=== PATIENT | female | born 1955 | race Caucasian/White ===

== ENCOUNTER 2016-04-12 09:29 | Emergency (ER) | payer MEDICARE, OTHER ==
--- NOTE | 2016-04-12 09:49 | ED ---
Chest Pain HPI - General Chief Complaint: Chest Pain Stated Complaint: Chest Pain Time Seen by Provider: 04/12/16 09:29 Source: patient, EMS, RN notes reviewed Mode of arrival: EMS - History of Present Illness Initial Comments: Additionally the patient does admit to smoking for 6 cigarettes per day she had quit but started again did discuss the need for cessation. She additionally states that the symptoms started after eating a banana and bending over. She does have reflux and hiatal hernia and she has she believes this is a cause of the pain. MD Complaint: chest pain - Related Data Home Medications Medication Instructions Recorded Confirmed Ascorbic Acid [Vitamin C] 1,000 mg PO HS 09/05/13 04/12/16 Baclofen [Lioresal] 10 mg PO DAILY PRN 09/05/13 04/12/16 Ergocalciferol [Vitamin D2 50,000 unit PO SA 09/05/13 04/12/16 (DRISDOL)] amLODIPine BESYLATE [Norvasc] 5 mg PO BID 09/05/13 04/12/16 Ondansetron Odt [Zofran Odt] 8 mg PO Q12HR PRN 11/11/13 04/12/16 Cetirizine HCl [Zyrtec] 10 mg PO DAILY PRN 06/29/15 04/12/16 Famotidine 40 mg PO BID 06/29/15 04/12/16 Levothyroxine Sodium [Synthroid] 25 mcg PO DAILY 06/29/15 04/12/16 Lidocaine [Lidoderm 5% Patch] 1 patch TRANSDERM DAILY PRN 06/29/15 04/12/16 Calcium Carbonate [Tums] 1,000 mg PO DAILY 04/12/16 04/12/16 Cyanocobalamin [Vitamin B-12] 1,000 mcg PO DAILY 04/12/16 04/12/16 Magnesium Oxide [Magnesium Oxide] 500 mg PO BID 04/12/16 04/12/16 buPROPion HCL [Wellbutrin XL] 150 mg PO DAILY 04/12/16 04/12/16 Allergies Allergy/AdvReac Type Severity Reaction Status Date / Time adhesive Allergy Unknown Verified 04/12/16 10:27 amitriptyline HCl Allergy Unknown Verified 04/12/16 10:27 [From Elavil] bacitracin Allergy Unknown Verified 04/12/16 10:27 [From Neosporin ([id number])] codeine Allergy Unknown Verified 04/12/16 10:27 cortisone Allergy Unknown Verified 04/12/16 10:27 Iodinated Contrast Media - Allergy Unknown Verified 04/12/16 10:27 Oral and iodine Allergy Unknown Verified 04/12/16 10:27 latex Allergy Unknown Verified 04/12/16 10:27 naproxen [From Naprosyn] Allergy Unknown Verified 04/12/16 10:27 neomycin Allergy Unknown Verified 04/12/16 10:27 [From Neosporin ([id number])] polymyxin B Allergy Unknown Verified 04/12/16 10:27 [From Neosporin ([id number])] triamcinolone acetonide Allergy Unknown Verified 04/12/16 10:27 [From Kenalog] Review of Systems ROS Statement: Those systems with pertinent positive or pertinent negative responses have been documented in the HPI. ROS Other: All systems not noted in ROS Statement are negative. EKG Findings - EKG Results: EKG: interpreted by BRITTANY, sinus rhythm (Sinus rhythm rate 67. Interval 182 QRS duration 106 daily since QTC of 14/ evidence of a complete left bundle- branch block no acute ST-T wave changes. When compared with an EKG dated appears be no significant difference.) Past Medical History Past Medical History: Chest Pain / Angina, Diabetes Mellitus, Fibromyalgia, Hypertension, Mitral Valve Prolapse (MVP), Osteoarthritis (OA), Thyroid Disorder Additional Past Medical History / Comment(s): hiatal hernia, barretts esopagus, mauricio barre History of Any Multi-Drug Resistant Organisms: None Reported Past Surgical History: Section, Hysterectomy, Tonsillectomy Past Anesthesia/Blood Transfusion Reactions: No Reported Reaction Past Psychological History: Depression Smoking Status: Former smoker Past Alcohol Use History: None Reported Additional Past Alcohol Use History / Comment(s): pt. 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 Absent: scleral icterus, conjunctival injection, periorbital swelling ENT exam: Present: normal exam, mucous membranes moist Neck exam: Present: normal inspection. Absent: tenderness, meningismus, lymphadenopathy Respiratory exam: Present: normal lung sounds bilaterally, chest wall tenderness (Mild chest wall tenderness over the costal sternal junctions but this does not reproduce her pain she states.). Absent: respiratory distress, wheezes, rales, rhonchi, stridor Cardiovascular Exam: Present: regular rate, normal rhythm, normal heart sounds. Absent: systolic murmur, diastolic murmur, rubs, gallop, clicks GI/Abdominal exam: Present: soft, normal bowel sounds. Absent: distended, tenderness, guarding, rebound, rigid Extremities exam: Present: normal inspection, full ROM, normal capillary refill. Absent: tenderness, pedal edema, joint swelling, calf tenderness Back exam: Present: normal inspection Neurological exam: Present: alert, oriented X3, CN II-XII intact Psychiatric exam: Present: normal affect, normal mood Skin exam: Present: warm, dry, intact, normal color. Absent: rash Course Vital Signs 04/12/16 04/12/16 09:41 11:41 Temperature 97.9 F Pulse Rate 65 68 Respiratory 18 16 Rate Blood Pressure 125/60 121/78 O2 Sat by Pulse 100 99 Oximetry Chest Pain MDM - MDM I did discuss the findings with the patient she has remained asymptomatic. He has had a recent workup for heart disease which was negative the symptoms are likely secondary to her hiatal hernia as stated. She'll be discharged with follow-up with her doctor return if any problems. Disposition Clinical Impression: Atypical chest pain, Gastroesophageal reflux disease Disposition: HOME SELF-CARE Condition: Good Instructions: Chest Pain (ED), Hiatal Hernia (ED)
--- NOTE | 2016-04-12 10:11 | XR ---
EXAMINATION TYPE: XR chest 2V DATE OF EXAM: 04/12/2016 9:57 AM COMPARISON: 06/29/2015 HISTORY: Chest pain FINDINGS: The lungs are clear and there is no pneumothorax, pleural effusion, or focal pneumonia. Degenerativ e change of the spine noted. IMPRESSION: 1. No acute process.
[2016-04-12 10:55] LABS: Basophils % (A) 1 %; CH 30.6; CHCM 33.5; Eosinophils # (A) 0.1 k/uL (0-0.7); Eosinophils % (A) 2 %; HCT 37.1 % (34.0-46.0); HDW 2.35; HGB 12.9 gm/dL (11.4-16.0); Luc # (Auto) 0.16; Luc % (Auto) 3; Lymphocytes # (A) 1.8 k/uL (1.0-4.8); Lymphocytes % (A) 37 %; MCHC 34.9 g/dL (31.0-37.0); MCV 91.7 fL (80.0-100.0); Mean Platelet Volume 6.9; Monocytes # (A) 0.4 k/uL (0-1.0); Monocytes % (A) 7 %; Neutrophils # (A) 2.5 k/uL (1.3-7.7); Neutrophils % (A) 50 %; RBC 4.04 m/uL (3.80-5.40); RDW 12.7 % (11.5-15.5); WBC (Perox) 5.66
[2016-04-12 11:04] LABS: ALT 36 U/L (9-52); AST 20 U/L (14-36); Alkaline Phosphatase 129 U/L (38-126); Amylase 63 U/L (30-110); Anion Gap 9 mmol/L; Blood Urea Nitrogen 23 mg/dL (7-17); Calcium 9.5 mg/dL (8.4-10.2); Carbon Dioxide 28 mmol/L (22-30); Chloride 107 mmol/L (98-107); Glucose 92 mg/dL (74-99); Non-African American GFR(MDRD) >60 (>60 ml/min/1.73 sqM); Potassium 4.5 mmol/L (3.5-5.1); Sodium 144 mmol/L (137-145); Total Bilirubin 0.3 mg/dL (0.2-1.3); Total Protein 6.5 g/dL (6.3-8.2)
[2016-04-12 11:09] LABS: Partial Thromboplastin Time 25.4 sec (22.0-30.0); Prothrombin Time 10.2 sec (9.0-12.0)
[2016-04-12 11:20] LABS: Creatine Kinase 171 U/L (30-135)
[2016-04-12 11:32] LABS: Troponin I <0.012 ng/mL (0.000-0.034)
[2016-04-12 11:42] VITALS: RESP 16
[2016-04-12 12:51] VITALS: BP 155/76; PULSE 69; TEMP 96.9
== END 2016-04-12 12:51 | disposition home or self-care (01) ==
LOC: EC 09:29
DX: R07.89 Other chest pain (principal); K21.9 Gastro-esophageal reflux disease without esophagitis; K44.9 Diaphragmatic hernia without obstruction or gangrene; F17.210 Nicotine dependence, cigarettes, uncomplicated; I10 Essential (primary) hypertension; I34.1 Nonrheumatic mitral (valve) prolapse; E07.9 Disorder of thyroid, unspecified; M79.7 Fibromyalgia; M19.90 Unspecified osteoarthritis, unspecified site; F32.9 Major depressive disorder, single episode, unspecified; Z79.899 Other long term (current) drug therapy; Z88.6 Allergy status to analgesic agent; Z88.1 Allergy status to other antibiotic agents; Z91.041 Radiographic dye allergy status; Z91.040 Latex allergy status; Z88.5 Allergy status to narcotic agent; Z91.09 Other allergy status, other than to drugs and biological substances
CPT/HCPCS: 36415; 71020; 80053; 82150; 82550; 82553; 83690; 83735; 84484; 85025; 85379; 85610; 85730; 93005; 99285

== ENCOUNTER → 2016-05-03 | Outpatient (CLI) | payer MEDICARE, OTHER ==
[2016-05-03 13:40] VITALS: BMI 36.3
== END | disposition home or self-care (01) ==
LOC: DBWHC3 12:49
PROVIDERS: ATTEND Nurse Practitioner Family
DX: E11.9 Type 2 diabetes mellitus without complications (principal)

== ENCOUNTER → 2016-05-04 | Outpatient (CLI) | payer MEDICARE, OTHER ==
[2016-05-04 13:41] VITALS: BP 136/68; PULSE 69; RESP 16
--- NOTE | 2016-05-04 14:19 | P.CONS ---
History of Present Illness - Reason for Consult Consult date: 05/04/16 - History of Present Illness This is the initial consultation visit for this 60 years FEMALE, with a chronic history of generalized neck upper back and mid back and low back pain, intensity of the pain increased over the last few months, he denies any initiating event, no history of trauma no history of falling, no history of heavy lifting, pain intensity increases with any activity, occasionally she complained of some numbness and tingling sensation in the upper extremities and in the lower extremities , she had no back or neck surgery, patient denies any motor or sensory deficit, she denies any fever or night sweats, she denies any change in bowel movement or urination, she is able to ambulate without difficulty, Past Medical History Past Medical History: Chest Pain / Angina, Diabetes Mellitus, Fibromyalgia, Hypertension, Mitral Valve Prolapse (MVP), Osteoarthritis (OA), Thyroid Disorder Additional Past Medical History / Comment(s): hiatal hernia, barretts esopagus, mauricio barre. [facility]. History of Any Multi-Drug Resistant Organisms: None Reported Past Surgical History: Section, Hysterectomy, Tonsillectomy Past Anesthesia/Blood Transfusion Reactions: No Reported Reaction Past Psychological History: Depression Smoking Status: Former smoker Past Alcohol Use History: None Reported Additional Past Alcohol Use History / Comment(s): pt. 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, has been sober for 5 years Past Drug Use History: None Reported - Past Family History Father Family Medical History: Congestive Heart Failure (CHF) Medications and Allergies Home Medications Medication Instructions Recorded Confirmed Type Ascorbic Acid [Vitamin C] 1,000 mg PO BID 09/05/13 05/04/16 History Baclofen [Lioresal] 10 mg PO DAILY PRN 09/05/13 05/04/16 History Ergocalciferol [Vitamin D2 50,000 unit PO SA 09/05/13 05/04/16 History (DRISDOL)] amLODIPine BESYLATE [Norvasc] 5 mg PO BID 09/05/13 05/04/16 History Ondansetron Odt [Zofran Odt] 8 mg PO Q12HR PRN 11/11/13 05/04/16 History Cetirizine HCl [Zyrtec] 10 mg PO DIRECTED PRN 06/29/15 05/04/16 History Famotidine 40 mg PO BID 06/29/15 05/04/16 History Levothyroxine Sodium [Synthroid] 25 mcg PO DAILY 06/29/15 05/04/16 History Lidocaine [Lidoderm 5% Patch] 1 patch TRANSDERM DAILY PRN 06/29/15 05/04/16 History Calcium Carbonate [Tums] 1,000 mg PO DAILY 04/12/16 05/04/16 History Cyanocobalamin [Vitamin B-12] 1,000 mcg PO DAILY 04/12/16 05/04/16 History Magnesium Oxide [Magnesium Oxide] 500 mg PO DAILY 04/12/16 05/04/16 History buPROPion HCL [Wellbutrin XL] 150 mg PO DAILY 04/12/16 05/04/16 History Carbamide Peroxide [Debrox Otic] 5 drops TOPICAL BID PRN 05/04/16 05/04/16 History Flaxseed Oil [Henderson-3 Flaxseed Oil] 1 cap PO DAILY 05/04/16 05/04/16 History Lidocaine 2% Gel [Xylocaine Jelly 1 applicate TOPICAL DAILY PRN 05/04/16 History 2%] Allergies Allergy/AdvReac Type Severity Reaction Status Date / Time codeine Allergy Severe Nausea & Verified 05/04/16 13:21 Vomiting cortisone Allergy Severe Swelling Verified 05/04/16 13:21 dexamethasone Allergy Severe Swelling Verified 05/04/16 13:21 Iodinated Contrast Media - Allergy Severe Rash/Hives Verified 05/04/16 13:21 Oral and naproxen [From Naprosyn] Allergy Severe Anaphylaxis Verified 05/04/16 13:21 adhesive Allergy Intermediate Itching Verified 05/04/16 13:21 bacitracin Allergy Intermediate Swelling Verified 05/04/16 13:21 [From Neosporin ([id number])] latex Allergy Unknown Itching Verified 05/04/16 13:21 neomycin Allergy Unknown Verified 05/04/16 13:21 [From Neosporin ([id number])] polymyxin B Allergy Unknown Verified 05/04/16 13:21 [From Neosporin ([id number])] amitriptyline HCl AdvReac Intermediate Unknown Verified 05/04/16 13:21 [From Elavil] Physical Exam Vitals: Vital Signs Pulse Resp BP Pulse Ox 05/04/16 13:28 69 16 136/68 96 Intake and Output 05/03/16 05/04/16 05/04/16 22:59 06:59 14:59 Other: Weight 90.265 kg Patient Weight 05/05/16 06:59 Weight 90.265 kg Social history : smoker , NO ETOH , NO Illegal drugs use Review of Systems : 1- Constitutional : no chills , no fever , no night sweats , 2- Ears : no ear discharge , no change in hearing 3-Nose, Mouth ,Throat ; no bleeding gums, no sore throat , no epistaxis , 4-Cardiovascular : Denies chest pain, , no orthopnea , no palpitation 5-Respiratory : Denies cough , no dyspnea , no hemoptysis 6-Gastrointestinal :, no change in bowel habits , no coffee- ground emesis . 7-Genitourinary : No hematuria , no discharge , no incontinence, 8-Musculoskeletal : No gait dysfunction , report low back pain , 9- Neurological : no ataxia , no tremor , no sezure , 10-Psychatric , no suicidal ideation no hallucination 11- Endocrine : no cold intolerence , no polyuria , no polydypsia , 12-Hematologic : no easy bleeding , no easy brusing , 13-Allergic / immunology : no angioedema , no wheezing ,no allergic rhinitis 14-Integumentary : no brttle nails , no change hair / nails , no foot/leg ulcers . Physical Examinations : 1-Constitutional : Cooperative , not in acute distress . 2-HEENT : nech ; supple , no Lymphadenopathy , no Thyromegaly , eyes , no icterus, no photophobia . ENT : , normal oropharynx , no Thrush 3- Respiratory : Chest clear to auscultations Bilaterally , no wheezing . 4- Cardiovascular : regular rate and rhythem , S1 , S2 , no S3 , no S4. 5- Gastrointestinal: abdomen soft no tenderness , no organomegally . 6- Genitourinary : Defferred . 7-Integumentary : No cellulitis , no ulcers , normal skin turgor , no cyanotic . 8- neurologic : Cranial nerve II to XII intact , no focal neurological deffecit 9-psychatric : alert , oriented X 3 , appropriate affect , intact judgment and insight . 10-Lymphatic : no Lymphadenopathy. 11- musculoskeltal: normal gait , exams of the cervical spine = motor stregnth in the deltoid and biceps, normal right side , normal Left side motor stregnth biceps and the wrist extensors normal right side ,normal left side . motor stregnth in the triceps muscle . normal Right side , normal Left side deep tendon reflexes normal at the biceps , normal at Brachioradialis , normal at triceps. positive cervical facet loading test . Degrees abduction movement of the left shoulder Multiple trigger points identified in the cervical paravertebral muscles and thoracic paravertebral muscles exams of the Lumber spine = moter stegnth lower extremities , thigh and legs 5/5 Right side , 5/5 Left side deep tendon reflexes : normal Knee Jerk , normal ankle Jerk positive lumber facet Loading Test Range of motion of the lumbar spine Flexion 30 degrees, extension 10 degrees strait leg raising test negative bilaterally Fabere test negative bilaterally Multiple trigger points identified in the lumbar paravertebral muscles Results Comments: MRI of the cervical and lumbar spine done 03/19/2015 showed C4 5 disc herniation and see 56 C6 7 facet hypertrophy, and MRI of the lumbar spine at 12/2014 showed L3 4 and L4 5 and L5-S1 facet joint hypertrophy, and L2-3, L3-4 disc bulging Assessment and Plan Plan: Assessment and plan = -Myofascial pain syndrome cervical/thoracic/lumbar area - Chronic low back pain secondary to lumbar degenerative disc disease , lumbar spondylosis with facet arthropathy without myelopathy , -Chronic neck pain secondary to cervical degenerative disc disease , cervical spondylosis with cervical facet arthropathy without myelopathy . - diagnoses, prognosis, and treatment options including but not limited to physical therapy, surgical interventions, interventional therapies and medication management including narcotics and adjuvant medication were discussed with the patient and all questions answered to the patient's satisfaction. -procedure= patient will be scheduled to have trigger point injection, cervical /thoracic/lumbar The patient continued to have pain then we will consider doing a classic medial branch block lumbar/cervical area and possible radiofrequency ablation, we will evaluate patient response to the trigger point injection first and then we will determine the next step ,if she continues to have pain, treatment plan discussed with the patient ,and she agreed with the preceding Time with Patient: Greater than 30
== END | disposition home or self-care (01) ==
LOC: PNWHC3 13:01
PROVIDERS: ATTEND Specialist
DX: M79.1 Myalgia (principal); M51.36 Other intervertebral disc degeneration, lumbar region; M47.816 Spondylosis without myelopathy or radiculopathy, lumbar region; M46.96 Unspecified inflammatory spondylopathy, lumbar region; M50.30 Other cervical disc degeneration, unspecified cervical region; M47.812 Spondylosis without myelopathy or radiculopathy, cervical region; M46.92 Unspecified inflammatory spondylopathy, cervical region; M50.222 Other cervical disc displacement at C5-C6 level; M50.223 Other cervical disc displacement at C6-C7 level; M51.26 Other intervertebral disc displacement, lumbar region; Z79.899 Other long term (current) drug therapy; F17.200 Nicotine dependence, unspecified, uncomplicated; Z88.6 Allergy status to analgesic agent; Z88.1 Allergy status to other antibiotic agents; Z91.040 Latex allergy status; Z88.8 Allergy status to other drugs, medicaments and biological substances; Z91.048 Other nonmedicinal substance allergy status; I20.9 Angina pectoris, unspecified; E11.9 Type 2 diabetes mellitus without complications; M79.7 Fibromyalgia; I10 Essential (primary) hypertension; I34.1 Nonrheumatic mitral (valve) prolapse; M19.90 Unspecified osteoarthritis, unspecified site; E07.9 Disorder of thyroid, unspecified
CPT/HCPCS: 99211

== ENCOUNTER 2016-06-03 08:28 | Day surgery (SDC) | payer MEDICARE, OTHER ==
[2016-05-25 11:07] VITALS: BMI 36.3
[~2016-06-03 08:28] MED LIST: LACTATED RINGERS 1,000 ML IV SCH
[2016-06-03 08:52] VITALS: TEMP 98.3
[2016-06-03 09:00] LABS: Glucose,Whole Blood 104 mg/dL (75-99)
[2016-06-03] MEDS ORDERED: BUPIVACAINE (PF) 0.5% 30 ML VIAL ONE (09:35)
[2016-06-03] MEDS ORDERED: TRIAMCINOLONE ACETONIDE 40 MG/ML 1 ML VIAL ONE (09:35)
[2016-06-03 10:04] VITALS: RESP 18
[2016-06-03 10:19] VITALS: BP 135/78; PULSE 75
--- NOTE | 2016-06-03 10:39 | XR ---
EXAMINATION TYPE: XR chest 1V portable DATE OF EXAM: 06/03/2016 10:22 AM HISTORY: eval ptx after injection, d/c pending x-ray. REFERENCE: Previous study dated 04/12/2016. FINDINGS: The lungs are clear. Pleural spaces are clear. I do not see evidence of pneumothorax. Heart size is upper limits of normal. IMPRESSION: NO ACUTE INTRATHORACIC ABNORMALITY.
--- NOTE | 2016-06-03 13:21 | P.PCN ---
Date of Procedure: 06/03/16 Anesthesia: local Surgeon: Chase Bullock Pathology: none sent Condition: stable Disposition: PACU Description of Procedure: PREOPERATIVE DIAGNOSIS: 1-myofascial pain syndrome POSTOPERATIVE DIAGNOSIS: 1-myofascial pain syndrome PROCEDURE 1. Trigger point injections (cervical/thoracic/lumbar paravertebral muscles) ANESTHESIA: Local with 1% lidocaine; IV sedation with Versed/fentanyl. EBL: Minimal PROCEDURE INDICATION: The patient with myofascial pain in the area of cervical paraspinal, thoracic paraspinal, and lumbar paraspinal muscles that has not responded to conservative therapy. Patient presents for trigger point injection today; no use of blood thinners. PROCEDURE DESCRIPTION / TECHNIQUE: The patient was seen and identified in the preoperative area. Risks, benefits, complications, and alternatives were discussed with the patient, including but not limited to bleeding, infection, nerve damage, allergic reactions to medications, and incomplete pain relief. The patient agreed to proceed with the procedure and signed the consent after all questions were answered. IV was started, and vital signs were stable. Trigger points were marked prior to entering the procedure room in the places where the patient had severe pain to muscle palpation. Patient was taken to the OR and time out was completed to confirm patient position, procedure, laterality of pain, and allergies. The patient was placed in the sitting position on procedure table. The area over the cervical paravertebral, thoracic paravertebral, and lumbar paravertebral muscles was prepped and draped in the usual sterile fashion. Vital signs were closely monitored during the procedure. Conscious sedation was used during the procedure to decrease patients anxiety. Each of the previously marked 15 areas was then infiltrated with 1% plain lidocaine using a 25g needle. After this, each point was entered with the same 25g needle and after a catch was felt, dry needling was performed. After negative aspiration at each point, 1 ml of a total of 15 ml (combination of 13 ml 0.5% bupivacaine and 80 mg Kenalog was injected in each area. Needle was withdrawn intact each time, skin was cleansed, and bandages were applied. COMPLICATIONS: None COMMENTS: None DISPOSITION / PLANS: The patient was placed in a supine position and transferred to the recovery area in a stable condition for observation. There was no evidence of lower extremity motor or sensory deficit after the procedure. Patient was discharged from the recovery room after meeting discharge criteria. Home discharge instructions were given to the patient by the staff. The patient was reexamined prior to discharge and she was feeling significantly better. The patient will schedule a follow up in the clinic as needed.
== END 2016-06-03 10:47 | disposition home or self-care (01) ==
LOC: ORPAIN 08:28
PROVIDERS: ATTEND Anesthesiology
DX: G89.29 Other chronic pain (principal); M79.1 Myalgia; M51.36 Other intervertebral disc degeneration, lumbar region; M47.816 Spondylosis without myelopathy or radiculopathy, lumbar region; M46.96 Unspecified inflammatory spondylopathy, lumbar region; M50.30 Other cervical disc degeneration, unspecified cervical region; M47.812 Spondylosis without myelopathy or radiculopathy, cervical region; M46.92 Unspecified inflammatory spondylopathy, cervical region; F41.9 Anxiety disorder, unspecified; F32.9 Major depressive disorder, single episode, unspecified; I20.9 Angina pectoris, unspecified; E11.9 Type 2 diabetes mellitus without complications; I10 Essential (primary) hypertension; E07.9 Disorder of thyroid, unspecified; Z88.5 Allergy status to narcotic agent; Z91.041 Radiographic dye allergy status; Z88.6 Allergy status to analgesic agent; Z88.1 Allergy status to other antibiotic agents; Z91.040 Latex allergy status; Z91.048 Other nonmedicinal substance allergy status; Z88.8 Allergy status to other drugs, medicaments and biological substances; Z79.899 Other long term (current) drug therapy; Z87.891 Personal history of nicotine dependence
CPT/HCPCS: 71010; 20553; J3301

== ENCOUNTER → 2016-08-16 | Outpatient (CLI) | payer MEDICARE, OTHER ==
[2016-08-16 13:17] VITALS: BP 141/80; PULSE 71; RESP 18; TEMP 98.8
--- NOTE | 2016-08-17 13:57 | P.PN ---
Subjective This follow-up visit for this 60 years old female, chronic history of neck pain and upper back pain and low back pain,she is diagnosed with myofascial pain syndrome cervicothoracic and lumbar area, and cervical and lumbar spondylosis and cervical lumbar degenerative disc disease, , at disposed trigger point injection done several weeks ago, reported that she had no benefit from the trigger point injection, he continues to have severe neck pain and low back pain , use muscle relaxant baclofen/Flexeril and she had side effects from these medications , she is here for reevaluation Physical Examinations : 1-Constitutiona : Cooperative , not in acute distress . 2-HEENT : nech ; supple , no Lymphadenopathy , normal thyroid size . eyes : no ptosis , no icterus, no photophobia . ENT : normal of hearing , normal oropharynx , no Thrush . 3- Respiratory : Chest clear to auscultations Bilaterally , no wheezing , no Rhonchi . 4- Cardiovascular : regular rate and rhythem , S1 , S2 , no S3 , no S4. 5- Gastrointestinal : abdomen soft no tenderness , bowel sounds positive all four quadrents , no organomegally . 6- Genitourinary : Defferred . 7- neurologic : Cranial nerve II to XII intact , no focal neurological deffecit . 8-psychatric : alert , oriented X 3 , appropriate affect , intact judgment and insight . 9-Lymphatic : no Lymphadenopathy . 10- musculoskeltal : cervical spine = motor stregnth in the deltoid and biceps, motor stregnth biceps and the wrist extensors (C6) . motor stregnth in the triceps muscle . deep tendon reflexes normal at the biceps , l normal at Brachioradialis normal at the triceps , positive cervical facet loading test . Multiple trigger point identified in the cervical paravertebral muscles exams of the Lumber spine = normal moter stegnth lower extremities ,thigh and legs .5/5 deep tendon reflexes : normal Knee Jerk , normal ankle Jerk . positive lumber facet Loading Test Multiple trigger points identified in the lumbar paravertebral muscles assessment and plan= myofascial pain syndrome and cervical/thoracic/lumbar area. Cervical/lumbar spondylosis with cervical and lumbar spine facet arthropathy Cervical/lumbar degenerative disc disease. Status post trigger point injection patient had no benefit from it , discussed with the patient the option of doing an interventional pain management which is diagnostic medial branch block lumbar area/cervical area, Verses for her for physical therapy,patient had no interest in doing physical therapy or interventional pain management , she prefers medication management for this reason patient will be started on Zanaflex 2 mg twice a day when necessary, she'll follow with the pain clinic in 2 months Objective - Vital Signs Vital signs: Vital Signs Temp 98.8 F 08/16/16 13:10 Pulse 71 08/16/16 13:10 Resp 18 08/16/16 13:10 BP 141/80 08/16/16 13:10 Pulse Ox 97 08/16/16 13:10 Intake & Output 08/16/16 08/17/16 08/17/16 18:59 06:59 18:59 Weight 90.718 kg
== END | disposition home or self-care (01) ==
LOC: PNWHC3 12:52
PROVIDERS: ATTEND Specialist
DX: M51.36 Other intervertebral disc degeneration, lumbar region (principal); M50.30 Other cervical disc degeneration, unspecified cervical region; M47.816 Spondylosis without myelopathy or radiculopathy, lumbar region; M47.812 Spondylosis without myelopathy or radiculopathy, cervical region; M46.86 Other specified inflammatory spondylopathies, lumbar region; M46.82 Other specified inflammatory spondylopathies, cervical region
CPT/HCPCS: 99211

== ENCOUNTER → 2016-09-09 | Outpatient (CLI) | payer MEDICARE, OTHER ==
--- NOTE | 2016-09-10 09:47 | MM ---
Reason for exam: screening (asymptomatic). Last mammogram was performed 1 year and 5 months ago. History: Patient is postmenopausal. Took hormonal contraceptives for 6 months. Took estrogen for 3 months. Took progesterone for 3 months. Physical Findings: A clinical breast exam by your physician is recommended on an annual basis and results should be correlated with mammographic findings. MG 3D Screening Mammo W/Cad Bilateral CC and MLO view(s) were taken. XCCL view(s) were taken of the right breast. Prior study comparison: April 02, 2015, right breast MG 3d work up w/cad RT. March 24, 2015, bilateral MG screening mammo w CAD. The breast tissue is heterogeneously dense. This may lower the sensitivity of mammography. Benign calcifications. No significant changes when compared with prior studies. ASSESSMENT: Benign, BI-RAD 2 RECOMMENDATION: Routine screening mammogram of both breasts in 1 year.
== END | disposition home or self-care (01) ==
LOC: RADMAMWWP 15:43
PROVIDERS: ATTEND Family Medicine
DX: Z12.31 Encounter for screening mammogram for malignant neoplasm of breast (principal)
CPT/HCPCS: 77063; G0202

== ENCOUNTER → 2016-09-09 | Outpatient (CLI) | payer MEDICARE, OTHER ==
--- NOTE | 2016-09-09 15:59 | CT ---
EXAMINATION TYPE: CT abdomen pelvis wo con DATE OF EXAM: 09/09/2016 COMPARISON: NONE HISTORY: Episode of hematuria [address] DLP: 893.80 mGycm Automated exposure control for dose reduction was used. FINDINGS: Visualized portions of the lungs are clear. There is no pleural or pericardial fluid. The h eart is not enlarged. Within the abdomen, there is a coarse calcification in the posterior segment of the right lobe of the liver. This may be secondary to old granulomatous disease. The spleen and gallbladder are normal. Both adrenal glands appear normal. There is no evidence of nephrolithiasis or hydronephrosis. Limited views of the pancreas are normal. There is no significant retroperitoneal, iliac or inguinal adenopathy. The uterus and ovaries are not visualized. The bladder is unremarkable. There is mild diverticular change throughout the left side of the colon. There is no radiographic karen dence of diverticulitis. The appendix is normal. Small bowel loops appear normal. No free fluid and no free air is seen. There is delayed diffuse degenerative disc disease and hypertrophic spondylosis throughout the spine. There is facet arthropathy in the lower lumbar spine and there is a degenerative grade 1 spondylolis thesis of L4 on L5. IMPRESSION: 1. COARSE CALCIFICATION IN THE POSTERIOR SEGMENT OF THE RIGHT LOBE LIVER LIKELY REFLECTS OLD GRANULOM ATOUS DISEASE. 2. WE HAVE NOT IDENTIFIED ACROSS THIS PATIENT'S HEMATURIA. 3. UNCOMPLICATED DIVERTICULAR CHANGE WITHIN THE LEFT SIDE OF THE COLON. 4. DIFFUSE DEGENERATIVE DISC DISEASE AND HYPERTROPHIC SPONDYLOSIS WELL FACET ARTHROPATHY WITH A GRADE 1 DEGENERATIVE SPONDYLOLISTHESIS OF L4 ON L5.
== END | disposition home or self-care (01) ==
LOC: RADCTMAIN 15:31
PROVIDERS: ATTEND Urology
DX: K57.30 Diverticulosis of large intestine without perforation or abscess without bleeding (principal); K76.89 Other specified diseases of liver
CPT/HCPCS: 74176

== ENCOUNTER 2017-06-07 12:57 | Emergency (ER) | payer MEDICARE, OTHER ==
[2017-06-07 13:03] VITALS: BP 145/91; PULSE 71; RESP 18; TEMP 97.8
--- NOTE | 2017-06-07 13:06 | ED ---
General Adult HPI - General Chief complaint: Chest Pain Stated complaint: chest pain Time Seen by Provider: 06/07/17 13:03 Source: patient, EMS, RN notes reviewed, old records reviewed Mode of arrival: EMS Limitations: no limitations - History of Present Illness Initial comments: This is a 61-year-old female to the ER for evaluation of chest pain. Patient has history of chest pain high blood pressure high cholesterol. No recent travel history no sick contacts. Patient has no recent fevers cough or congestion. She began eating tonight and began to have some pain, she was concerning to the ER. Patient states she is currently without pain - Related Data Home Medications Medication Instructions Recorded Confirmed Ascorbic Acid [Vitamin C] 1,000 mg PO DAILY 09/05/13 06/07/17 Ergocalciferol [Vitamin D2 50,000 unit PO TH 09/05/13 06/07/17 (DRISDOL)] Cetirizine HCl [Zyrtec] 10 mg PO DAILY PRN 06/29/15 06/07/17 Famotidine 40 mg PO DAILY 06/29/15 06/07/17 Levothyroxine Sodium [Synthroid] 25 mcg PO DAILY 06/29/15 06/07/17 Lidocaine [Lidoderm 5% Patch] 1 patch TRANSDERM DAILY PRN 06/29/15 06/07/17 Calcium Carbonate [Tums] 500 mg PO DAILY 04/12/16 06/07/17 Magnesium Oxide [Magnesium Oxide] 500 mg PO DAILY 04/12/16 06/07/17 Lidocaine 2% Gel [Xylocaine Jelly 1 applicate TOPICAL DAILY PRN 05/04/16 2%] Olopatadine HCl [Pataday] 2.5 ml OP DAILY PRN 05/25/16 06/07/17 Cholestyramine/Aspartame 4 gm PO BID 06/07/17 06/07/17 [Cholestyramine Light Packet] Fluticasone Nasal Matador [Flonase 2 spr EA NOSTRIL DAILY PRN 06/07/17 06/07/17 Nasal Matador] Pantoprazole [Protonix] 40 mg PO HS 06/07/17 06/07/17 Sulfamethox-Tmp 800-160Mg [Bactrim 1 tab PO Q12HR 06/07/17 06/07/17 DS 800-160 mg] amLODIPine [Norvasc] 5 mg PO DAILY 06/07/17 06/07/17 buPROPion HCL [Wellbutrin SR] 150 mg PO DAILY 06/07/17 06/07/17 Previous Rx's Medication Instructions Recorded tiZANidine HCL [Zanaflex] 2 mg PO BID PRN #60 capsule 08/16/16 Allergies Allergy/AdvReac Type Severity Reaction Status Date / Time codeine Allergy Severe Nausea & Verified 06/07/17 13:22 Vomiting cortisone Allergy Severe Swelling Verified 06/07/17 13:22 dexamethasone Allergy Severe Swelling Verified 06/07/17 13:22 Iodinated Contrast- Oral and Allergy Severe Rash/Hives Verified 06/07/17 13:22 IV Dye [Iodinated Contrast Media - Oral and] naproxen [From Naprosyn] Allergy Severe Anaphylaxis Verified 06/07/17 13:22 adhesive Allergy Intermediate Itching Verified 06/07/17 13:22 bacitracin Allergy Intermediate Swelling Verified 06/07/17 13:22 [From Neosporin ([id number])] latex Allergy Unknown Itching Verified 06/07/17 13:22 neomycin Allergy Unknown Verified 06/07/17 13:22 [From Neosporin ([id number])] polymyxin B Allergy Unknown Verified 06/07/17 13:22 [From Neosporin ([id number])] amitriptyline HCl AdvReac Intermediate Unknown Verified 06/07/17 13:22 [From Elavil] Review of Systems ROS Statement: Those systems with pertinent positive or pertinent negative responses have been documented in the HPI. ROS Other: All systems not noted in ROS Statement are negative. Past Medical History Past Medical History: Chest Pain / Angina, Diabetes Mellitus, Fibromyalgia, Hypertension, Mitral Valve Prolapse (MVP), Osteoarthritis (OA), Thyroid Disorder Additional Past Medical History / Comment(s): hiatal hernia, barretts esopagus, mauricio barre. [facility] NEUROMA. degenerative disc disease, osteoperosis History of Any Multi-Drug Resistant Organisms: None Reported Past Surgical History: Section, Hysterectomy, Tonsillectomy Past Anesthesia/Blood Transfusion Reactions: No Reported Reaction Past Psychological History: Depression Smoking Status: Current every day smoker Past Alcohol Use History: None Reported Past Drug Use History: None Reported - Past Family History Father Family Medical History: Congestive Heart Failure (CHF) General Exam Limitations: no limitations General appearance: alert, in no apparent distress Head exam: Present: atraumatic, normocephalic, normal inspection Eye exam: Present: normal appearance, PERRL, EOMI. Absent: scleral icterus, conjunctival injection, periorbital swelling ENT exam: Present: normal exam, mucous membranes moist Neck exam: Present: normal inspection. Absent: tenderness, meningismus, lymphadenopathy Respiratory exam: Present: normal lung sounds bilaterally. Absent: respiratory distress, wheezes, rales, rhonchi, stridor Cardiovascular Exam: Present: regular rate, normal rhythm, normal heart sounds. Absent: systolic murmur, diastolic murmur, rubs, gallop, clicks GI/Abdominal exam: Present: soft, normal bowel sounds. Absent: distended, tenderness, guarding, rebound, rigid Extremities exam: Present: normal inspection, full ROM, normal capillary refill. Absent: tenderness, pedal edema, joint swelling, calf tenderness Back exam: Present: normal inspection Neurological exam: Present: alert, oriented X3, CN II-XII intact Psychiatric exam: Present: normal affect, normal mood Skin exam: Present: warm, dry, intact, normal color. Absent: rash Course Vital Signs 06/07/17 13:01 Temperature 97.8 F Pulse Rate 71 Respiratory 18 Rate Blood Pressure 145/91 O2 Sat by Pulse 98 Oximetry - Reevaluation(s) Reevaluation #1: Patient states she remains without pain throughout ER stay EKG Findings - EKG Comments: EKG Findings:: EKG shows normal sinus rhythm rate of 69, IN 132, QRS 06, QTc 4: 30 Medical Decision Making - Medical Decision Making 60 female DEL chest pain after eating today. She feels like she is having reflux anterior chest pain. Patient has normal EKG, normal troponin. Patient can be discharged home - Lab Data Result diagrams: 06/07/17 13:20 06/07/17 13:20 Lab Results 06/07/17 06/07/17 06/07/17 Range/Units 13:20 13:20 13:20 WBC 7.2 (3.8-10.6) k/uL RBC 4.63 (3.80-5.40) m/uL Hgb 13.6 (11.4-16.0) gm/dL Hct 41.5 (34.0-46.0) % MCV 89.7 (80.0-100.0) fL MCH 29.4 (25.0-35.0) pg MCHC 32.8 (31.0-37.0) g/dL RDW 12.7 (11.5-15.5) % Plt Count 318 (150-450) k/uL Neutrophils % 55 % Lymphocytes % 33 % Monocytes % 7 % Eosinophils % 2 % Basophils % 1 % Neutrophils # 3.9 (1.3-7.7) k/uL Lymphocytes # 2.4 (1.0-4.8) k/uL Monocytes # 0.5 (0-1.0) k/uL Eosinophils # 0.1 (0-0.7) k/uL Basophils # 0.1 (0-0.2) k/uL PT (9.0-12.0) sec INR (<1.2) APTT (22.0-30.0) sec Sodium 141 (137-145) mmol/L Potassium 4.7 (3.5-5.1) mmol/L Chloride 105 (98-107) mmol/L Carbon Dioxide 24 (22-30) mmol/L Anion Gap 12 mmol/L BUN 24 H (7-17) mg/dL Creatinine 1.00 (0.52-1.04) mg/dL Est GFR (MDRD) Af Amer >60 (>60 ml/min/1.73 sqM) Est GFR (MDRD) Non-Af 56 (>60 ml/min/1.73 sqM) Glucose 105 H (74-99) mg/dL Calcium 9.8 (8.4-10.2) mg/dL Magnesium 1.9 (1.6-2.3) mg/dL Total Bilirubin 0.2 (0.2-1.3) mg/dL AST 24 (14-36) U/L ALT 34 (9-52) U/L Alkaline Phosphatase 150 H (38-126) U/L Total Creatine Kinase 120 (30-135) U/L CK-MB (CK-2) 1.2 (0.0-2.4) ng/mL CK-MB (CK-2) Rel Index 1.0 Troponin I <0.012 (0.000-0.034) ng/mL Total Protein 6.9 (6.3-8.2) g/dL Albumin 4.0 (3.5-5.0) g/dL 06/07/17 Range/Units 13:20 WBC (3.8-10.6) k/uL RBC (3.80-5.40) m/uL Hgb (11.4-16.0) gm/dL Hct (34.0-46.0) % MCV (80.0-100.0) fL MCH (25.0-35.0) pg MCHC (31.0-37.0) g/dL RDW (11.5-15.5) % Plt Count (150-450) k/uL Neutrophils % % Lymphocytes % % Monocytes % % Eosinophils % % Basophils % % Neutrophils # (1.3-7.7) k/uL Lymphocytes # (1.0-4.8) k/uL Monocytes # (0-1.0) k/uL Eosinophils # (0-0.7) k/uL Basophils # (0-0.2) k/uL PT 10.0 (9.0-12.0) sec INR 1.0 (<1.2) APTT 24.2 (22.0-30.0) sec Sodium (137-145) mmol/L Potassium (3.5-5.1) mmol/L Chloride (98-107) mmol/L Carbon Dioxide (22-30) mmol/L Anion Gap mmol/L BUN (7-17) mg/dL Creatinine (0.52-1.04) mg/dL Est GFR (MDRD) Af Amer (>60 ml/min/1.73 sqM) Est GFR (MDRD) Non-Af (>60 ml/min/1.73 sqM) Glucose (74-99) mg/dL Calcium (8.4-10.2) mg/dL Magnesium (1.6-2.3) mg/dL Total Bilirubin (0.2-1.3) mg/dL AST (14-36) U/L ALT (9-52) U/L Alkaline Phosphatase (38-126) U/L Total Creatine Kinase (30-135) U/L CK-MB (CK-2) (0.0-2.4) ng/mL CK-MB (CK-2) Rel Index Troponin I (0.000-0.034) ng/mL Total Protein (6.3-8.2) g/dL Albumin (3.5-5.0) g/dL Disposition Clinical Impression: Chest pain, Atypical chest pain Disposition: HOME SELF-CARE Condition: Good Instructions: Chest Pain (ED) Referrals: Anne Marie Webb MD [Primary Care Provider] - 1-2 days
[2017-06-07 13:42] LABS: Basophils # (A) 0.1 k/uL (0-0.2); Basophils % (A) 1 %; Eosinophils # (A) 0.1 k/uL (0-0.7); Eosinophils % (A) 2 %; HCT 41.5 % (34.0-46.0); HGB 13.6 gm/dL (11.4-16.0); Lymphocytes # (A) 2.4 k/uL (1.0-4.8); Lymphocytes % (A) 33 %; MCH 29.4 pg (25.0-35.0); MCHC 32.8 g/dL (31.0-37.0); MCV 89.7 fL (80.0-100.0); Mean Platelet Volume 6.9; Monocytes # (A) 0.5 k/uL (0-1.0); Monocytes % (A) 7 %; Neutrophils # (A) 3.9 k/uL (1.3-7.7); Neutrophils % (A) 55 %; Platelet Count 318 k/uL (150-450); RBC 4.63 m/uL (3.80-5.40); RDW 12.7 % (11.5-15.5); WBC 7.2 k/uL (3.8-10.6)
[2017-06-07 13:49] LABS: ALT 34 U/L (9-52); AST 24 U/L (14-36); Alkaline Phosphatase 150 U/L (38-126); Anion Gap 12 mmol/L; Blood Urea Nitrogen 24 mg/dL (7-17); Calcium 9.8 mg/dL (8.4-10.2); Carbon Dioxide 24 mmol/L (22-30); Chloride 105 mmol/L (98-107); Glucose 105 mg/dL (74-99); Magnesium 1.9 mg/dL (1.6-2.3); Potassium 4.7 mmol/L (3.5-5.1); Sodium 141 mmol/L (137-145); Total Bilirubin 0.2 mg/dL (0.2-1.3); Total Protein 6.9 g/dL (6.3-8.2)
[2017-06-07 13:53] LABS: Partial Thromboplastin Time 24.2 sec (22.0-30.0)
[2017-06-07 14:08] LABS: Creatine Kinase 120 U/L (30-135)
[2017-06-07 14:19] LABS: Creatine Kinase MB 1.2 ng/mL (0.0-2.4); Troponin I <0.012 ng/mL (0.000-0.034)
== END 2017-06-07 14:23 | disposition home or self-care (01) ==
LOC: EC 12:57
DX: R07.89 Other chest pain (principal); I10 Essential (primary) hypertension; E07.9 Disorder of thyroid, unspecified; F32.9 Major depressive disorder, single episode, unspecified; F17.200 Nicotine dependence, unspecified, uncomplicated; Z79.899 Other long term (current) drug therapy; Z88.1 Allergy status to other antibiotic agents; Z88.5 Allergy status to narcotic agent; Z88.6 Allergy status to analgesic agent; Z88.8 Allergy status to other drugs, medicaments and biological substances; Z91.040 Latex allergy status; Z91.041 Radiographic dye allergy status; Z91.09 Other allergy status, other than to drugs and biological substances; Z87.19 Personal history of other diseases of the digestive system; Z82.49 Family history of ischemic heart disease and other diseases of the circulatory system
CPT/HCPCS: 36415; 80053; 82550; 82553; 83735; 84484; 85025; 85610; 85730; 93005; 99285

== ENCOUNTER → 2017-08-19 | Outpatient (CLI) | payer MEDICARE, OTHER ==
[2017-08-19 10:52] LABS: Basophils # (A) 0.1 k/uL (0-0.2); Basophils % (A) 1 %; Eosinophils # (A) 0.1 k/uL (0-0.7); Eosinophils % (A) 2 %; HCT 40.9 % (34.0-46.0); HGB 13.8 gm/dL (11.4-16.0); Lymphocytes # (A) 1.9 k/uL (1.0-4.8); Lymphocytes % (A) 31 %; MCH 29.6 pg (25.0-35.0); MCHC 33.7 g/dL (31.0-37.0); Mean Platelet Volume 6.7; Monocytes # (A) 0.4 k/uL (0-1.0); Monocytes % (A) 7 %; Neutrophils # (A) 3.3 k/uL (1.3-7.7); Neutrophils % (A) 56 %; Platelet Count 275 k/uL (150-450); RBC 4.64 m/uL (3.80-5.40); RDW 13.3 % (11.5-15.5); WBC 5.9 k/uL (3.8-10.6)
[2017-08-19 11:14] LABS: ALT 39 U/L (9-52); AST 27 U/L (14-36); Albumin 4.1 g/dL (3.5-5.0); Alkaline Phosphatase 121 U/L (38-126); Anion Gap 10 mmol/L; Blood Urea Nitrogen 22 mg/dL (7-17); Calcium 9.7 mg/dL (8.4-10.2); Carbon Dioxide 28 mmol/L (22-30); Chloride 104 mmol/L (98-107); Glucose 141 mg/dL (74-99); Potassium 4.8 mmol/L (3.5-5.1); Sodium 142 mmol/L (137-145); Total Bilirubin 0.3 mg/dL (0.2-1.3); Total Protein 6.6 g/dL (6.3-8.2)
[2017-08-19 13:00] LABS: T4, Free (Free Thyroxine) 0.79 ng/dL (0.78-2.19)
[2017-08-19 18:50] LABS: Hemoglobin A1C 5.8 % (4.0-6.0)
== END | disposition home or self-care (01) ==
LOC: LABWHC1 10:15
PROVIDERS: ATTEND Nurse Practitioner Family
DX: E78.5 Hyperlipidemia, unspecified (principal); M77.11 Lateral epicondylitis, right elbow; M79.601 Pain in right arm; I10 Essential (primary) hypertension
CPT/HCPCS: 36415; 80053; 82306; 83036; 84439; 84443; 85025

== ENCOUNTER → 2017-11-07 | Outpatient (CLI) | payer MEDICARE, OTHER ==
--- NOTE | 2017-11-15 21:37 | HM ---
[facility] REPORT DATE OF SERVICE: November 07, 2017. INDICATION: Palpitations. REFERRING DOCTOR: Dr. Anne Marie Webb. CLINICAL INFORMATION: The patient was monitored for 24 hours. The baseline rhythm appeared to be a sinus mechanism with a minimum heart rate of 60 beats per minute, max heart rate 126 beats per minute and average heart rate 82 beats per minute. Ventricular ectopic events were presented in less than 1% of the total beats count. The supraventricular events were present in less than 1% of total beats count as well. No evidence of sinus pauses or sinus arrest. The patient reported no symptoms. CONCLUSION: 1. Sinus rhythm as a baseline mechanism. 2. Rare ventricular ectopic events. 3. Rare supraventricular ectopic events. 4. No evidence of any sinus pause or sinus arrest. 5. No evidence of any advanced tachy or bradyarrhythmia. 6. No evidence of any advanced AV block seen. 7. The patient reported no symptoms. MMODL / IJN: [id number] /
== END | disposition home or self-care (01) ==
LOC: RADECHMAIN 12:30
PROVIDERS: ATTEND Family Medicine
DX: R00.2 Palpitations (principal); I49.9 Cardiac arrhythmia, unspecified
CPT/HCPCS: 93225; 93226

== ENCOUNTER 2018-07-23 11:51 | Inpatient (IN) | payer MEDICARE, OTHER ==
[2018-07-23] MEDS ORDERED: NITROGLYCERIN OINT 1 INCH/GM PACKET TOPICAL STA (12:07)
[2018-07-23] MEDS ORDERED: ASPIRIN 81 MG PO STA (12:07)
[2018-07-23] MEDS ORDERED: SODIUM CHLORIDE 0.9% 1,000 ML IV STA (12:07)
--- NOTE | 2018-07-23 12:09 | ED ---
General Adult HPI - General Chief complaint: Chest Pain Stated complaint: CHEST PAIN Time Seen by Provider: 07/23/18 12:02 Source: patient, RN notes reviewed Mode of arrival: EMS Limitations: no limitations - History of Present Illness Initial comments: Patient is a pleasant 62-year-old female presenting to the emergency department with chest discomfort. Onset of symptoms was this morning while bending over picking up some objects. Patient states she had discomfort in her chest which she does sometimes get from her Yarbrough's esophagitis. Patient also however had discomfort rating to her back and her jaw. Discomfort was somewhat severe. Discomfort has resolved at this point. No associated dyspnea, nausea, or diaphoresis. Patient has a difficult time describing the type of discomfort she experienced. No history of previous similar cardiac discomfort. No leg pain or leg swelling. - Related Data Home Medications Medication Instructions Recorded Confirmed Ascorbic Acid [Vitamin C] 1,000 mg PO DAILY 09/05/13 07/23/18 Ergocalciferol [Vitamin D2 50,000 unit PO MO 09/05/13 07/23/18 (DRISDOL)] Cetirizine HCl [Zyrtec] 10 mg PO DAILY PRN 06/29/15 07/23/18 Famotidine 40 mg PO DAILY 06/29/15 07/23/18 Calcium Carbonate [Tums] 500 mg PO DAILY 04/12/16 07/23/18 Magnesium Oxide 500 mg PO DAILY 04/12/16 07/23/18 amLODIPine [Norvasc] 5 mg PO BID 06/07/17 07/23/18 buPROPion HCL [Wellbutrin SR] 150 mg PO DAILY 06/07/17 07/23/18 Acetaminophen [Tylenol 8 Hour] 650 mg PO Q8H PRN 07/23/18 07/23/18 Cyanocobalamin (Vitamin B-12) 1,000 mcg PO DAILY 07/23/18 07/23/18 [Vitamin B-12] Levothyroxine Sodium [Synthroid] 50 mcg PO DAILY 07/23/18 07/23/18 Previous Rx's Medication Instructions Recorded tiZANidine HCL [Zanaflex] 2 mg PO BID PRN #60 capsule 08/16/16 Allergies Allergy/AdvReac Type Severity Reaction Status Date / Time codeine Allergy Severe Nausea & Verified 07/23/18 12:16 Vomiting cortisone Allergy Severe Swelling Verified 07/23/18 12:16 dexamethasone Allergy Severe Swelling Verified 07/23/18 12:16 Iodinated Contrast- Oral and Allergy Severe Rash/Hives Verified 07/23/18 12:16 IV Dye [Iodinated Contrast Media - Oral and] naproxen [From Naprosyn] Allergy Severe Anaphylaxis Verified 07/23/18 12:16 adhesive Allergy Intermediate Itching Verified 07/23/18 12:16 bacitracin Allergy Intermediate Swelling Verified 07/23/18 12:16 [From Neosporin ([id number])] latex Allergy Unknown Itching Verified 07/23/18 12:16 neomycin Allergy Unknown Verified 07/23/18 12:16 [From Neosporin ([id number]-[id number])] polymyxin B Allergy Unknown Verified 07/23/18 12:16 [From Neosporin ([id number])] amitriptyline HCl AdvReac Intermediate Unknown Verified 07/23/18 12:16 [From Elavil] Review of Systems ROS Statement: Those systems with pertinent positive or pertinent negative responses have been documented in the HPI. ROS Other: All systems not noted in ROS Statement are negative. Constitutional: Denies: fever Eyes: Denies: eye pain ENT: Denies: ear pain Respiratory: Denies: cough, dyspnea Cardiovascular: Reports: chest pain Endocrine: Denies: fatigue Gastrointestinal: Denies: abdominal pain Genitourinary: Denies: dysuria Musculoskeletal: Reports: as per HPI Skin: Denies: rash Neurological: Denies: weakness Past Medical History Past Medical History: Chest Pain / Angina, Diabetes Mellitus, Fibromyalgia, Hypertension, Mitral Valve Prolapse (MVP), Osteoarthritis (OA), Thyroid Disorder Additional Past Medical History / Comment(s): hiatal hernia, barretts esopagus, mauricio barre. [facility] NEUROMA. degenerative disc disease, osteoperosis History of Any Multi-Drug Resistant Organisms: None Reported Past Surgical History: Section, Hysterectomy, Tonsillectomy Additional Past Surgical History / Comment(s): lap eye surg Past Anesthesia/Blood Transfusion Reactions: No Reported Reaction Past Psychological History: Depression Smoking Status: Light tobacco smoker Past Alcohol Use History: None Reported, Rare Past Drug Use History: None Reported - Past Family History Father Family Medical History: Congestive Heart Failure (CHF) General Exam Limitations: no limitations General appearance: alert, in no apparent distress Head exam: Present: atraumatic Eye exam: Present: normal appearance, PERRL ENT exam: Present: normal oropharynx Neck exam: Present: normal inspection Respiratory exam: Present: normal lung sounds bilaterally. Absent: chest wall tenderness Cardiovascular Exam: Present: regular rate, normal rhythm Expanded Peripheral pulses: 2+: Radial (R), Radial (L), Posterior Tibialis (R), Posterior Tibialis (L), Dorsalis Pedis (R), Dorsalis Pedis (L) GI/Abdominal exam: Present: soft. Absent: distended, tenderness Extremities exam: Present: normal inspection. Absent: pedal edema, calf tenderness Neurological exam: Present: alert Psychiatric exam: Present: normal affect, normal mood Skin exam: Present: normal color Course Vital Signs 07/23/18 07/23/18 07/23/18 11:58 12:10 12:58 Temperature 97.7 F Pulse Rate 77 74 Respiratory 18 18 18 Rate Blood Pressure 189/89 181/90 O2 Sat by Pulse 98 Oximetry EKG Findings - EKG Comments: EKG Findings:: Normal sinus rhythm 73. VT 168. QRS 106. QT 394. QTC 434. Normal axis. Normal QRS. No acute ST change. Medical Decision Making - Medical Decision Making Patient reevaluated and resting comfortably in bed, symptom-free at this time. Patient is updated on results and plan. Case was discussed in detail with Dr. Orellana, who will admit covering for Dr. Dania Orellana. - Lab Data Result diagrams: 07/23/18 12:09 07/23/18 12:09 Lab Results 07/23/18 07/23/18 07/23/18 Range/Units 12:09 12:09 12:09 WBC 7.8 (3.8-10.6) k/uL RBC 4.82 (3.80-5.40) m/uL Hgb 14.6 (11.4-16.0) gm/dL Hct 43.6 (34.0-46.0) % MCV 90.4 (80.0-100.0) fL MCH 30.3 (25.0-35.0) pg MCHC 33.5 (31.0-37.0) g/dL RDW 13.9 (11.5-15.5) % Plt Count 299 (150-450) k/uL Neutrophils % 60 % Lymphocytes % 27 % Monocytes % 7 % Eosinophils % 3 % Basophils % 1 % Neutrophils # 4.7 (1.3-7.7) k/uL Lymphocytes # 2.1 (1.0-4.8) k/uL Monocytes # 0.6 (0-1.0) k/uL Eosinophils # 0.2 (0-0.7) k/uL Basophils # 0.1 (0-0.2) k/uL PT (9.0-12.0) sec INR (<1.2) APTT (22.0-30.0) sec D-Dimer (<0.60) mg/L FEU Sodium 139 (137-145) mmol/L Potassium 4.5 (3.5-5.1) mmol/L Chloride 105 (98-107) mmol/L Carbon Dioxide 24 (22-30) mmol/L Anion Gap 10 mmol/L BUN 21 H (7-17) mg/dL Creatinine 0.73 (0.52-1.04) mg/dL Est GFR (CKD-EPI)AfAm >90 (>60 ml/min/1.73 sqM) Est GFR (CKD-EPI)NonAf 89 (>60 ml/min/1.73 sqM) Glucose 175 H (74-99) mg/dL Calcium 10.3 H (8.4-10.2) mg/dL Magnesium 2.0 (1.6-2.3) mg/dL Total Bilirubin 0.4 (0.2-1.3) mg/dL AST 29 (14-36) U/L ALT 42 (9-52) U/L Alkaline Phosphatase 127 H (38-126) U/L Troponin I <0.012 (0.000-0.034) ng/mL Total Protein 7.1 (6.3-8.2) g/dL Albumin 4.5 (3.5-5.0) g/dL 07/23/18 Range/Units 13:24 WBC (3.8-10.6) k/uL RBC (3.80-5.40) m/uL Hgb (11.4-16.0) gm/dL Hct (34.0-46.0) % MCV (80.0-100.0) fL MCH (25.0-35.0) pg MCHC (31.0-37.0) g/dL RDW (11.5-15.5) % Plt Count (150-450) k/uL Neutrophils % % Lymphocytes % % Monocytes % % Eosinophils % % Basophils % % Neutrophils # (1.3-7.7) k/uL Lymphocytes # (1.0-4.8) k/uL Monocytes # (0-1.0) k/uL Eosinophils # (0-0.7) k/uL Basophils # (0-0.2) k/uL PT 9.8 (9.0-12.0) sec INR 0.9 (<1.2) APTT 25.2 (22.0-30.0) sec D-Dimer 0.44 (<0.60) mg/L FEU Sodium (137-145) mmol/L Potassium (3.5-5.1) mmol/L Chloride (98-107) mmol/L Carbon Dioxide (22-30) mmol/L Anion Gap mmol/L BUN (7-17) mg/dL Creatinine (0.52-1.04) mg/dL Est GFR (CKD-EPI)AfAm (>60 ml/min/1.73 sqM) Est GFR (CKD-EPI)NonAf (>60 ml/min/1.73 sqM) Glucose (74-99) mg/dL Calcium (8.4-10.2) mg/dL Magnesium (1.6-2.3) mg/dL Total Bilirubin (0.2-1.3) mg/dL AST (14-36) U/L ALT (9-52) U/L Alkaline Phosphatase (38-126) U/L Troponin I (0.000-0.034) ng/mL Total Protein (6.3-8.2) g/dL Albumin (3.5-5.0) g/dL - Radiology Data Radiology results: image reviewed (X-ray shows no acute process) Disposition Clinical Impression: Chest pain Disposition: ADMITTED IP TO THIS [facility] Is patient prescribed a controlled substance at d/c from ED?: No Referrals: Anne Marie Webb MD [Primary Care Provider] - 1-2 days Decision Time: 14:18
[2018-07-23 12:32] LABS: Basophils # (A) 0.1 k/uL (0-0.2); Basophils % (A) 1 %; Eosinophils # (A) 0.2 k/uL (0-0.7); Eosinophils % (A) 3 %; HCT 43.6 % (34.0-46.0); HGB 14.6 gm/dL (11.4-16.0); Lymphocytes # (A) 2.1 k/uL (1.0-4.8); Lymphocytes % (A) 27 %; MCH 30.3 pg (25.0-35.0); MCHC 33.5 g/dL (31.0-37.0); MCV 90.4 fL (80.0-100.0); Mean Platelet Volume 7.7; Monocytes # (A) 0.6 k/uL (0-1.0); Monocytes % (A) 7 %; Neutrophils # (A) 4.7 k/uL (1.3-7.7); Neutrophils % (A) 60 %; Platelet Count 299 k/uL (150-450); RBC 4.82 m/uL (3.80-5.40); RDW 13.9 % (11.5-15.5); WBC 7.8 k/uL (3.8-10.6)
[2018-07-23 12:40] LABS: ALT 42 U/L (9-52); AST 29 U/L (14-36); Albumin 4.5 g/dL (3.5-5.0); Alkaline Phosphatase 127 U/L (38-126); Anion Gap 10 mmol/L; Blood Urea Nitrogen 21 mg/dL (7-17); Calcium 10.3 mg/dL (8.4-10.2); Carbon Dioxide 24 mmol/L (22-30); Chloride 105 mmol/L (98-107); Glucose 175 mg/dL (74-99); Potassium 4.5 mmol/L (3.5-5.1); Sodium 139 mmol/L (137-145); Total Bilirubin 0.4 mg/dL (0.2-1.3); Total Protein 7.1 g/dL (6.3-8.2)
--- NOTE | 2018-07-23 14:00 | XR ---
EXAMINATION TYPE: XR chest 2V DATE OF EXAM: 07/23/2018 HISTORY: Chest Pain. REFERENCE: Previous study dated 06/03/2016. FINDINGS: The lungs are clear. Pleural space are clear. Heart size is within normal limits. IMPRESSION: NO ACUTE CARDIOTHORACIC ABNORMALITY.
[2018-07-23 14:02] LABS: D-Dimer 0.44 mg/L FEU (<0.60); INR 0.9 (<1.2); Partial Thromboplastin Time 25.2 sec (22.0-30.0); Prothrombin Time 9.8 sec (9.0-12.0)
[2018-07-23] MEDS ORDERED: NITROGLYCERIN SL TABS 0.4 MG TAB SUBLINGUAL PRN (14:23)
[2018-07-23] MEDS ORDERED: LORATADINE 10 MG TAB PO PRN (14:53)
[2018-07-23] MEDS ORDERED: ACETAMINOPHEN TAB 325 MG TAB PO PRN (14:53)
[2018-07-23] MEDS ORDERED: TEMAZEPAM 15 MG CAP PO PRN (14:54)
[2018-07-23 17:42] VITALS: BMI 45.0
--- NOTE | 2018-07-23 19:21 | HP ---
HISTORY AND PHYSICAL CHIEF COMPLAINTS: Chest pain. HISTORY OF PRESENT ILLNESS: This 62-year-old woman with a past medical history of multiple medical problems including chest pain, history of diabetes, fibromyalgia, hypertension, mitral prolapse, being followed by Dr. Anne Marie Webb and Jackelyn Donis. Patient presents complaining of chest pain. Initially the patient had pain in the epigastrium which was going upwards and felt as a pressure in the chest and also radiated to the back and as well as joint. Patient came to [facility] and was admitted for further evaluation and treatment. There is no history of fever, rigors. No headache, loss of consciousness, seizures. The initial onset of pain was patient as patient also has history of gastroesophageal reflux disease. Patient apparently ate some yogurt and bending down to case picker something. There is no history of fever, rigors. No history of headache, loss of consciousness, seizures. PAST MEDICAL HISTORY: Chest pain, angina, diabetes, fibromyalgia, hypertension, mitral prolapse, history of hiatal hernia. MEDICATIONS: Prior to admission include home medications are: 1. Zanaflex 2 mg p.o. b.i.d. p.r.n. 2. Wellbutrin SR 150 mg p.o. daily. 3. Norvasc 5 mg p.o. b.i.d. 4. Magnesium oxide 500 mg p.o. 5. Synthroid 150 mcg p.o. daily. 6. Famotidine 40 mg p.o. daily. 7. Vitamin D2 50,000 p.o. Tuesday. 8. Vitamin D 2000 mcg p.o. daily. 9. Zyrtec 10 mg p.o. daily p.r.n. 10.Tums 500 mg p.o. daily. 11.Vitamin C 1000 mg p.o. daily. 12.Tylenol q.6 p.r.n. ALLERGIES: 1. CODEINE. 2. CORTISONE. 3. IODINATED CONTRAST. 5. BACITRACIN. 6. LATEX. 7. NEOMYCIN. 8. POLYMYXIN. 9. AMITRIPTYLINE. FAMILY HISTORY: History of CHF in the family. SOCIAL HISTORY: History of smoking on daily basis. No history of alcohol intake. REVIEW OF SYSTEMS: ENT: No diminished vision or hearing. CARDIOVASCULAR: As mentioned earlier. RESPIRATORY: As mentioned. GI: No nausea. : No dysuria. NERVOUS SYSTEM: No numbness. ALLERGY/IMMUNOLOGY: No asthma or hayfever. MUSCULOSKELETAL: As mentioned earlier. HEMATOLOGY: No history of anemia. ENDOCRINE: No history of diabetes or hypothyroidism. CONSTITUTIONAL: As mentioned. DERMATOLOGY: Negative. RHEUMATOLOGY: Negative. PSYCHIATRY: As mentioned earlier. PHYSICAL EXAMINATION: Alert and oriented x3. Pulse 73, blood pressure 170/91, respiration 18, temperature is 97.8, pulse ox 98% on room air. HEENT: Conjunctivae normal. NECK: No jugular venous distention. CARDIOVASCULAR: S1, S2 muffled. RESPIRATORY: Breath sounds diminished in the bases. Scattered rhonchi and crackles. ABDOMEN: Soft, nontender. No mass palpable. No hepatosplenomegaly. LEGS: No edema. NERVOUS SYSTEM: Higher function mentioned earlier. Moves all four limbs. No focal deficits. LYMPHATICS: No lymphadenopathy in the neck, axillae, groin. SKIN: No ulcer, rash. JOINTS: No active deforming arthropathy. LABS: WBC 7.2, hemoglobin 14.6, PT/INR and D-dimer ntd, sodium 128, potassium 4.5. ASSESSMENT: 1. Chest pain possible unstable angina. 2. Diabetes mellitus type 2. 3. History of fibromyalgia. 4. Hypertension. 5. History of mitral valve prolapse. 6. Nicotine dependence. 7. History of degenerative joint disease. 8. Hypothyroidism. 9. History of hiatal hernia. 10.History of Yarbrough's esophagus. 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 12.Depression. 13.History of nicotine dependence, continued ongoing. RECOMMENDATIONS AND DISCUSSION: This 62-year-old woman who presented with multiple complex medical issues, monitor the patient closely. Continue the current management and symptomatic treatment. Rule out myocardial infarction. Cardiology consultations. Angina protocol. Symptomatic treatment. Resume the home medications. Prognosis guarded because of multiple complex medical issues. Copy of dictation being forwarded to Dr. Anne Marie Webb, who is the primary physician. MMODL / IJN: [id number] / [id number]
[2018-07-23] MEDS: amLODIPine 5 MG TAB PO SCH (21:24)
[2018-07-23] MEDS: NITROGLYCERIN OINT 1 INCH/GM PACKET TOPICAL SCH ×2 (21:24→23:18)
[2018-07-23] MEDS: ALPRAZolam 0.25 MG TAB PO PRN (21:27)
[2018-07-23] MEDS ORDERED: MAGNESIUM OXIDE 400 MG TAB PO SCH (21:30)
[2018-07-23] MEDS ORDERED: CALCIUM CARBONATE 500 MG CHEWABLE PO SCH (21:45)
[2018-07-23] MEDS ORDERED: CALCIUM CARBONATE 500 MG CHEWABLE PO ONE (22:18)
[2018-07-23] MEDS ORDERED: MAGNESIUM OXIDE 400 MG TAB PO ONE (22:19)
[2018-07-23] MEDS ORDERED: FLUTICASONE 50MCG/SPRAY NASAL 16GM EA NOSTRIL PRN (23:12)
[2018-07-24] MEDS: NITROGLYCERIN OINT 1 INCH/GM PACKET TOPICAL SCH (06:19)
[2018-07-24] MEDS ORDERED: LEVOTHYROXINE 50 MCG TAB PO SCH (06:30)
[2018-07-24 07:03] LABS: Basophils # (A) 0.1 k/uL (0-0.2); Basophils % (A) 1 %; Eosinophils # (A) 0.2 k/uL (0-0.7); Eosinophils % (A) 3 %; HGB 13.3 gm/dL (11.4-16.0); Lymphocytes # (A) 2.3 k/uL (1.0-4.8); Lymphocytes % (A) 36 %; MCH 30.5 pg (25.0-35.0); MCHC 33.3 g/dL (31.0-37.0); MCV 91.5 fL (80.0-100.0); Mean Platelet Volume 7.1; Monocytes # (A) 0.5 k/uL (0-1.0); Monocytes % (A) 8 %; Neutrophils # (A) 3.2 k/uL (1.3-7.7); Neutrophils % (A) 50 %; Platelet Count 241 k/uL (150-450); RBC 4.37 m/uL (3.80-5.40); RDW 13.3 % (11.5-15.5); WBC 6.4 k/uL (3.8-10.6)
[2018-07-24 07:14] LABS: Anion Gap 6 mmol/L; Blood Urea Nitrogen 24 mg/dL (7-17); Calcium 9.8 mg/dL (8.4-10.2); Carbon Dioxide 25 mmol/L (22-30); Chloride 108 mmol/L (98-107); Cholesterol 235 mg/dL (<200); Glucose 140 mg/dL (74-99); HDL Cholesterol 41 mg/dL (40-60); LDL Cholesterol,Calculated 152 mg/dL (0-99); Potassium 4.8 mmol/L (3.5-5.1); Sodium 139 mmol/L (137-145); Triglycerides 211 mg/dL (<150)
[2018-07-24] MEDS ORDERED: PANTOPRAZOLE 40 MG TABLET PO SCH (07:30)
[2018-07-24] MEDS ORDERED: DIPYRIDAMOLE IV ONE (08:26)
[2018-07-24] MEDS ORDERED: CAFFEINE CITRATE 60 MG/3 ML VIAL IV PRN (08:26)
[2018-07-24] MEDS ORDERED: SODIUM CHLORIDE 0.9% IV ONE (08:26)
[2018-07-24] MEDS ORDERED: AMINOPHYLLINE 500 MG/20 ML VIAL IV PRN (08:26)
[2018-07-24] MEDS: amLODIPine 5 MG TAB PO SCH (08:41)
[2018-07-24] MEDS ORDERED: FAMOTIDINE 20 MG TAB PO SCH (09:00)
[2018-07-24] MEDS ORDERED: CYANOCOBALAMIN 500 MCG TAB PO SCH (09:00)
[2018-07-24] MEDS ORDERED: NICOTINE 14MG/24HR PATCH TRANSDERM SCH (09:00)
[2018-07-24] MEDS ORDERED: buPROPion SR 150 MG TABLET.ER PO SCH (09:00)
[2018-07-24] MEDS ORDERED: ASCORBIC ACID 500 MG TAB PO SCH (09:00)
[2018-07-24] MEDS ORDERED: MAGNESIUM OXIDE 400 MG TAB PO SCH ×2 (09:00→21:00)
[2018-07-24] MEDS ORDERED: ASPIRIN 325 MG TAB PO SCH (09:00)
[2018-07-24] MEDS ORDERED: METOPROLOL TARTRATE 25 MG TAB PO SCH ×2 (09:00)
[2018-07-24] MEDS ORDERED: ERGOCALCIFEROL 50,000 UNIT CAP PO SCH (09:00)
[2018-07-24] MEDS ORDERED: CALCIUM CARBONATE 500 MG CHEWABLE PO SCH ×2 (09:00→21:00)
[2018-07-24] MEDS ORDERED: ASPIRIN 81 MG PO SCH (09:00)
[2018-07-24 09:47] LABS: Hemoglobin A1C 7.6 % (4.0-6.0)
--- NOTE | 2018-07-24 10:10 | P.CRDCN ---
History of Present Illness History of present illness: This is a pleasant 62-year-old female past medical history significant for hypertension, diabetes mellitus, chronic nicotine dependence and fibromyalgia. She denies history of coronary artery disease and does not follow with a alemite operator for any reason. She states her father had a heart attack and stent placement at the age 44. We've been asked to see her in consultation secondary to chest discomfort. She states yesterday she was at home she just finished eating yogurt and was in the house walking around picking up different items from the forearm place and the minimum box when she started feeling an intense pressure in the middle of her chest that radiated through to her shoulder blades and up to her jaw. She states she has felt discomfort in her chest previously in the past. She has a history of Yarbrough's esophagus along with gastroesophageal reflux disease however she does not typically have any radiation to the back or jaw when she has an exacerbation of reflux. She took an aspirin at home and her symptoms did seem to improve. By the time she arrived at the emergency department her pain had completely subsided. She said she did have another episode of discomfort in her chest last night while laying in bed. This time there is no radiation to the back or jaw. She denies associated shortness of breath, dizziness, nausea, vomiting, palpitations or diaphoresis. EKG reveals sinus mechanism with no acute ST or T wave abnormalities noted. Chest x-ray is negative for an acute cardiopulmonary process. Laboratory data reviewed, WBC 6.4, hemoglobin 13, platelets 241, d-dimer 0.44, sodium 139, potassium 4.8, creatinine 0.73, magnesium 2.0, cardiac enzymes negative 3, LDL 152, HDL 41. She states she has tried up to 3 different statin medications and is unable to tolerate secondary to body aches. Most recent echocardiogram obtained in 2016 reveals preserved left ventricular systolic function with ejection fraction 50-55%, mild MR, mild TR and mild aortic valve sclerosis with no stenosis. At the time of my exam: CONSTITUTIONAL: Denies fever. Denies chills. EYES: Denies blurred vision. Denies vision changes. Denies eye pain. EARS, NOSE, MOUTH & THROAT: Denies headache. Denies sore throat. Denies ear pain. CARDIOVASCULAR: Denies chest pain. Denies shortness of breath. Denies orthopnea. Denies PND. Denies palpitations. RESPIRATORY: Denies cough. GASTROINTESTINAL: Denies abdominal pain. Denies diarrhea. Denies constipation. Denies nausea. Denies vomiting. MUSCULOSKELETAL: Denies myalgias. INTEGUMENTARY: Denies pruitis. Denies rash. NEUROLOGIC: Denies numbness. Denies tingling. Denies weakness. PSYCHIATRIC: Denies anxiety. Denies depression. ENDOCRINE: Denies fatigue. Denies weight change. Denies polydipsia. Denies polyurina. GENITOURINARY: Denies burning, hematuria or urgency with micturation. HEMATOLOGIC: Denies history of anemia. Denies bleeding. Blood pressure 142/77 heart rate 69 afebrile maintaining oxygen saturation on room air GENERAL: This is a 62-year-old female in no apparent distress at the time of my examination. Obese. HEENT: Head is atraumatic, normocephalic. Pupils are equal, round. Sclerae ani cteric. Conjunctivae are clear. Mucous membranes of the mouth are moist. Neck is supple. There is no jugular venous distention. No carotid bruit is heard. LUNGS: Clear to auscultation no wheezes, rales or rhonchi. No chest wall tenderness is noted on palpation or with deep breathing. HEART: Regular rate and rhythm with systolic ejection murmur at the base, no rubs or gallops. S1 and S2 heard. ABDOMEN: Soft, nontender. Bowel sounds are heard. No organomegaly noted. EXTREMITIES: No evidence of peripheral edema and no calf tenderness noted. VASCULAR: Radial and dorsalis pedis pulses palpated, no evidence of clubbing. NEUROLOGIC: Patient is awake, alert and oriented x3. ASSESSMENT Chest pain, an acute coronary event has been ruled out. Hypertension, pt states she thought she was only to be taking her amlodipine daily instead of BID. Dyslipidemia, intolerant to statins with no intention of trying anything further at this point. Diabetes mellitus, diet controlled Chronic nicotine dependence Yarbrough's esophagus Gastroesophageal reflux disease Morbid obestiy, BMI 45 PLAN An acute coronary event has been ruled out. Discontinue nitropaste. Obtain 2D echocardiogram and doppler study to assess cardiac structure and function. Perform Persantine stress test to assess for reversible cardiac ischemia. Advised her that her cholesterol profile is concerning however she has been intolerant to statins in the past and has no intention of trying any further medications. Dosing of amlodipine should be BID rather than daily and she has been advised of this. Initiate on lopressor 25 mg daily. Smoking cessation recommended along with diet and exercise for weight loss. Thank you kindly for this consultation. Nurse Practitioner note has been reviewed, I agree with a documented findings and plan of care. Patient was seen and examined. Past Medical History Past Medical History: Chest Pain / Angina, Diabetes Mellitus, Fibromyalgia, Hypertension, Mitral Valve Prolapse (MVP), Osteoarthritis (OA), Thyroid Disorder Additional Past Medical History / Comment(s): hiatal hernia, barretts esopagus, mauricio barre. [facility]. degenerative disc disease, osteoperosis History of Any Multi-Drug Resistant Organisms: None Reported Past Surgical History: Section, Hysterectomy, Tonsillectomy Additional Past Surgical History / Comment(s): lap eye surg Past Anesthesia/Blood Transfusion Reactions: No Reported Reaction Past Psychological History: Depression Smoking Status: Current some day smoker Past Alcohol Use History: None Reported, Rare Additional Past Alcohol Use History / Comment(s): pt. 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, has been sober for 5 years Past Drug Use History: None Reported - Past Family History Father Family Medical History: Congestive Heart Failure (CHF) Medications and Allergies Home Medications Medication Instructions Recorded Confirmed Type Ascorbic Acid [Vitamin C] 1,000 mg PO DAILY 09/05/13 07/23/18 History Ergocalciferol [Vitamin D2 50,000 unit PO MO 09/05/13 07/23/18 History (DRISDOL)] Cetirizine HCl [Zyrtec] 10 mg PO DAILY PRN 06/29/15 07/23/18 History Famotidine 40 mg PO DAILY 06/29/15 07/23/18 History Calcium Carbonate [Tums] 500 mg PO DAILY 04/12/16 07/23/18 History Magnesium Oxide 500 mg PO DAILY 04/12/16 07/23/18 History tiZANidine HCL [Zanaflex] 2 mg PO BID PRN #60 capsule 08/16/16 07/23/18 Rx amLODIPine [Norvasc] 5 mg PO BID 06/07/17 07/23/18 History buPROPion HCL [Wellbutrin SR] 150 mg PO DAILY 06/07/17 07/23/18 History Acetaminophen [Tylenol 8 Hour] 650 mg PO Q8H PRN 07/23/18 07/23/18 History Cyanocobalamin (Vitamin B-12) 1,000 mcg PO DAILY 07/23/18 07/23/18 History [Vitamin B-12] Levothyroxine Sodium [Synthroid] 50 mcg PO DAILY 07/23/18 07/23/18 History Allergies Allergy/AdvReac Type Severity Reaction Status Date / Time codeine Allergy Severe Nausea & Verified 07/23/18 12:16 Vomiting cortisone Allergy Severe Swelling Verified 07/23/18 12:16 dexamethasone Allergy Severe Swelling Verified 07/23/18 12:16 Iodinated Contrast- Oral and Allergy Severe Rash/Hives Verified 07/23/18 12:16 IV Dye [Iodinated Contrast Media - Oral and] naproxen [From Naprosyn] Allergy Severe Anaphylaxis Verified 07/23/18 12:16 adhesive Allergy Intermediate Itching Verified 07/23/18 12:16 bacitracin Allergy Intermediate Swelling Verified 07/23/18 12:16 [From Neosporin ([id number])] latex Allergy Unknown Itching Verified 07/23/18 12:16 neomycin Allergy Unknown Verified 07/23/18 12:16 [From Neosporin ([id number])] polymyxin B Allergy Unknown Verified 07/23/18 12:16 [From Neosporin ([id number])] amitriptyline HCl AdvReac Intermediate Unknown Verified 07/23/18 12:16 [From Elavil] Physical Exam Vitals: Vital Signs Temp Pulse Pulse Pulse Resp BP BP 07/24/18 06:59 97.7 F 69 16 142/77 07/24/18 04:00 97.5 F L 67 15 146/84 07/24/18 03:55 15 07/23/18 23:21 98.1 F 76 15 142/81 07/23/18 23:20 15 07/23/18 20:00 15 07/23/18 18:53 98.1 F 76 15 127/74 07/23/18 18:00 07/23/18 17:04 97.8 F 72 18 179/91 07/23/18 16:00 97.9 F 77 18 174/84 07/23/18 14:33 77 18 165/95 07/23/18 12:58 74 18 181/90 07/23/18 12:10 18 04/14/19 11:58 97.7 F 77 18 189/89 Pulse Ox 07/24/18 06:59 94 L 07/24/18 04:00 98 07/24/18 03:55 07/23/18 23:21 96 07/23/18 23:20 07/23/18 20:00 07/23/18 18:53 96 07/23/18 18:00 98 07/23/18 17:04 96 07/23/18 16:00 97 07/23/18 14:33 97 07/23/18 12:58 98 07/23/18 12:10 07/23/18 11:58 Intake and Output 07/23/18 07/24/18 07/24/18 22:59 06:59 14:59 Intake Total 200 Balance 200 Intake: Amount of Fluid Infused ( 200 ml) Other: Voiding Method Toilet Toilet # Voids 2 1 Results 07/24/18 06:42 07/24/18 06:42 Cardiac Enzymes 07/23/18 07/23/18 07/23/18 Range/Units 12:09 12:09 17:54 AST 29 (14-36) U/L Troponin I <0.012 <0.012 (0.000-0.034) ng/mL 07/24/18 Range/Units 00:10 AST (14-36) U/L Troponin I <0.012 (0.000-0.034) ng/mL Coagulation 07/23/18 Range/Units 13:24 PT 9.8 (9.0-12.0) sec APTT 25.2 (22.0-30.0) sec Lipids 07/24/18 Range/Units 06:42 Triglycerides 211 H (<150) mg/dL Cholesterol 235 H (<200) mg/dL HDL Cholesterol 41 (40-60) mg/dL CBC 07/23/18 07/24/18 Range/Units 12:09 06:42 WBC 7.8 6.4 (3.8-10.6) k/uL RBC 4.82 4.37 (3.80-5.40) m/uL Hgb 14.6 13.3 (11.4-16.0) gm/dL Hct 43.6 40.0 (34.0-46.0) % Plt Count 299 241 (150-450) k/uL Comprehensive Metabolic Panel 07/23/18 07/24/18 Range/Units 12:09 06:42 Sodium 139 139 (137-145) mmol/L Potassium 4.5 4.8 (3.5-5.1) mmol/L Chloride 105 108 H (98-107) mmol/L Carbon Dioxide 24 25 (22-30) mmol/L BUN 21 H 24 H (7-17) mg/dL Creatinine 0.73 0.73 (0.52-1.04) mg/dL Glucose 175 H 140 H (74-99) mg/dL Calcium 10.3 H 9.8 (8.4-10.2) mg/dL AST 29 (14-36) U/L ALT 42 (9-52) U/L Alkaline Phosphatase 127 H (38-126) U/L Total Protein 7.1 (6.3-8.2) g/dL Albumin 4.5 (3.5-5.0) g/dL Current Medications Generic Name Dose Route Start Last Admin Trade Name Freq PRN Reason Stop Dose Admin Acetaminophen 650 mg 07/23/18 14:53 Tylenol Tab PO Q8H PRN Mild Pain Alprazolam 0.25 mg 07/23/18 14:54 07/23/18 21:27 Xanax PO 0.25 mg TID PRN Administration Anxiety Amlodipine Besylate 5 mg 07/23/18 21:00 07/23/18 21:24 Norvasc PO 5 mg BID KEELY Administration Ascorbic Acid 1,000 mg 07/24/18 09:00 Vitamin C PO DAILY KEELY Aspirin 325 mg 07/24/18 09:00 Aspirin PO DAILY KEELY Bupropion HCl 150 mg 07/24/18 09:00 Wellbutrin Sr PO DAILY KEELY Calcium Carbonate/Glycine 1,000 mg 07/24/18 21:00 Tums PO HS [facility] Cyanocobalamin 1,000 mcg 07/24/18 09:00 Vitamin B-12 PO DAILY [facility] Ergocalciferol 50,000 unit 07/24/18 09:00 Vitamin D2 PO MO KEELY Famotidine 40 mg 07/24/18 09:00 Pepcid PO DAILY [facility] Fluticasone Propionate 2 spray 07/23/18 23:12 07/23/18 23:26 Flonase Nasal Runge EA NOSTRIL 2 spray DAILY PRN Administration Allergy Symptoms Levothyroxine Sodium 50 mcg 07/24/18 06:30 07/24/18 06:46 Synthroid PO 50 mcg DAILY@0630 [facility] Administration Loratadine 10 mg 07/23/18 14:53 Claritin PO DAILY PRN ALLERGIES Magnesium Oxide 400 mg 07/24/18 21:00 Mag-Ox PO HS [facility] Nicotine 1 patch 07/24/18 09:00 Habitrol 14mg/24hr Patch TRANSDERM DAILY [facility] Nitroglycerin 1 inch 07/23/18 18:00 07/24/18 06:19 Nitro-Bid Oint TOPICAL Not Given Q6HR [facility] Nitroglycerin 0.4 mg 07/23/18 14:23 Nitrostat SUBLINGUAL Q5M PRN Chest Pain Pantoprazole Sodium 40 mg 07/24/18 07:30 Protonix PO AC-BRKFST [facility] Temazepam 15 mg 07/23/18 14:54 Restoril PO HS PRN Insomnia Tizanidine HCl 2 mg 07/23/18 14:53 Zanaflex PO BID PRN Muscle Spasm Intake and Output 07/23/18 07/24/18 07/24/18 22:59 06:59 14:59 Intake Total 200 Balance 200 Intake: Amount of Fluid Infused ( 200 ml) Other: Voiding Method Toilet Toilet # Voids 2 1 07/24/18 06:42 07/24/18 06:42
[2018-07-24] MEDS ORDERED: AMINOPHYLLINE 250 MG/10 ML VIAL IV ONE (11:45)
[2018-07-24 13:01] VITALS: BP 142/94; PULSE 88; RESP 18; TEMP 98.3
--- NOTE | 2018-07-24 13:24 | ECHOF ---
Referral Reason:cp MEASUREMENTS -------- HEIGHT: 157.5 cm WEIGHT: 111.6 kg BP: RVIDd: 2.4 cm (< 3.3) IVSd: 0.6 cm (0.6 - 1.1) LVIDd: 1.4 cm (3.9 - 5.3) LVPWd: 5.3 cm (0.6 - 1.1) IVSs: 1.5 cm LVIDs: 4.0 cm LVPWs: 1.8 cm LA Diam: 3.2 cm (2.7 - 3.8) Ao Diam: 3.0 cm (2.0 - 3.7) AV Cusp: 1.6 cm (1.5 - 2.6) LA Diam: 3.6 cm (2.7 - 3.8) MV EXCURSION: 14.603 mm (> 18.000) MV EF SLOPE: 44 mm/s (70 - 150) EPSS: 1.6 cm MV E Young: 0.61 m/s MV DecT: 208 ms MV A Young: 0.87 m/s MV E/A Ratio: 0.71 RAP: 5.00 mmHg RVSP: 15.84 mmHg FINDINGS -------- Sinus rhythm. This was a technically adequate study. Morbid Obesity The left ventricular size is normal. There is mild concentric left ventricular hypertrophy. Overa ll left ventricular systolic function is normal with, an EF between 55 - 60 %. The right ventricle is normal in size. The left atrial size is normal. The right atrial size is normal. The aortic valve is trileaflet, and appears structurally normal. No aortic stenosis or regurgitation. Mild mitral annular calcification present. Mild mitral regurgitation is present. Mild tricuspid regurgitation present. There is no evidence of pulmonary hypertension. The right v entricular systolic pressure, as measured by Doppler, is 15.84mmHg. There is no pulmonic regurgitation present. The aortic root size is normal. There is no pericardial effusion. CONCLUSIONS -------- 1. The left ventricular size is normal. 2. There is mild concentric left ventricular hypertrophy. 3. Overall left ventricular systolic function is normal with, an EF between 55 - 60 %. 4. The right ventricle is normal in size. 5. The left atrial size is normal. 6. The right atrial size is normal. 7. The aortic valve is trileaflet, and appears structurally normal. No aortic stenosis or regurgitati on. 8. Mild mitral annular calcification present. 9. Mild mitral regurgitation is present. 10. Mild tricuspid regurgitation present. 11. There is no evidence of pulmonary hypertension. 12. The right ventricular systolic pressure, as measured by Doppler, is 15.84mmHg. 13. There is no pulmonic regurgitation present. 14. The aortic root size is normal. 15. There is no pericardial effusion. SCIENCES DEAN: Lani Boateng RDCS
--- NOTE | 2018-07-24 13:43 | NM ---
EXAMINATION TYPE: NM stress persantine cardiolite DATE OF EXAM: 07/24/2018 COMPARISON: NONE HISTORY: 62-year-old female with chest pain, palpitations, hypertension, diabetes, family history, 12 pack-year history of smoking. TECHNIQUE: After the intravenous administration of 9.6 mCi Tc 99m Sestamibi - Cardiolite resting SPE CT images acquired 50 minutes post injection. 52 The patient received 63.5 mg Persantine, 25.5 mCi Tc 99m Sestamibi - Stress images obtained 35 min utes post injection FINDINGS: Review of stress and rest SPECT images demonstrates decreased stress related perfusion along the infe rior apical wall. No distinct perfusion abnormality. Gated analysis shows normal wall motion with an estimated left ventricular ejection fraction of 52 %. TID is calculated at 1.18, upper limits of nor mal. IMPRESSION: Findings suggest a small area of reversibility along the inferior apical wall. Estimated LVEF is slig htly diminished at 52%. TID (1.18) is at the upper limits of normal.
[2018-07-24] MEDS: ALPRAZolam 0.25 MG TAB PO PRN (14:00)
[2018-07-24] MEDS ORDERED: ATORVASTATIN 80 MG TAB PO STA (14:20)
--- NOTE | 2018-07-24 14:44 | P.PN ---
Progress Note - Text Persantine stress test reveals a small area of reversibility along the inferior- apical wall. This has been discussed with the patient in great detail. We have recommended proceeding with cardiac catheterization to further assess the coronary arteries for blockage/disease. I have discussed the risks, benefits and alternative therapies for the above-mentioned procedure and for both sedation/analgesia as well as necessary blood product administration, if indicated, as they pertain to this patient. The patient has indicated understanding and acceptance of the risks and procedures discussed. Questions have been answered appropriately. She has some concerns about her dog being home alone tonight and is attempting to reach out to family for assistance. Case has been tentatively boarded for tomorrow at noontime. Further recommendations to follow.
[2018-07-24] MEDS ORDERED: ENOXAPARIN 100 MG/ML SYRINGE SQ SCH (14:45)
[2018-07-24] MEDS ORDERED: ENOXAPARIN 100 MG/ML SYRINGE SQ ONE (15:00)
--- NOTE | 2018-07-24 15:53 | P.DS ---
Providers Date of admission: 07/24/18 15:17 Attending physician: Jessica Orellana Consults: 07/23/18 14:23 Consult Physician Urgent Consulting Provider: Rom Mayorga Consult Reason/Comments: cp Do you want consulting provider notified?: Yes Primary care physician: Anne Marie Webb [facility] Course: Please note this is not a true discharge summary as patient left AMA Diagnoses: Chest pain, acute coronary event has been ruled out, however she has reversible ischemia on stress test and recommended cardiac cath. Patient decided to leave AGAINST MEDICAL ADVICE. Patient is counseled as below. Patient has capacity to make medical decisions based upon my evaluation Hypertension Hyperlipidemia Diabetes mellitus Chronic nicotine dependence History of Yarbrough's esophagus History of GERD Morbid obesity with BMI 45 Hospital course this is a pleasant 60 years old female who presents because of chest pain. Patient has been evaluated by cardiology team and they found patient have a small area of reversibility along the inferior apical wall. Cardiac cath recommended for the patient however patient decided to leave AGAINST MEDICAL ADVICE. Patient states that she left her doctor: Last night and she does not want to do that anymore, she said she does not have anybody else to help her with that. There was a friend at bedside but she does not think she can help her too. Patient is fully awake and oriented to time place and person and she is fully oriented to regarding her medical diagnoses. Risks including but not limited to cardiac arrest, , organ dysfunction which can lead to permanent damage, heart failure are explained for the patient, she verbalized understanding however she still wants to leave AGAINST MEDICAL ADVICE. I asked the patient if there are any think can do to prevent her from signing leaving AMA, and she answered "no". Patient does not look depressed, no suicidal ideation. No hallucination. Based upon my evaluation patient has capacity to make radical decision. Patient was consult if she changes in her mind, or she develops any other symptoms like but not limited to chest pain, discomfort, dyspnea, dizziness, fever, abdominal pain or pain anywhere else to call 911 on come to emergency room and she agrees. Patient was asked to get her prescription for her medication including aspirin, Protonix, Lopressor and nitroglycerin tablets however she is fully aware that this medication and or scrapes will not prevent the complication and that she still will be at risk of sudden and she verbalized understanding and acceptance. She does not want any more strips. However at the time of discharge patient denies chest pain, no dyspnea. No other complaints and she thinks she is at her baseline. Patient also counseled for bedrest and to see her PCP and bear keeper MICHAEL, she verbalized understanding and acceptance Gen: patient is a AAOx3, no distress CVS: S1-S2, RRR, no murmur Lungs: B/L CTA, no wheezing Abdomen: soft, no distention, no tenderness, positive bowel sounds Extremity: no leg edema or induration Time spent more than 35 minutes Plan - Discharge Summary New Discharge Prescriptions: New Aspirin 81 mg PO DAILY #30 chew Metoprolol Tartrate [Lopressor] 25 mg PO DAILY #60 tab Nitroglycerin Sl Tabs [Nitrostat] 0.4 mg SUBLINGUAL Q5M PRN #20 tab PRN Reason: Chest Pain Pantoprazole [Protonix] 40 mg PO AC-BRKFST #15 tablet.dr Continue Ergocalciferol [Vitamin D2 (DRISDOL)] 50,000 unit PO MO Ascorbic Acid [Vitamin C] 1,000 mg PO DAILY Cetirizine HCl [Zyrtec] 10 mg PO DAILY PRN PRN Reason: ALLERGIES Famotidine 40 mg PO DAILY Calcium Carbonate [Tums] 500 mg PO DAILY Magnesium Oxide 500 mg PO DAILY tiZANidine HCL [Zanaflex] 2 mg PO BID PRN #60 capsule PRN Reason: Muscle Spasm buPROPion HCL [Wellbutrin SR] 150 mg PO DAILY amLODIPine [Norvasc] 5 mg PO BID Acetaminophen [Tylenol 8 Hour] 650 mg PO Q8H PRN PRN Reason: Pain Levothyroxine Sodium [Synthroid] 50 mcg PO DAILY Cyanocobalamin (Vitamin B-12) [Vitamin B-12] 1,000 mcg PO DAILY Discharge Medication List Ascorbic Acid [Vitamin C] 1,000 mg PO DAILY 09/05/13 [History] Ergocalciferol [Vitamin D2 (DRISDOL)] 50,000 unit PO MO 09/05/13 [History] Cetirizine HCl [Zyrtec] 10 mg PO DAILY PRN 06/29/15 [History] Famotidine 40 mg PO DAILY 06/29/15 [History] Calcium Carbonate [Tums] 500 mg PO DAILY 04/12/16 [History] Magnesium Oxide 500 mg PO DAILY 04/12/16 [History] tiZANidine HCL [Zanaflex] 2 mg PO BID PRN #60 capsule 08/16/16 [Rx] amLODIPine [Norvasc] 5 mg PO BID 06/07/17 [History] buPROPion HCL [Wellbutrin SR] 150 mg PO DAILY 06/07/17 [History] Acetaminophen [Tylenol 8 Hour] 650 mg PO Q8H PRN 07/23/18 [History] Cyanocobalamin (Vitamin B-12) [Vitamin B-12] 1,000 mcg PO DAILY 07/23/18 [History] Levothyroxine Sodium [Synthroid] 50 mcg PO DAILY 07/23/18 [History] Aspirin 81 mg PO DAILY #30 chew 07/24/18 [Rx] Metoprolol Tartrate [Lopressor] 25 mg PO DAILY #60 tab 07/24/18 [Rx] Nitroglycerin Sl Tabs [Nitrostat] 0.4 mg SUBLINGUAL Q5M PRN #20 tab 07/24/18 [Rx] Pantoprazole [Protonix] 40 mg PO AC-BRKFST #15 tablet.dr 07/24/18 [Rx] Follow up Appointment(s)/Referral(s): Anne Marie Webb MD [Primary Care Provider] - 1-2 days
[2018-07-24] MEDS ORDERED: SODIUM CHLORIDE 0.9% 1,000 ML IV SCH (23:00)
--- NOTE | 2018-07-25 07:39 | EST ---
EXERCISE STRESS AGE: 62 SEX: F HT: 5'2" WT: 246 PROTOCOL: Persantine Cardiolite Study HEART RATE REST: 73 BLOOD PRESSURE REST: 157/70 MAXIMUM HEART RATE ACHIEVED: 108 MAXIMUM BLOOD PRESSURE: 173/86 INDICATIONS: Chest pain Baseline EKG revealed a normal sinus rhythm without significant ST-T changes. With Persantine administration, heart rate changed from 73 to 108 beats per minute, blood pressure changed from 157/70 to 173/86. Patient developed some headache and flushed feeling and also had transient chest tightness and discomfort. EKG revealed inferolateral ST abnormality suggestive of ischemia. Patient also had a persistent flushed feeling and nausea and aminophylline was given. With aminophylline administration and after some time, she felt better. EKG demonstrated inferolateral ST- segment changes with isolated PVCs. This is a positive stress test by EKG criteria. FINAL IMPRESSION: By EKG criteria, this is an abnormal Persantine stress test suggestive of ischemia with inferolateral ST-segment abnormality. The nuclear scan results which are more pertinent, will be reported by the radiologist. JOSE / KELVINN: [id number] /
== END 2018-07-24 15:50 | disposition left against medical advice (07) | DRG 313 ==
LOC: EC 11:51 → 1SOBS 14:23 → OBSVTOIN 07-24 15:17
PROVIDERS: ADMIT Hospitalist; ATTEND Hospitalist
DX: R07.89 Other chest pain (principal); Z68.42 Body mass index [BMI] 45.0-49.9, adult; E03.9 Hypothyroidism, unspecified; E11.9 Type 2 diabetes mellitus without complications; E66.01 Morbid (severe) obesity due to excess calories; E78.5 Hyperlipidemia, unspecified; F32.9 Major depressive disorder, single episode, unspecified; M79.7 Fibromyalgia; K22.70 Barrett's esophagus without dysplasia; G57.60 Lesion of plantar nerve, unspecified lower limb; M81.0 Age-related osteoporosis without current pathological fracture; K44.9 Diaphragmatic hernia without obstruction or gangrene; K21.9 Gastro-esophageal reflux disease without esophagitis; I08.3 Combined rheumatic disorders of mitral, aortic and tricuspid valves; I10 Essential (primary) hypertension; F17.210 Nicotine dependence, cigarettes, uncomplicated; Z79.890 Hormone replacement therapy; Z79.899 Other long term (current) drug therapy; Z90.710 Acquired absence of both cervix and uterus; Z82.49 Family history of ischemic heart disease and other diseases of the circulatory system; Z91.041 Radiographic dye allergy status; Z91.040 Latex allergy status; Z88.5 Allergy status to narcotic agent; Z88.8 Allergy status to other drugs, medicaments and biological substances; Z91.048 Other nonmedicinal substance allergy status
CPT/HCPCS: 36415; 71046; 78452; 80048; 80053; 80061; 83036; 83735; 84484; 85025; 85379; 85610; 85730; 93005; 93017; 93306; 96360; 96361; 99285

== ENCOUNTER 2018-07-26 07:30 | Day surgery (SDC) | payer MEDICARE, OTHER ==
[2018-07-26] MEDS ORDERED: ALPRAZolam 0.5 MG TAB PO PRN (07:44)
[2018-07-26] MEDS ORDERED: SODIUM CHLORIDE 0.9% 1,000 ML in EMPTY BAG 1 BAG IV ONE ×2 (07:44→08:00)
[2018-07-26] MEDS ORDERED: ATORVASTATIN 80 MG TAB PO STA (07:44)
[2018-07-26] MEDS ORDERED: ALPRAZolam 0.25 MG TAB PO PRN (07:44)
[2018-07-26] MEDS ORDERED: NITROGLYCERIN SL TABS 0.4 MG TAB SUBLINGUAL PRN ×2 (07:44→16:20)
[2018-07-26] MEDS ORDERED: ASPIRIN 81 MG ONE (11:41)
[2018-07-26 11:51] LABS: Glucose,Whole Blood 128 mg/dL (75-99)
[2018-07-26] MEDS ORDERED: SODIUM CHLORIDE 0.9% 1,000 ML IV ONE (13:00)
[2018-07-26] MEDS ORDERED: HEPARIN SODIUM 1,000 UN/ML (10ML VL) ONE (13:43)
[2018-07-26] MEDS ORDERED: LIDOCAINE 1% INJ 10MG/ML (20 ML MDV) ONE (13:43)
[2018-07-26] MEDS ORDERED: VERAPAMIL 2.5 MG/ML 2 ML AMP ONE (13:43)
[2018-07-26] MEDS ORDERED: TICAGRELOR 90 MG TAB ONE (14:37)
[2018-07-26] MEDS ORDERED: diphenhydrAMINE 50 MG/ML 1 ML VIAL IVP ONE (15:31)
[2018-07-26] MEDS ORDERED: methylPREDNISolone SOD SUCCI 125 MG/2 ML VIAL IVP ONE (15:32)
[2018-07-26] MEDS: MIDAZOLAM 2 MG/2 ML VIAL IVP ONE ×2 (15:34→15:42)
[2018-07-26] MEDS ORDERED: LIDOCAINE 1% INJ 10MG/ML (20 ML MDV) SQ ONE (15:34)
[2018-07-26] MEDS: VERAPAMIL SYRINGE (5 MG/10 ML) INTRAARTER ONE ×2 (15:37→16:10)
[2018-07-26] MEDS ORDERED: HEPARIN SODIUM 1,000 UN/ML (10ML VL) IV ONE (15:39)
[2018-07-26] MEDS: NITROGLYCERIN 1000MCG/10ML SYRINGE INTRACORON ONE ×2 (15:50→16:07)
[2018-07-26] MEDS ORDERED: BIVALIRUDIN BOLUS 250 MG/50 ML IV ONE (15:59)
[2018-07-26] MEDS ORDERED: BIVALIRUDIN 250 MG in SODIUM CHLORIDE 0.9% 50 ML IV ONE (16:00)
[2018-07-26] MEDS ORDERED: IOPAMIDOL-370 100ML BTL INJ ONE (16:03)
[2018-07-26] MEDS ORDERED: TICAGRELOR 90 MG TAB PO ONE (16:10)
[2018-07-26] MEDS ORDERED: RX INFO: IV CONTRAST WAS GIVEN 1 EACH MISC MISCELLANE PRN (16:20)
[2018-07-26] MEDS ORDERED: MAG HYDROX/AL HYDROX/SIMETH 30 ML CUP PO PRN (16:20)
[2018-07-26] MEDS ORDERED: ATROPINE SULFATE 0.1 MG/ML 10ML SYRINGE IV PRN (16:20)
[2018-07-26] MEDS ORDERED: ZOLPIDEM 5 MG TAB PO PRN (16:20)
[2018-07-26] MEDS ORDERED: LORATADINE 10 MG TAB PO PRN (16:24)
[2018-07-26] MEDS ORDERED: ACETAMINOPHEN TAB 325 MG TAB PO PRN (17:27)
[2018-07-26 18:03] VITALS: BMI 45.1
[2018-07-26] MEDS: amLODIPine 5 MG TAB PO SCH (18:39)
[2018-07-26] MEDS: SODIUM CHLORIDE 0.9% 1,000 ML IV SCH (18:48)
[2018-07-26] MEDS: ATORVASTATIN 80 MG TAB PO SCH ×2 (19:44→19:47)
[2018-07-26] MEDS: METOPROLOL TARTRATE 25 MG TAB PO SCH (19:44)
[2018-07-26] MEDS ORDERED: LISINOPRIL 10 MG TAB PO SCH (21:00)
--- NOTE | 2018-07-26 23:18 | CC ---
CARDIAC CATHETERIZATION REPORT DATE OF SERVICE: 07/26/2018. PROCEDURE: 1. Left heart catheterization and coronary angiography. 2. PTCA and stenting of proximal/mid dominant RCA with a drug-eluting stent. PERFORMED BY: Dr. Harper Zendejas. SEDATION: Moderate conscious sedation time was 39 minutes. Patient was administered Versed. Oxygen saturation, hemodynamics and EKG were monitored closely. CLINICAL INFORMATION: Mrs. Joan Laird is a 62-year-old lady with a history of smoking, hypertension, hypothyroidism, who was seen by me in the hospital about 3 days ago and advised a stress test in view of her presentation with chest tightness, pressure, and risk factor profile. Stress test revealed inferolateral ischemia and this was a Lexiscan stress test and also demonstrated EKG changes. However, she was advised coronary angiography, but has left the hospital and came back for this procedure electively as an outpatient. She has been placed on beta blockers but has refused to take statins. Risks, benefits, options and rationale were explained to the patient. There was a question of CONTRAST ALLERGY and she was pretreated with a Benadryl and Pepcid. She refused prednisone because she thought she has PREDNISONE ALLERGY. However, I gave her Solu-Medrol 50 mg, Benadryl 25 mg t.i.d. and Pepcid 20 mg t.i.d. prior to the procedure. PROCEDURE NOTE: Under local anesthesia and strict aseptic precautions, a 6-Slovenian introducer was placed in the right femoral artery. Initially I used a right Leticia catheter to perform selective coronary angiography of the right coronary artery. An Ultimate 1 catheter was used without success, but this catheter was used to check LV pressures. LV gram was not performed. I then used a 3.5 left Leticia type catheter to perform selective coronary angiography of the left system. Following the coronary angiography, I noted that there was a significant lesion at the junction of proximal and mid RCA, which was a long 70% lesion and I recommended intervention that was performed expeditiously. There was also a mid LAD lesion of about 40% in a calcified area which appeared tighter with a mock affect. LV pressures were obtained but LV gram was not performed. CARDIAC CATHETERIZATION FINDINGS: The left ventricle end-diastolic pressure was 10-12 mmHg without any gradient across aortic valve. SELECTIVE CORONARY ANGIOGRAPHY: RIGHT CORONARY ARTERY: Right coronary artery dominant vessel after the proximal one third, there is a long area of disease that involves the entire middle 1/3 and this is a 70% eccentric lesion with another focal area within this long lesion of about 70-80 percent. An acute marginal comes off just before and at the end of the lesion. Distally it bifurcates into PDA and PLV, both of which supply a sizable amount of myocardium. LEFT MAIN CORONARY ARTERY: This is a short patent disease-free vessel that bifurcates into LAD and circumflex. LEFT ANTERIOR DESCENDING CORONARY ARTERY: Good caliber vessel extends along the anterior wall. The mid portion of the LAD has moderate calcification. There is an eccentric 40% lesion located at a septal branch and in some views appears tighter, but I think this is a mock effect and does not seem critical. This is a [id number] focal disease with calcium. Beyond this the caliber improves and the LAD gives off septal and diagonal branches and runs all the way to the apex supplying a sizable amount of myocardium. No significant disease in the LAD system other than the 40% mid lesion. LEFT POSTERIOR CIRCUMFLEX CORONARY ARTERY: Technically nondominant vessel with good caliber and good distribution gives off obtuse marginal branches that runs laterally, has minor irregularities and no significant disease. PCI PROCEDURE DETAILS: I used a standard right Leticia guide catheter to cannulate the right coronary artery. A run-through wire was used to cross the lesion and wire was kept distally. Without predilatation a 28 mm long Xience 3.25 caliber stent, which was a drug-eluting stent was deployed at 14 atmospheres. Excellent angiographic result was achieved. Patient had chest pain and very mild inferior ST elevation. Excellent angiographic result without complication was achieved. The sheath was taken out and TR band applied as per protocol. The saturation in the fingers of the right hand to be 95%. Excellent angiographic result without complication was achieved. Patient received Brilinta 180 mg orally and also Angiomax bolus and infusion as per protocol. Results were discussed with the patient and there was no family available. MMODL / IJN: [id number] /
[2018-07-27] MEDS: SODIUM CHLORIDE 0.9% 1,000 ML IV SCH (03:10)
[2018-07-27] MEDS ORDERED: LEVOTHYROXINE 50 MCG TAB PO SCH (06:30)
[2018-07-27 07:38] LABS: Basophils % (A) 0 %; Eosinophils # (A) 0.1 k/uL (0-0.7); Eosinophils % (A) 1 %; HCT 41.4 % (34.0-46.0); HGB 13.7 gm/dL (11.4-16.0); Lymphocytes # (A) 1.4 k/uL (1.0-4.8); Lymphocytes % (A) 12 %; MCH 29.9 pg (25.0-35.0); MCV 90.6 fL (80.0-100.0); Mean Platelet Volume 7.3; Monocytes # (A) 0.9 k/uL (0-1.0); Monocytes % (A) 8 %; Neutrophils # (A) 9.1 k/uL (1.3-7.7); Neutrophils % (A) 79 %; Platelet Count 261 k/uL (150-450); RBC 4.57 m/uL (3.80-5.40); RDW 13.4 % (11.5-15.5); WBC 11.6 k/uL (3.8-10.6)
[2018-07-27 07:49] LABS: Anion Gap 11 mmol/L; Blood Urea Nitrogen 24 mg/dL (7-17); Calcium 10.1 mg/dL (8.4-10.2); Carbon Dioxide 21 mmol/L (22-30); Chloride 108 mmol/L (98-107); Glucose 145 mg/dL (74-99); Potassium 4.6 mmol/L (3.5-5.1); Sodium 140 mmol/L (137-145)
[2018-07-27] MEDS ORDERED: PNEUMOCOCCAL VACC-PNEUMOVAX 23 25 MCG/0.5 ML VIAL IM ONE (08:00)
[2018-07-27] MEDS ORDERED: INFLUENZA VACCINE (6 MOS+) 60 MCG/0.5 ML SYRINGE IM ONE (08:00)
[2018-07-27] MEDS ORDERED: buPROPion SR 150 MG TABLET.ER PO SCH (09:00)
[2018-07-27] MEDS ORDERED: FAMOTIDINE 20 MG TAB PO SCH (09:00)
[2018-07-27] MEDS ORDERED: ASPIRIN 81 MG PO SCH ×2 (09:00)
[2018-07-27] MEDS ORDERED: TICAGRELOR 90 MG TAB PO SCH (09:00)
[2018-07-27 09:03] VITALS: BP 175/74; PULSE 78; RESP 16; TEMP 98.6
[2018-07-27] MEDS ORDERED: LISINOPRIL 10 MG TAB PO SCH (09:15)
[2018-07-27] MEDS: MAGNESIUM OXIDE 400 MG TAB PO SCH ×2 (09:15→09:24)
[2018-07-27] MEDS: CYANOCOBALAMIN 500 MCG TAB PO SCH ×2 (09:15→09:24)
[2018-07-27] MEDS: METOPROLOL TARTRATE 25 MG TAB PO SCH (09:15)
[2018-07-27] MEDS: amLODIPine 5 MG TAB PO SCH (09:15)
[2018-07-27] MEDS: ASCORBIC ACID 500 MG TAB PO SCH ×2 (09:16→09:24)
[2018-07-27] MEDS: ATORVASTATIN 80 MG TAB PO SCH (09:16)
--- NOTE | 2018-07-27 14:27 | P.DS ---
Providers Attending physician: Tushar Zendejas Consults: 07/26/18 16:20 Consult Physician Routine Consulting Provider: [facility] Consult Reason/Comments: Post Interventional patient Do you want consulting provider notified?: Already Contacted Primary care physician: [facility] Course: INTERVAL HISTORY: The patient is a 62-year-old female admitted to the hospital by Dr. Zendejas for outpatient catheterization secondary to an abnormal stress test. She underwent cardiac catheterization via the right radial approach revealing long area of disease involving the entire middle one third of the RCA with approximately 70-80% stenosis, left main coronary artery is short, patent and disease-free, LAD with an area of approximately 40% lesion in the midportion, circumflex with minor irregularities. She underwent successful stent placement to the RCA. She has been initiated on dual antiplatelet therapy in the form of placenta 90 mg twice a day, aspirin 81 mg daily. She has also been initiated on lisinopril, atorvastatin, Lopressor and was told to continue amlodipine. All of her home medications were continued as previously ordered. Blood pressure 175/74 heart rate 78 afebrile maintaining oxygen saturation on room air. Laboratory data reviewed, WBC 11.6, hemoglobin 13.7, platelets 261, sodium 140, potassium 4.6, creatinine 0.81. Repeat EKG obtained this morning reveals sinus mechanism with no acute ST or T-wave abnormalities. She is seen and examined resting comfortably ambulating around her room. Her right wrist is clean, dry, intact with mild ecchymosis noted with strong radial pulse. She denies symptoms of chest discomfort, shortness of breath, dizziness or palpitations. GENERAL: Well-appearing, well-nourished and in no acute distress. NECK: Supple without JVD or thyromegaly. LUNGS: Breath sounds clear to auscultation bilaterally. Respiration equal and unlabored. No wheezes, rales or rhonchi. HEART: Regular rate and rhythm without murmurs, rubs or gallops. S1 and S2 heard. EXTREMITIES: Normal range of motion, no edema. No clubbing or cyanosis. Peripheral pulses intact. Right wrist puncture site clean, dry, intact, strong radial pulses with no evidence of hematoma or active bleeding. Mild ecchymosis noted. ASSESSMENT Coronary artery disease status post stent placement to the RCA maintained on dual antiplatelet therapy Hypertension Dyslipidemia Diabetes mellitus, diet controlled Chronic nicotine dependence Yarbrough's esophagus Gastroesophageal reflux disease Morbid obesity, BMI 45 PLAN Stable for discharge. Patient is hemodynamically stable and free of symptoms of angina. Retained on dual antiplatelet therapy. The importance of strict adherence to these medications has been discussed in great detail with the patient. She will take Brilinta 90 mg twice a day for 30 days and then be switched to Plavix 75 mg daily. This change will be handled in the outpatient setting. Smoking cessation strongly recommended as well as a regular regimen of diet and exercise for weight loss. Prescriptions have been sent to the pharmacy and follow-up appointment has been made for August 01 at 8:30 AM. Nurse Practitioner note has been reviewed, I agree with a documented findings and plan of care. Patient was seen and examined. Patient Condition at Discharge: Stable Plan - Discharge Summary Discharge Rx Participant: Yes New Discharge Prescriptions: New Atorvastatin [Lipitor] 80 mg PO HS #90 tab Lisinopril [Zestril] 10 mg PO BID #180 tab Ticagrelor [Brilinta] 90 mg PO BID #60 tab Continue Ergocalciferol [Vitamin D2 (DRISDOL)] 50,000 unit PO MO Ascorbic Acid [Vitamin C] 1,000 mg PO DAILY Cetirizine HCl [Zyrtec] 10 mg PO DAILY PRN PRN Reason: ALLERGIES Famotidine 40 mg PO DAILY Calcium Carbonate [Tums] 1,000 mg PO DAILY Magnesium Oxide 500 mg PO DAILY tiZANidine HCL [Zanaflex] 2 mg PO BID PRN #60 capsule PRN Reason: Muscle Spasm buPROPion HCL [Wellbutrin SR] 150 mg PO DAILY amLODIPine [Norvasc] 5 mg PO BID Acetaminophen [Tylenol 8 Hour] 650 mg PO Q8H PRN PRN Reason: Pain Levothyroxine Sodium [Synthroid] 50 mcg PO DAILY Cyanocobalamin (Vitamin B-12) [Vitamin B-12] 1,000 mcg PO DAILY Aspirin 81 mg PO DAILY #30 chew Nitroglycerin Sl Tabs [Nitrostat] 0.4 mg SUBLINGUAL Q5M PRN #20 tab PRN Reason: Chest Pain Pantoprazole [Protonix] 40 mg PO AC-BRKFST #15 tablet.dr Mehta Metoprolol Tartrate [Lopressor] 25 mg PO BID #60 tab Discharge Medication List Ascorbic Acid [Vitamin C] 1,000 mg PO DAILY 09/05/13 [History] Ergocalciferol [Vitamin D2 (DRISDOL)] 50,000 unit PO MO 09/05/13 [History] Cetirizine HCl [Zyrtec] 10 mg PO DAILY PRN 06/29/15 [History] Famotidine 40 mg PO DAILY 06/29/15 [History] Calcium Carbonate [Tums] 1,000 mg PO DAILY 04/12/16 [History] Magnesium Oxide 500 mg PO DAILY 04/12/16 [History] tiZANidine HCL [Zanaflex] 2 mg PO BID PRN #60 capsule 08/16/16 [Rx] amLODIPine [Norvasc] 5 mg PO BID 06/07/17 [History] buPROPion HCL [Wellbutrin SR] 150 mg PO DAILY 06/07/17 [History] Acetaminophen [Tylenol 8 Hour] 650 mg PO Q8H PRN 07/23/18 [History] Cyanocobalamin (Vitamin B-12) [Vitamin B-12] 1,000 mcg PO DAILY 07/23/18 [History] Levothyroxine Sodium [Synthroid] 50 mcg PO DAILY 07/23/18 [History] Aspirin 81 mg PO DAILY #30 chew 07/24/18 [Rx] Nitroglycerin Sl Tabs [Nitrostat] 0.4 mg SUBLINGUAL Q5M PRN #20 tab 07/24/18 [Rx] Pantoprazole [Protonix] 40 mg PO AC-BRKFST #15 tablet.dr 07/24/18 [Rx] Atorvastatin [Lipitor] 80 mg PO HS #90 tab 07/27/18 [Rx] Lisinopril [Zestril] 10 mg PO BID #180 tab 07/27/18 [Rx] Metoprolol Tartrate [Lopressor] 25 mg PO BID #60 tab 07/27/18 [Rx] Ticagrelor [Brilinta] 90 mg PO BID #60 tab 07/27/18 [Rx] Follow up Appointment(s)/Referral(s): Tushar Zendejas MD [STAFF PHYSICIAN] - 08/01/18 8:30 am (August 01 at 0830) Patient Instructions/Handouts: *Surgery [facility] - After Heart Catheterization - [place] Instructions, Left Heart Catheterization (DC), Heart Healthy Diet (DC) Activity/Diet/Wound Care/Special Instructions: Brilinta will be $3.80 a month Discharge Disposition: HOME SELF-CARE
== END 2018-07-27 10:55 | disposition home or self-care (01) ==
LOC: CATHCVL 07:30 → 3SCARD 16:11 → CATHCVL 07-27 10:55
PROVIDERS: ATTEND Internal Medicine Interventional Cardiology
DX: I25.110 Atherosclerotic heart disease of native coronary artery with unstable angina pectoris (principal); I25.84 Coronary atherosclerosis due to calcified coronary lesion; I10 Essential (primary) hypertension; F17.200 Nicotine dependence, unspecified, uncomplicated; E11.9 Type 2 diabetes mellitus without complications; K22.70 Barrett's esophagus without dysplasia; E78.5 Hyperlipidemia, unspecified; K21.9 Gastro-esophageal reflux disease without esophagitis; E66.01 Morbid (severe) obesity due to excess calories; Z68.42 Body mass index [BMI] 45.0-49.9, adult; F10.21 Alcohol dependence, in remission; M79.7 Fibromyalgia; I34.1 Nonrheumatic mitral (valve) prolapse; M19.90 Unspecified osteoarthritis, unspecified site; E03.9 Hypothyroidism, unspecified; F32.9 Major depressive disorder, single episode, unspecified; Z79.890 Hormone replacement therapy; Z79.899 Other long term (current) drug therapy; Z88.6 Allergy status to analgesic agent; Z91.041 Radiographic dye allergy status; Z91.040 Latex allergy status; Z88.5 Allergy status to narcotic agent; Z88.8 Allergy status to other drugs, medicaments and biological substances; Z91.09 Other allergy status, other than to drugs and biological substances
CPT/HCPCS: 93458; 80048; 85025; C9600; C1887; C1769; C1894; C1874; J2250; J1200; J2930; S0106; J2001; J1644; J0583; Q9967

== ENCOUNTER 2018-07-28 14:30 | Emergency (ER) | payer MEDICARE, OTHER ==
[2018-07-28 14:38] VITALS: BP 126/68; PULSE 68; RESP 18; TEMP 98.3
--- NOTE | 2018-07-28 17:03 | US ---
EXAMINATION TYPE: US radial artery UE RT DATE OF EXAM: 07/28/2018 COMPARISON: NONE CLINICAL HISTORY: Pain. Patient had right radial heart cath 2 days ago and bruising and swelling seen . Normal soft tissue scan of right wrist inferior, at and superior to cath site. Normal arterial flow w ith no obvious signs of pseudoaneurysm noted at this exam. Vascular flow appears normal and color-flow sonography. Doppler waveforms appear unremarkable. No abn ormal signal outside expected arterial course within the [id number] is evident. No abnormal fluid collections are identified. IMPRESSION: 1. Normal right radial artery within the [id number].
--- NOTE | 2018-07-28 17:10 | ED ---
Extremity Problem HPI - General Chief complaint: Extremity Problem,Nontraumatic Stated complaint: arm tingling & hard Time Seen by Provider: 07/28/18 14:59 Source: patient Mode of arrival: ambulatory Limitations: no limitations - History of Present Illness Initial comments: 62-year-old female presenting today for chief complaint of right hand swelling. Patient states she noted mild right hand swelling as well as bruising. Patient states she had repeat sent catheterization of the heart through the right radial artery. Patient states she was told to monitor swelling or any significant hardness of the hand. Patient was unsure who fell hard and presented to the emergency department for evaluation. Patient denies any increasing pain. Patient denies any redness or drainage fever chills night sweats chest pain dyspnea or other concerns. Patient states she needs to leave quickly. Patient requesting tingling because she was told not to move the right arm very much during the next week. Upon arrival patient VS WNL. Pt appear well. - Related Data Home Medications Medication Instructions Recorded Confirmed Ascorbic Acid [Vitamin C] 1,000 mg PO DAILY 09/05/13 07/26/18 Ergocalciferol [Vitamin D2 50,000 unit PO MO 09/05/13 07/26/18 (DRISDOL)] Cetirizine HCl [Zyrtec] 10 mg PO DAILY PRN 06/29/15 07/26/18 Famotidine 40 mg PO DAILY 06/29/15 07/26/18 Calcium Carbonate [Tums] 1,000 mg PO DAILY 04/12/16 07/26/18 Magnesium Oxide 500 mg PO DAILY 04/12/16 07/26/18 amLODIPine [Norvasc] 5 mg PO BID 06/07/17 07/26/18 buPROPion HCL [Wellbutrin SR] 150 mg PO DAILY 06/07/17 07/26/18 Acetaminophen [Tylenol 8 Hour] 650 mg PO Q8H PRN 07/23/18 07/26/18 Cyanocobalamin (Vitamin B-12) 1,000 mcg PO DAILY 07/23/18 07/26/18 [Vitamin B-12] Levothyroxine Sodium [Synthroid] 50 mcg PO DAILY 07/23/18 07/26/18 Previous Rx's Medication Instructions Recorded tiZANidine HCL [Zanaflex] 2 mg PO BID PRN #60 capsule 08/16/16 Aspirin 81 mg PO DAILY #30 chew 07/24/18 Nitroglycerin Sl Tabs [Nitrostat] 0.4 mg SUBLINGUAL Q5M PRN #20 tab 07/24/18 Pantoprazole [Protonix] 40 mg PO AC-BRKFST #15 tablet. 07/24/18 Atorvastatin [Lipitor] 80 mg PO HS #90 tab 07/27/18 Lisinopril [Zestril] 10 mg PO BID #180 tab 07/27/18 Metoprolol Tartrate [Lopressor] 25 mg PO BID #60 tab 07/27/18 Ticagrelor [Brilinta] 90 mg PO BID #60 tab 07/27/18 Allergies Allergy/AdvReac Type Severity Reaction Status Date / Time codeine Allergy Severe Nausea & Verified 07/28/18 14:38 Vomiting cortisone Allergy Severe Swelling Verified 07/28/18 14:38 dexamethasone Allergy Severe Swelling Verified 07/28/18 14:38 Iodinated Contrast- Oral and Allergy Severe Rash/Hives Verified 07/28/18 14:38 IV Dye [Iodinated Contrast Media - Oral and] naproxen [From Naprosyn] Allergy Severe Anaphylaxis Verified 07/28/18 14:38 adhesive Allergy Intermediate Itching Verified 07/28/18 14:38 bacitracin Allergy Intermediate Swelling Verified 07/28/18 14:38 [From Neosporin ([id number])] latex Allergy Unknown Itching Verified 07/28/18 14:38 neomycin Allergy Unknown Verified 07/28/18 14:38 [From Neosporin ([id number])] polymyxin B Allergy Unknown Verified 07/28/18 14:38 [From Neosporin ([id number])] prednisone Allergy Unknown Verified 07/28/18 14:38 amitriptyline HCl AdvReac Intermediate Unknown Verified 07/28/18 14:38 [From Elavil] Review of Systems ROS Statement: Those systems with pertinent positive or pertinent negative responses have been documented in the HPI. ROS Other: All systems not noted in ROS Statement are negative. Past Medical History Past Medical History: Chest Pain / Angina, Diabetes Mellitus, Fibromyalgia, Hypertension, Mitral Valve Prolapse (MVP), Osteoarthritis (OA), Thyroid Disorder Additional Past Medical History / Comment(s): hiatal hernia, barretts esopagus, mauricio barre. [facility]. degenerative disc disease, osteoperosis History of Any Multi-Drug Resistant Organisms: None Reported Past Surgical History: Section, Heart Catheterization With Stent, Hysterectomy, Tonsillectomy Additional Past Surgical History / Comment(s): lap eye surg Past Anesthesia/Blood Transfusion Reactions: No Reported Reaction Date of Last Stent Placement:: 07/26/18 Past Psychological History: Depression Smoking Status: Current some day smoker Past Alcohol Use History: None Reported, Rare Past Drug Use History: None Reported - Past Family History Father Family Medical History: Congestive Heart Failure (CHF) General Exam - General Exam Comments Initial Comments: General: The patient is awake and alert, in no distress, and does not appear acutely ill. Eye: Pupils are equal, round and reactive to light, extra-ocular movements are intact. No nystagmus. There is normal conjunctiva bilaterally. No signs of icterus. Cardiovascular: There is a regular rate and rhythm. No murmur, rub or gallop is appreciated. Respiratory: Lungs are clear to auscultation, respirations are non-labored, breath sounds are equal. No wheezes, stridor, rales, or rhonchi. Musculoskeletal: Normal ROM, no tenderness. Strength 5/5. Sensation intact. Neurological: A&O x 3. CN II-XII intact, There are no obvious motor or sensory deficits. Coordination appears grossly intact. Speech is normal. Skin: Skin is warm and dry and no rashes or lesions are noted. Incision healing well. No dehiscence. No surrounding erythema. Surrounding bruising. No palpable induration or tension/pain to palpation of right radial artery. No swelling of hand noted. +2 radial pulses b/l. Warm hands to palpation b/l. Psychiatric: Cooperative, appropriate mood & affect, normal judgment. Limitations: no limitations Course Vital Signs 07/28/18 14:36 Temperature 98.3 F Pulse Rate 68 Respiratory 18 Rate Blood Pressure 126/68 O2 Sat by Pulse 98 Oximetry Medical Decision Making - Medical Decision Making 52-year-old presenting for recheck of right radial catheterization site. There is no swelling induration or palpable tension to palpation of site. No tenderness. No redness no drainage no wound dehiscence. +2 radial pulse. More the hands bilaterally with no hand swelling. No ecchymosis this appears to be consistent with recent right heart catheterization. Cells obtained revealing no evidence of pseudoaneurysm. Patient left prior to these results, AMA as I had not dispositioned patient final results. Disposition Clinical Impression: Left against medical advice Disposition: Left Against Medical Advice Condition: Undetermined Is patient prescribed a controlled substance at d/c from ED?: No Referrals: Anne Marie Webb MD [Primary Care Provider] - 1-2 days Time of Disposition: 17:09
== END 2018-07-28 16:33 | disposition left against medical advice (07) ==
LOC: EC 14:30
DX: R20.2 Paresthesia of skin (principal); Z53.20 Procedure and treatment not carried out because of patient's decision for unspecified reasons; I10 Essential (primary) hypertension; E07.9 Disorder of thyroid, unspecified; F32.9 Major depressive disorder, single episode, unspecified; F17.200 Nicotine dependence, unspecified, uncomplicated; Z79.890 Hormone replacement therapy; Z79.899 Other long term (current) drug therapy; Z88.5 Allergy status to narcotic agent; Z88.8 Allergy status to other drugs, medicaments and biological substances; Z91.048 Other nonmedicinal substance allergy status; Z91.040 Latex allergy status; Z88.1 Allergy status to other antibiotic agents; Z91.041 Radiographic dye allergy status; Z88.6 Allergy status to analgesic agent; Z95.5 Presence of coronary angioplasty implant and graft
CPT/HCPCS: 93976; 99284

== ENCOUNTER 2018-12-29 20:56 | Emergency (ER) | payer MEDICARE, OTHER ==
[2018-12-29 21:05] VITALS: RESP 18
[2018-12-29] MEDS ORDERED: WATER FOR IRRIG, STERILE 1,000 ML BTL IRRIGATION ONE (21:39)
[2018-12-29] MEDS ORDERED: DIPH,PERTUS(ACELL)TETVAC-LF 0.5 ML VIAL IM ONE (21:39)
[2018-12-29] MEDS ORDERED: LIDOCAINE 1% INJ 10MG/ML (20 ML MDV) SQ STA (21:39)
[2018-12-29] MEDS ORDERED: cefTRIAXone 1,000 MG VIAL (IM USE) IM STA (21:39)
--- NOTE | 2018-12-29 21:54 | XR ---
EXAMINATION TYPE: XR foot complete RT DATE OF EXAM: 12/29/2018 COMPARISON: NONE HISTORY: Laceration TECHNIQUE: 3 views FINDINGS: Metatarsals are intact. I see no fracture nor dislocation. There is mild soft tissue swelli ng on the dorsum of the foot. I see no focal bone destruction. IMPRESSION: No fracture. Soft tissue swelling.
[2018-12-29 22:31] VITALS: BP 157/76; PULSE 77; TEMP 97.8
[2018-12-29] MEDS ORDERED: SULFAMETH-TMP DS STARTER PACK 2 TAB BTL PO STA (23:23)
[2018-12-29] MEDS ORDERED: SULFAMETHOX-TMP 800-160MG 1 EACH TAB PO STA (23:23)
--- NOTE | 2018-12-29 23:29 | ED ---
General Adult HPI - General Chief complaint: Wound/Laceration Stated complaint: foot lac Time Seen by Provider: 12/29/18 21:35 Source: patient, EMS, RN notes reviewed, old records reviewed Mode of arrival: EMS - History of Present Illness Initial comments: 63-year-old female patient presents ED chief complaint laceration to dorsal aspect of right foot. Patient port that she was in the shower, was almost gone completing her shower when the shower maverick fell down striking her in the dorsal aspect of the right foot. This did cause a laceration. Patient denies any fall or any secondary trauma. Denies all other complaints. Patient does need tetanus updated. Systemic: Pt denies fatigue, fever/chills, rash. Pt denies weakness, night sweats, weight loss. Neuro: Pt denies headache, visual disturbances, syncope or pre-syncope. HEENT: Pt denies ocular discharge or irritation, otalgia, rhinorrhea, pharyngitis or notable lymphadenopathy. Cardiopulmonary: Pt denies chest pain, SOB, heart palpitations, dyspnea on exertion. Abdominal/GI: Pt denies abdominal pain, n/v/d. : Pt denies dysuria, burning w/ urination, frequency/urgency. Denies new onset urinary or bowel incontinence. MSK: Pt denies myalgia, loss of strength or function in extremities. Neuro: Pt denies new onset weakness, paresthesias. - Related Data Home Medications Medication Instructions Recorded Confirmed Ascorbic Acid [Vitamin C] 1,000 mg PO DAILY 09/05/13 07/26/18 Ergocalciferol [Vitamin D2 50,000 unit PO MO 09/05/13 07/26/18 (DRISDOL)] Cetirizine HCl [Zyrtec] 10 mg PO DAILY PRN 06/29/15 07/26/18 Famotidine 40 mg PO DAILY 06/29/15 07/26/18 Calcium Carbonate [Tums] 1,000 mg PO DAILY 04/12/16 07/26/18 Magnesium Oxide 500 mg PO DAILY 04/12/16 07/26/18 amLODIPine [Norvasc] 5 mg PO BID 06/07/17 07/26/18 buPROPion HCL [Wellbutrin SR] 150 mg PO DAILY 06/07/17 07/26/18 Acetaminophen [Tylenol 8 Hour] 650 mg PO Q8H PRN 07/23/18 07/26/18 Cyanocobalamin (Vitamin B-12) 1,000 mcg PO DAILY 07/23/18 07/26/18 [Vitamin B-12] Levothyroxine Sodium [Synthroid] 50 mcg PO DAILY 07/23/18 07/26/18 Previous Rx's Medication Instructions Recorded tiZANidine HCL [Zanaflex] 2 mg PO BID PRN #60 capsule 08/16/16 Aspirin 81 mg PO DAILY #30 chew 07/24/18 Nitroglycerin Sl Tabs [Nitrostat] 0.4 mg SUBLINGUAL Q5M PRN #20 tab 07/24/18 Pantoprazole [Protonix] 40 mg PO AC-BRKFST #15 tablet.dr 07/24/18 Atorvastatin [Lipitor] 80 mg PO HS #90 tab 07/27/18 Lisinopril [Zestril] 10 mg PO BID #180 tab 07/27/18 Metoprolol Tartrate [Lopressor] 25 mg PO BID #60 tab 07/27/18 Ticagrelor [Brilinta] 90 mg PO BID #60 tab 07/27/18 Sulfamethox-Tmp 800-160Mg [Bactrim 1 tab PO Q12HR 7 Days #14 tab 12/29/18 DS 800-160 mg] Allergies Allergy/AdvReac Type Severity Reaction Status Date / Time codeine Allergy Severe Nausea & Verified 07/28/18 14:38 Vomiting cortisone Allergy Severe Swelling Verified 07/28/18 14:38 dexamethasone Allergy Severe Swelling Verified 07/28/18 14:38 Iodinated Contrast- Oral and Allergy Severe Rash/Hives Verified 07/28/18 14:38 IV Dye [Iodinated Contrast Media - Oral and] naproxen [From Naprosyn] Allergy Severe Anaphylaxis Verified 07/28/18 14:38 adhesive Allergy Intermediate Itching Verified 07/28/18 14:38 bacitracin Allergy Intermediate Swelling Verified 07/28/18 14:38 [From Neosporin ([id number])] latex Allergy Unknown Itching Verified 07/28/18 14:38 neomycin Allergy Unknown Verified 07/28/18 14:38 [From Neosporin ([id number])] polymyxin B Allergy Unknown Verified 07/28/18 14:38 [From Neosporin ([id number])] prednisone Allergy Unknown Verified 07/28/18 14:38 amitriptyline HCl AdvReac Intermediate Unknown Verified 07/28/18 14:38 [From Elavil] Review of Systems ROS Statement: Those systems with pertinent positive or pertinent negative responses have been documented in the HPI. ROS Other: All systems not noted in ROS Statement are negative. Past Medical History Past Medical History: Chest Pain / Angina, Diabetes Mellitus, Fibromyalgia, Hypertension, Mitral Valve Prolapse (MVP), Osteoarthritis (OA), Thyroid Disorder Additional Past Medical History / Comment(s): hiatal hernia, barretts esopagus, mauricio barre. [facility] NEUROMA. degenerative disc disease, osteoperosis History of Any Multi-Drug Resistant Organisms: None Reported Past Surgical History: Section, Heart Catheterization With Stent, Hysterectomy, Tonsillectomy Additional Past Surgical History / Comment(s): lap eye surg Past Anesthesia/Blood Transfusion Reactions: No Reported Reaction Date of Last Stent Placement:: 07/26/18 Past Psychological History: Depression Smoking Status: Current some day smoker Past Alcohol Use History: None Reported, Rare Past Drug Use History: None Reported - Past Family History Father Family Medical History: Congestive Heart Failure (CHF) General Exam - General Exam Comments Initial Comments: Constitutional: NAD, AOX3, Pt has pleasant affect. HEENT: NC/AT, trachea midline, neck supple, no lymphadenopathy. Posterior pharynx non erythematous, without exudates. External ears appear normal, without discharge. Mucous membranes moist. Eyes PERRLA, EOM intact. There is no scleral icterus. No pallor noted. Cardiopulmonary: RRR, no murmurs, rubs or gallops, no JVD noted. Lungs CTAB in anterior and posterior luong. No peripheral edema. Abdominal exam: Abdomen soft and non-distended. Abdomen non-tender to palpation in all 4 quadrants. Bowel sounds active in LLQ. No hepatosplenomegaly. No ecchymosis Neuro: CN II-XII grossly intact. No nuchal rigidity. No raccon eyes, no edwards sign, no hemotympanum. No cervical spinal tenderness. MSK: 4 cm laceration dorsal aspect right midfoot region. No ligamentous or bony involvement. Vigorously irrigated with 500 mL normal saline. Approximated with 5 simple interrupted sutures. No foreign body noted. Patient has full active range of motion of toes, sensation before and after procedure. No posterior calf tenderness bilaterally, homans sign negative bilaterally. Posterior tibialis and radial pulse +2 bilaterally. Sensation intact in upper and lower extremities. Full active ROM in upper and lower extremities, 5/5 stregnth. Course Vital Signs 12/29/18 12/29/18 20:57 22:30 Temperature 97.9 F 97.8 F Pulse Rate 77 Respiratory 18 18 Rate Blood Pressure 164/67 157/76 O2 Sat by Pulse 96 99 Oximetry Procedures - Laceration Laceration #1 Consent Obtained: verbal consent Indication: laceration Site: foot (R hand ) Size (cm): 4 Description: linear Depth: simple, single layer Anesthetic Used: lidocaine 1% Anesthesia Technique: local infiltration Amount (mls): 5 Pre-repair: wound explored, irrigated extensively, deep structures intact Type of Sutures: nylon Size of Sutures: 5-0 Number of Sutures: 5 Technique: simple, interrupted Patient Tolerated Procedure: well, no complications Medical Decision Making - Medical Decision Making 63-year-old female patient presents ED chief complaint laceration to dorsal aspect of right foot. Patient port that she was in the shower, was almost gone completing her shower when the shower maverick fell down striking her in the dorsal aspect of the right foot. This did cause a laceration. Patient denies any fall or any secondary trauma. Denies all other complaints. Patient does need tetanus updated. Patient will signs stable, afebrile. Physical exam displayed: 4 cm laceration dorsal aspect right midfoot region. No ligamentous or bony involvement. Vigorously irrigated with 500 mL normal saline. Approximated with 5 simple interrupted sutures. No foreign body noted. Patient has full active range of motion of toes, sensation before and after procedure. Plain film foot displayed soft tissue swelling, no osseous injury. Patient will be given 3 days of antibiotic prophylaxis. Patient has reportedly has adverse reaction to Keflex will be given 3 days of Bactrim. Return precautions discussed. Case discussed with Dr. Graff. Disposition Clinical Impression: Laceration Disposition: HOME SELF-CARE Condition: Stable Instructions (If sedation given, give patient instructions): Laceration (ED) Additional Instructions: Patient to adhere to previously discussed treatment plan and will take medication(s) as directed. Patient to follow up with PCP in 1-2 days. Patient to return to ED if symptoms do not improve. Please return for suture removal: Hand: 7-10 days Face: 5 days Chest/abdomen: 12-14 days Extremities: 7-10 days Scalp: 7 days Eyebrow: 5-7 days Foot/sole: 12-14 days Please monitor for signs and symptoms of infection including: redness, warmth, drainage, discharge. Please return to ED if these signs or symptoms occur, new signs or symptoms develop or if condition worsens in anyway. Prescriptions: Sulfamethox-Tmp 800-160Mg [Bactrim DS 800-160 mg] 1 tab PO Q12HR 7 Days #14 tab Is patient prescribed a controlled substance at d/c from ED?: No Referrals: Anne Marie Webb MD [Primary Care Provider] - 1-2 days
== END 2018-12-30 00:05 | disposition home or self-care (01) ==
LOC: EC 20:56
DX: S91.311A Laceration without foreign body, right foot, initial encounter (principal); I10 Essential (primary) hypertension; E07.9 Disorder of thyroid, unspecified; F32.9 Major depressive disorder, single episode, unspecified; F17.200 Nicotine dependence, unspecified, uncomplicated; Z88.1 Allergy status to other antibiotic agents; Z88.5 Allergy status to narcotic agent; Z88.6 Allergy status to analgesic agent; Z88.8 Allergy status to other drugs, medicaments and biological substances; Z91.040 Latex allergy status; Z91.041 Radiographic dye allergy status; Z91.048 Other nonmedicinal substance allergy status; Z79.890 Hormone replacement therapy; Z79.899 Other long term (current) drug therapy; Z87.19 Personal history of other diseases of the digestive system; Z95.5 Presence of coronary angioplasty implant and graft; Z23 Encounter for immunization; W20.8XXA Other cause of strike by thrown, projected or falling object, initial encounter; Y93.E1 Activity, personal bathing and showering; Y92.002 Bathroom of unspecified non-institutional (private) residence as the place of occurrence of the external cause
CPT/HCPCS: 73630; 90715; 99284; 12002; 90471; 96372; J2001; J0696

== ENCOUNTER 2019-01-01 19:04 | Observation (INO) | payer MEDICARE, OTHER ==
[2019-01-01 19:27] VITALS: RESP 18; TEMP 98.2
[2019-01-01] MEDS ORDERED: ASPIRIN 81 MG PO STA (19:33)
[2019-01-01] MEDS ORDERED: NITROGLYCERIN OINT 1 INCH/GM PACKET TOPICAL STA (19:33)
--- NOTE | 2019-01-01 19:36 | ED ---
General Adult HPI - General Chief complaint: Chest Pain Stated complaint: chest pain Time Seen by Provider: 01/01/19 19:20 Source: patient, EMS, RN notes reviewed Mode of arrival: EMS Limitations: no limitations - History of Present Illness Initial comments: This is a 63-year-old female presents emergency Department complaining of chest pain. Patient states it started 1 hour ago. Patient states she does have high blood pressure and high cholesterol as well as hypertension. Patient states she continues to smoke. Patient states recently she just had a stent placed as well. Patient states the chest pain was associated with shortness of breath and some mild diaphoresis. Patient states the pain also bradycardia down the left arm. Currently there is only chest pain no radiation or shortness of breath. Patient denies any recent fever chills or cough. Patient denies any lightheadedness or dizziness. Patient denies any palpitations. Patient denies headache patient denies numbness weakness per patient denies any leg swelling or calf tenderness. Patient denies abdominal pain patient denies nausea vomiting diarrhea. - Related Data Home Medications Medication Instructions Recorded Confirmed Ascorbic Acid [Vitamin C] 1,000 mg PO HS 09/05/13 01/01/19 Ergocalciferol [Vitamin D2 50,000 unit PO MO 09/05/13 01/01/19 (DRISDOL)] Cetirizine HCl [Zyrtec] 10 mg PO DAILY PRN 06/29/15 01/01/19 Famotidine 40 mg PO DAILY 06/29/15 01/01/19 Calcium Carbonate [Tums] 1,000 mg PO HS 04/12/16 01/01/19 Magnesium Oxide 500 mg PO HS 04/12/16 01/01/19 amLODIPine [Norvasc] 5 mg PO BID 06/07/17 01/01/19 buPROPion HCL [Wellbutrin SR] 150 mg PO DAILY 06/07/17 01/01/19 Acetaminophen [Tylenol 8 Hour] 650 mg PO Q8H PRN 07/23/18 01/01/19 Levothyroxine Sodium [Synthroid] 50 mcg PO DAILY 07/23/18 01/01/19 Metoprolol Tartrate [Lopressor] 25 mg PO DAILY 01/01/19 01/01/19 Previous Rx's Medication Instructions Recorded tiZANidine HCL [Zanaflex] 2 mg PO BID PRN #60 capsule 08/16/16 Aspirin 81 mg PO DAILY #30 chew 07/24/18 Atorvastatin [Lipitor] 80 mg PO HS #90 tab 07/27/18 Lisinopril [Zestril] 10 mg PO BID #180 tab 07/27/18 Allergies Allergy/AdvReac Type Severity Reaction Status Date / Time codeine Allergy Severe Nausea & Verified 01/01/19 19:54 Vomiting cortisone Allergy Severe Swelling Verified 01/01/19 19:54 dexamethasone Allergy Severe Swelling Verified 01/01/19 19:54 Iodinated Contrast Media Allergy Severe Rash/Hives Verified 01/01/19 19:54 [Iodinated Contrast Media - Oral and] naproxen [From Naprosyn] Allergy Severe Anaphylaxis Verified 01/01/19 19:54 adhesive Allergy Intermediate Itching Verified 01/01/19 19:54 bacitracin Allergy Intermediate Swelling Verified 01/01/19 19:54 [From Neosporin ([id number])] latex Allergy Unknown Itching Verified 01/01/19 19:54 neomycin Allergy Unknown Verified 01/01/19 19:54 [From Neosporin ([id number])] polymyxin B Allergy Unknown Verified 01/01/19 19:54 [From Neosporin ([id number])] prednisone Allergy Unknown Verified 01/01/19 19:54 amitriptyline HCl AdvReac Intermediate Unknown Verified 01/01/19 19:54 [From Elavil] Review of Systems ROS Statement: Those systems with pertinent positive or pertinent negative responses have been documented in the HPI. ROS Other: All systems not noted in ROS Statement are negative. Past Medical History Past Medical History: Chest Pain / Angina, Diabetes Mellitus, Fibromyalgia, Hypertension, Mitral Valve Prolapse (MVP), Osteoarthritis (OA), Thyroid Disorder Additional Past Medical History / Comment(s): hiatal hernia, barretts esopagus, mauricio barre. [facility] NE[facility]OMA. degenerative disc disease, osteoperosis History of Any Multi-Drug Resistant Organisms: None Reported Past Surgical History: Section, Heart Catheterization With Stent, Hy sterectomy, Tonsillectomy Additional Past Surgical History / Comment(s): lap eye surg Past Anesthesia/Blood Transfusion Reactions: No Reported Reaction Date of Last Stent Placement:: 07/26/18 Past Psychological History: Depression Smoking Status: Current some day smoker Past Alcohol Use History: None Reported, Rare Past Drug Use History: None Reported - Past Family History Father Family Medical History: Congestive Heart Failure (CHF) General Exam - General Exam Comments Initial Comments: GENERAL: Patient is well-developed and well-nourished. Patient is nontoxic and well- hydrated and is in mild distress. ENT: Neck is soft and supple. No significant lymphadenopathy is noted. Oropharynx is clear. Moist mucous membranes. Neck has full range of motion without eliciting any pain. EYES: The sclera were anicteric and conjunctiva were pink and moist. Extraocular movements were intact and pupils were equal round and reactive to light. Eyelids were unremarkable. PULMONARY: Unlabored respirations. Good breath sounds bilaterally. No audible rales rhonchi or wheezing was noted. CARDIOVASCULAR: There is a regular rate and rhythm without any murmurs gallops or rubs. ABDOMEN: Soft and nontender with normal bowel sounds. No palpable organomegaly was noted. There is no palpable pulsatile mass. SKIN: Skin is clear with no lesions or rashes and otherwise unremarkable. NEUROLOGIC: Patient is alert and oriented x3. Cranial nerves II through XII are grossly intact. Motor and sensory are also intact. Normal speech, volume and content. Symmetrical smile. MUSCULOSKELETAL: Normal extremities with adequate strength and full range of motion. No lower extremity swelling or edema. No calf tenderness. LYMPHATICS: No significant lymphadenopathy is noted PSYCHIATRIC: Normal psychiatric evaluation. Limitations: no limitations Course Vital Signs 01/01/19 19:23 Temperature 98.2 F Pulse Rate 69 Respiratory 18 Rate Blood Pressure 129/58 O2 Sat by Pulse 98 Oximetry Medical Decision Making - Medical Decision Making EKG shows normal sinus rhythm at 67 bpm VT interval 208 6 QRS is under QT intervals 422 QTC is 445. Patient's EKG shows no ST segment elevation or depression. Chest x-ray shows no acute abnormality. The patient's chest pain was relieved emergency department with nitroglycerin. Because of the unstable angina picture risk factors I placed the patient on heparin. I spoke with Dr. Quiros she agreed to admit the patient admitted the patient I wrote admitting orders and consult cardiology I continued heparin aspirin Nitropaste on the floor. I discussed smoking cessation for greater than 3 minutes. The risks of smoking were discussed with the patient including but not limited to risks of cancer, stroke, coronary artery disease and COPD. Also discussed with the patient were multiple methods of quitting smoking. Lastly we discussed the financial costs of smoking. - Lab Data Result diagrams: 01/01/19 19:15 01/01/19 19:15 Lab Results 01/01/19 01/01/19 01/01/19 Range/Units 19:15 19:15 19:15 WBC 7.6 (3.8-10.6) k/uL RBC 3.86 (3.80-5.40) m/uL Hgb 11.8 (11.4-16.0) gm/dL Hct 34.0 (34.0-46.0) % MCV 88.2 (80.0-100.0) fL MCH 30.6 (25.0-35.0) pg MCHC 34.7 (31.0-37.0) g/dL RDW 15.2 (11.5-15.5) % Plt Count 299 (150-450) k/uL Neutrophils % 55 % Lymphocytes % 33 % Monocytes % 6 % Eosinophils % 3 % Basophils % 1 % Neutrophils # 4.2 (1.3-7.7) k/uL Lymphocytes # 2.5 (1.0-4.8) k/uL Monocytes # 0.5 (0-1.0) k/uL Eosinophils # 0.2 (0-0.7) k/uL Basophils # 0.1 (0-0.2) k/uL PT 9.4 (9.0-12.0) sec INR 0.9 (<1.2) APTT 22.7 (22.0-30.0) sec Sodium 139 (137-145) mmol/L Potassium 4.6 (3.5-5.1) mmol/L Chloride 108 H (98-107) mmol/L Carbon Dioxide 22 (22-30) mmol/L Anion Gap 9 mmol/L BUN 21 H (7-17) mg/dL Creatinine 0.75 (0.52-1.04) mg/dL Est GFR (CKD-EPI)AfAm >90 (>60 ml/min/1.73 sqM) Est GFR (CKD-EPI)NonAf 85 (>60 ml/min/1.73 sqM) Glucose 191 H (74-99) mg/dL Calcium 9.3 (8.4-10.2) mg/dL Magnesium 1.9 (1.6-2.3) mg/dL Total Bilirubin 0.1 L (0.2-1.3) mg/dL AST 22 (14-36) U/L ALT 33 (9-52) U/L Alkaline Phosphatase 173 H (38-126) U/L Troponin I (0.000-0.034) ng/mL Total Protein 6.0 L (6.3-8.2) g/dL Albumin 3.6 (3.5-5.0) g/dL 01/01/19 Range/Units 19:15 WBC (3.8-10.6) k/uL RBC (3.80-5.40) m/uL Hgb (11.4-16.0) gm/dL Hct (34.0-46.0) % MCV (80.0-100.0) fL MCH (25.0-35.0) pg MCHC (31.0-37.0) g/dL RDW (11.5-15.5) % Plt Count (150-450) k/uL Neutrophils % % Lymphocytes % % Monocytes % % Eosinophils % % Basophils % % Neutrophils # (1.3-7.7) k/uL Lymphocytes # (1.0-4.8) k/uL Monocytes # (0-1.0) k/uL Eosinophils # (0-0.7) k/uL Basophils # (0-0.2) k/uL PT (9.0-12.0) sec INR (<1.2) APTT (22.0-30.0) sec Sodium (137-145) mmol/L Potassium (3.5-5.1) mmol/L Chloride (98-107) mmol/L Carbon Dioxide (22-30) mmol/L Anion Gap mmol/L BUN (7-17) mg/dL Creatinine (0.52-1.04) mg/dL Est GFR (CKD-EPI)AfAm (>60 ml/min/1.73 sqM) Est GFR (CKD-EPI)NonAf (>60 ml/min/1.73 sqM) Glucose (74-99) mg/dL Calcium (8.4-10.2) mg/dL Magnesium (1.6-2.3) mg/dL Total Bilirubin (0.2-1.3) mg/dL AST (14-36) U/L ALT (9-52) U/L Alkaline Phosphatase (38-126) U/L Troponin I <0.012 (0.000-0.034) ng/mL Total Protein (6.3-8.2) g/dL Albumin (3.5-5.0) g/dL Critical Care Time Critical Care Time: Yes Total Critical Care Time: 35 Disposition Clinical Impression: Unstable angina pectoris Disposition: ADMITTED IP TO THIS HOSP Referrals: Anne Marie Webb MD [Primary Care Provider] - 1-2 days Time of Disposition: 20:46
[2019-01-01 19:51] LABS: Basophils # (A) 0.1 k/uL (0-0.2); Basophils % (A) 1 %; Eosinophils # (A) 0.2 k/uL (0-0.7); Eosinophils % (A) 3 %; HGB 11.8 gm/dL (11.4-16.0); Lymphocytes # (A) 2.5 k/uL (1.0-4.8); Lymphocytes % (A) 33 %; MCH 30.6 pg (25.0-35.0); MCHC 34.7 g/dL (31.0-37.0); MCV 88.2 fL (80.0-100.0); Mean Platelet Volume 7.5; Monocytes # (A) 0.5 k/uL (0-1.0); Monocytes % (A) 6 %; Neutrophils # (A) 4.2 k/uL (1.3-7.7); Neutrophils % (A) 55 %; Platelet Count 299 k/uL (150-450); RBC 3.86 m/uL (3.80-5.40); RDW 15.2 % (11.5-15.5); WBC 7.6 k/uL (3.8-10.6)
[2019-01-01 20:01] LABS: INR 0.9 (<1.2); Partial Thromboplastin Time 22.7 sec (22.0-30.0); Prothrombin Time 9.4 sec (9.0-12.0)
--- NOTE | 2019-01-01 20:04 | XR ---
EXAMINATION TYPE: XR chest 2V DATE OF EXAM: 01/01/2019 COMPARISON: 07/23/2018 HISTORY: Chest pain TECHNIQUE: Frontal and lateral views of the chest are obtained. FINDINGS: Heart and mediastinum are normal. Lungs are clear. Diaphragm is normal. There are chest le ads. Bony thorax is intact. IMPRESSION: Normal chest. No change.
[2019-01-01 20:05] LABS: ALT 33 U/L (9-52); AST 22 U/L (14-36); African American GFR (CKD) >90 (>60 ml/min/1.73 sqM); Albumin 3.6 g/dL (3.5-5.0); Alkaline Phosphatase 173 U/L (38-126); Anion Gap 9 mmol/L; Blood Urea Nitrogen 21 mg/dL (7-17); Calcium 9.3 mg/dL (8.4-10.2); Carbon Dioxide 22 mmol/L (22-30); Chloride 108 mmol/L (98-107); Glucose 191 mg/dL (74-99); Magnesium 1.9 mg/dL (1.6-2.3); Potassium 4.6 mmol/L (3.5-5.1); Sodium 139 mmol/L (137-145); Total Bilirubin 0.1 mg/dL (0.2-1.3)
[2019-01-01] MEDS ORDERED: HEPARIN SODIUM,PORCINE 5,000 UNIT/ML 1 ML VIAL IV ONE (20:38)
[2019-01-01] MEDS ORDERED: HEPARIN SOD,PORK IN 0.45% NACL 25,000 UNIT in 0.45% NACL 1 250ML.BAG IV SCH (20:45)
[2019-01-01] MEDS ORDERED: NITROGLYCERIN SL TABS 0.4 MG TAB SUBLINGUAL PRN (20:46)
[2019-01-01 21:24] VITALS: BP 149/77; PULSE 65
[2019-01-02] MEDS ORDERED: NITROGLYCERIN OINT 1 INCH/GM PACKET TOPICAL SCH
[2019-01-02] MEDS ORDERED: ASPIRIN 325 MG TAB PO SCH (09:00)
== END 2019-01-01 23:19 | disposition left against medical advice (07) ==
LOC: EC 19:04 → 1SOBS 20:46
PROVIDERS: ADMIT Internal Medicine; ATTEND Internal Medicine
DX: I25.110 Atherosclerotic heart disease of native coronary artery with unstable angina pectoris (principal); I10 Essential (primary) hypertension; E78.00 Pure hypercholesterolemia, unspecified; F32.9 Major depressive disorder, single episode, unspecified; F17.200 Nicotine dependence, unspecified, uncomplicated; M79.7 Fibromyalgia; I34.1 Nonrheumatic mitral (valve) prolapse; E11.9 Type 2 diabetes mellitus without complications; M19.90 Unspecified osteoarthritis, unspecified site; E07.9 Disorder of thyroid, unspecified; K22.70 Barrett's esophagus without dysplasia; K44.9 Diaphragmatic hernia without obstruction or gangrene; M81.0 Age-related osteoporosis without current pathological fracture; B27.00 Gammaherpesviral mononucleosis without complication; G57.60 Lesion of plantar nerve, unspecified lower limb; Z82.49 Family history of ischemic heart disease and other diseases of the circulatory system; Z90.710 Acquired absence of both cervix and uterus; Z95.5 Presence of coronary angioplasty implant and graft; Z53.21 Procedure and treatment not carried out due to patient leaving prior to being seen by health care provider
CPT/HCPCS: 99291; 36415; 93005; 80053; 83735; 84484; 85025; 85610; 85730; 71046; G0378

== ENCOUNTER 2019-01-03 14:11 | Emergency (ER) | payer MEDICARE, OTHER ==
[2019-01-03 14:24] VITALS: BP 126/87; PULSE 64; RESP 16; TEMP 98.1
--- NOTE | 2019-01-03 14:33 | ED ---
General Adult HPI - General Chief complaint: Wound/Laceration Stated complaint: revisit Suture inflammation Time Seen by Provider: 01/03/19 14:24 Source: patient Mode of arrival: ambulatory Limitations: no limitations - History of Present Illness Initial comments: Patient is a 63-year-old female presenting to the emergency department with a chief complaint of suture infection. Patient reports she lacerated her foot 5 days ago and received 5 sutures for repair. Patient reports today she noticed fairly mild redness along the suture line. Patient has no pain. Patient is also concerned about care for the stitches. Patient denies any fevers or chills. Patient denies any discharge. Patient denies taking any medication to alleviate the symptoms. Patient denies any alleviating or aggravating factors. - Related Data Home Medications Medication Instructions Recorded Confirmed Ascorbic Acid [Vitamin C] 1,000 mg PO HS 09/05/13 01/01/19 Ergocalciferol [Vitamin D2 50,000 unit PO MO 09/05/13 01/01/19 (DRISDOL)] Cetirizine HCl [Zyrtec] 10 mg PO DAILY PRN 06/29/15 01/01/19 Famotidine 40 mg PO DAILY 06/29/15 01/01/19 Calcium Carbonate [Tums] 1,000 mg PO HS 04/12/16 01/01/19 Magnesium Oxide 500 mg PO HS 04/12/16 01/01/19 amLODIPine [Norvasc] 5 mg PO BID 06/07/17 01/01/19 buPROPion HCL [Wellbutrin SR] 150 mg PO DAILY 06/07/17 01/01/19 Acetaminophen [Tylenol 8 Hour] 650 mg PO Q8H PRN 07/23/18 01/01/19 Levothyroxine Sodium [Synthroid] 50 mcg PO DAILY 07/23/18 01/01/19 Metoprolol Tartrate [Lopressor] 25 mg PO DAILY 01/01/19 01/01/19 Previous Rx's Medication Instructions Recorded tiZANidine HCL [Zanaflex] 2 mg PO BID PRN #60 capsule 08/16/16 Aspirin 81 mg PO DAILY #30 chew 07/24/18 Atorvastatin [Lipitor] 80 mg PO HS #90 tab 07/27/18 Lisinopril [Zestril] 10 mg PO BID #180 tab 07/27/18 Allergies Allergy/AdvReac Type Severity Reaction Status Date / Time codeine Allergy Severe Nausea & Verified 01/03/19 14:25 Vomiting cortisone Allergy Severe Swelling Verified 01/03/19 14:25 dexamethasone Allergy Severe Swelling Verified 01/03/19 14:25 Iodinated Contrast Media Allergy Severe Rash/Hives Verified 01/03/19 14:25 [Iodinated Contrast Media - Oral and] naproxen [From Naprosyn] Allergy Severe Anaphylaxis Verified 01/03/19 14:25 adhesive Allergy Intermediate Itching Verified 01/03/19 14:25 bacitracin Allergy Intermediate Swelling Verified 01/03/19 14:25 [From Neosporin ([id number])] latex Allergy Unknown Itching Verified 01/03/19 14:25 neomycin Allergy Unknown Verified 01/03/19 14:25 [From Neosporin ([id number])] polymyxin B Allergy Unknown Verified 01/03/19 14:25 [From Neosporin ([id number])] prednisone Allergy Unknown Verified 01/03/19 14:25 amitriptyline HCl AdvReac Intermediate Unknown Verified 01/03/19 14:25 [From Elavil] Review of Systems ROS Statement: Those systems with pertinent positive or pertinent negative responses have been documented in the HPI. ROS Other: All systems not noted in ROS Statement are negative. Past Medical History Past Medical History: Chest Pain / Angina, Diabetes Mellitus, Fibromyalgia, Hypertension, Mitral Valve Prolapse (MVP), Osteoarthritis (OA), Thyroid Disorder Additional Past Medical History / Comment(s): hiatal hernia, barretts esopagus, mauricio barre. [facility] NEUROMA. degenerative disc disease, osteoperosis History of Any Multi-Drug Resistant Organisms: None Reported Past Surgical History: Section, Heart Catheterization With Stent, Hysterectomy, Tonsillectomy Additional Past Surgical History / Comment(s): lap eye surg Past Anesthesia/Blood Transfusion Reactions: No Reported Reaction Date of Last Stent Placement:: 07/26/18 Past Psychological History: Depression Smoking Status: Current every day smoker Past Alcohol Use History: None Reported, Rare Past Drug Use History: None Reported - Past Family History Father Family Medical History: Congestive Heart Failure (CHF) General Exam Limitations: no limitations General appearance: alert, in no apparent distress Head exam: Present: atraumatic, normocephalic, normal inspection Eye exam: Present: normal appearance, PERRL, EOMI Pupils: Present: normal accommodation ENT exam: Present: normal exam, mucous membranes moist, normal external ear exam Neck exam: Present: normal inspection Respiratory exam: Present: normal lung sounds bilaterally Cardiovascular Exam: Present: regular rate, normal rhythm, normal heart sounds Extremities exam: Present: full ROM, normal capillary refill, other (+2 dorsalis pedis and posterior tibialis bilaterally.). Absent: normal inspection (2 cm laceration repair on the anterior aspect right foot. Very mild erythema along the suture line. No signs of cellulitis. No discharge noted.), tenderness, pedal edema, joint swelling Back exam: Present: normal inspection, tenderness Neurological exam: Present: alert, oriented X3 Psychiatric exam: Present: normal affect, normal mood Skin exam: Present: warm, intact, normal color Course Vital Signs 01/03/19 14:20 Temperature 98.1 F Pulse Rate 64 Respiratory 16 Rate Blood Pressure 126/87 O2 Sat by Pulse 98 Oximetry Medical Decision Making - Medical Decision Making Patient is a 63-year-old female presenting to the emergency department with a chief complaint of suture infection. Patient is concerned for possible infection of the foot after she had laceration repair 5 days ago. Patient noticed some erythema along the suture line but has no tenderness or pain. Physical examination indicates no signs of cellulitis. No discharge is noted. The laceration site appears to be healing well. Patient given thorough instructions regarding care for the sutures. Patient also given instructions regarding an onset of possible infection. Strict return parameters were thoroughly discussed with patient is understanding and agreeable. Case discussed with physician. Disposition Clinical Impression: Suture check Disposition: HOME SELF-CARE Condition: Stable Instructions (If sedation given, give patient instructions): Care For Your Stitches (DC) Additional Instructions: Please return to emergency department in 5-9 days. Please return to emergency department if symptoms worsen. Is patient prescribed a controlled substance at d/c from ED?: No Referrals: Anne Marie Webb MD [Primary Care Provider] - 1-2 days Time of Disposition: 14:32
== END 2019-01-03 15:02 | disposition home or self-care (01) ==
LOC: EC 14:11
DX: T81.40XA Infection following a procedure, unspecified, initial encounter (principal); I10 Essential (primary) hypertension; I34.1 Nonrheumatic mitral (valve) prolapse; E07.9 Disorder of thyroid, unspecified; Z95.5 Presence of coronary angioplasty implant and graft; F32.9 Major depressive disorder, single episode, unspecified; F17.200 Nicotine dependence, unspecified, uncomplicated; Z79.890 Hormone replacement therapy; Z79.899 Other long term (current) drug therapy; Z88.5 Allergy status to narcotic agent; Z88.8 Allergy status to other drugs, medicaments and biological substances; Z91.041 Radiographic dye allergy status; Z88.6 Allergy status to analgesic agent; Z91.048 Other nonmedicinal substance allergy status; Z88.1 Allergy status to other antibiotic agents; Z91.040 Latex allergy status
CPT/HCPCS: 99282

== ENCOUNTER 2019-04-19 19:03 | Emergency (ER) | payer MEDICARE, OTHER ==
[2019-04-19 19:27] VITALS: BP 120/63; PULSE 52; RESP 18; TEMP 98.4
--- NOTE | 2019-04-19 19:48 | ED ---
General Adult HPI - General Chief complaint: ENT Stated complaint: Bleeding throat Time Seen by Provider: 04/19/19 19:30 Source: patient Mode of arrival: ambulatory Limitations: no limitations - History of Present Illness Initial comments: Dictation was produced using [employer] dictation software. please excuse any grammatical, word or spelling errors. Chief Complaint: 63-year-old female presents with bloody sputum History of Present Illness: 63-year-old female today she's been having a cough. Patient states that she coughed up multiple times with sputum that was streaked with blood. Patient has history of Yarbrough's esophagus. Patient believes that symptoms are from a bleeding Yarbrough's esophagus. Patient states she had bleedi ng Yarbrough's esophagus episode approximately a year ago. She has not had any issues recently. Patient denies any shortness of breath. She has been having sore throat. Denies any shortness of breath. No chest pain no lower extremity pain. Denies any history of blood clot in the past. Patient denies any overt sick contacts. The ROS documented in this emergency department record has been reviewed and confirmed by me. Those systems with pertinent positive or negative responses have been documented in the HPI. All other systems are other negative and/or noncontributory. PHYSICAL EXAM: General Impression: Alert and oriented x3, not in acute distress HEENT: Normocephalic atraumatic, extra-ocular movements intact, pupils equal and reactive to light bilaterally, mucous membranes moist, no oropharyngeal erythema, no blood in the posterior oropharynx Cardiovascular: Heart regular rate and rhythm, S1&S2 audible, no murmurs, rubs or gallops Chest: Lungs clear to auscultation bilaterally, no rhonchi, no wheeze, no rales Abdomen: Bowel sounds present, abdomen soft, non-tender, non-distended, no organomegaly Musculoskeletal: Pulses present and equal in all extremities, no peripheral e cherise Motor: no focal deficits noted Neurological: CN II-XII grossly intact, no focal motor or sensory deficits noted Skin: Intact with no visualized rashes Psych: Normal affect and mood ED course: 63 yo female presents with mild case of hemoptysis. Signs upon arrival are within acceptable limits. Patient is refusing EKG. X-rays unremarkable. Laboratory evaluation is unremarkable. Hemoglobin stable. Metabolic panel is negative. Strep test negative. Patient observed in the measures department for several minutes with no such episodes of hemoptysis. She has stable vital signs well-appearing. We discharged per she is advised follow-up with PCP. All questions answered. Patient agreeable with disposition. - Related Data Home Medications Medication Instructions Recorded Confirmed Ascorbic Acid [Vitamin C] 1,000 mg PO HS 09/05/13 01/01/19 Ergocalciferol [Vitamin D2 50,000 unit PO MO 09/05/13 01/01/19 (DRISDOL)] Cetirizine HCl [Zyrtec] 10 mg PO DAILY PRN 06/29/15 01/01/19 Famotidine 40 mg PO DAILY 06/29/15 01/01/19 Calcium Carbonate [Tums] 1,000 mg PO HS 04/12/16 01/01/19 Magnesium Oxide 500 mg PO HS 04/12/16 01/01/19 amLODIPine [Norvasc] 5 mg PO BID 06/07/17 01/01/19 buPROPion HCL [Wellbutrin SR] 150 mg PO DAILY 06/07/17 01/01/19 Acetaminophen [Tylenol 8 Hour] 650 mg PO Q8H PRN 07/23/18 01/01/19 Levothyroxine Sodium [Synthroid] 50 mcg PO DAILY 07/23/18 01/01/19 Metoprolol Tartrate [Lopressor] 25 mg PO DAILY 01/01/19 01/01/19 Previous Rx's Medication Instructions Recorded tiZANidine HCL [Zanaflex] 2 mg PO BID PRN #60 capsule 08/16/16 Aspirin 81 mg PO DAILY #30 chew 07/24/18 Atorvastatin [Lipitor] 80 mg PO HS #90 tab 07/27/18 Lisinopril [Zestril] 10 mg PO BID #180 tab 07/27/18 Allergies Allergy/AdvReac Type Severity Reaction Status Date / Time codeine Allergy Severe Nausea & Verified 04/19/19 19:26 Vomiting cortisone Allergy Severe Swelling Verified 04/19/19 19:26 dexamethasone Allergy Severe Swelling Verified 04/19/19 19:26 Iodinated Contrast Media Allergy Severe Rash/Hives Verified 04/19/19 19:26 [Iodinated Contrast Media - Oral and] naproxen [From Naprosyn] Allergy Severe Anaphylaxis Verified 04/19/19 19:26 adhesive Allergy Intermediate Itching Verified 04/19/19 19:26 bacitracin Allergy Intermediate Swelling Verified 04/19/19 19:26 [From Neosporin ([id number])] latex Allergy Unknown Itching Verified 04/19/19 19:26 neomycin Allergy Unknown Verified 04/19/19 19:26 [From Neosporin ([id number])] polymyxin B Allergy Unknown Verified 04/19/19 19:26 [From Neosporin ([id number])] prednisone Allergy Unknown Verified 04/19/19 19:26 amitriptyline HCl AdvReac Intermediate Unknown Verified 04/19/19 19:26 [From Elavil] Review of Systems ROS Statement: Those systems with pertinent positive or pertinent negative responses have been documented in the HPI. ROS Other: All systems not noted in ROS Statement are negative. Past Medical History Past Medical History: Chest Pain / Angina, Diabetes Mellitus, Fibromyalgia, Hypertension, Mitral Valve Prolapse (MVP), Osteoarthritis (OA), Thyroid Disorder Additional Past Medical History / Comment(s): hiatal hernia, barretts esophagus, mauricio barre. [employer] NEUROMA. degenerative disc disease, osteoperosis History of Any Multi-Drug Resistant Organisms: None Reported Past Surgical History: Section, Heart Catheterization With Stent, Hysterectomy, Tonsillectomy Additional Past Surgical History / Comment(s): lap eye surg Past Anesthesia/Blood Transfusion Reactions: No Reported Reaction Date of Last Stent Placement:: 07/26/18 Past Psychological History: Depression Smoking Status: Current every day smoker Past Alcohol Use History: None Reported, Rare Past Drug Use History: None Reported - Past Family History Father Family Medical History: Congestive Heart Failure (CHF) General Exam Limitations: no limitations Course Vital Signs 04/19/19 19:19 Temperature 98.4 F Pulse Rate 52 L Respiratory 18 Rate Blood Pressure 120/63 O2 Sat by Pulse 96 Oximetry Medical Decision Making - Lab Data Result diagrams: 04/19/19 19:58 04/19/19 19:58 Lab Results 04/19/19 04/19/19 04/19/19 Range/Units 19:58 19:58 19:58 WBC 6.2 (3.8-10.6) k/uL RBC 4.17 (3.80-5.40) m/uL Hgb 12.7 (11.4-16.0) gm/dL Hct 38.4 (34.0-46.0) % MCV 92.2 (80.0-100.0) fL MCH 30.5 (25.0-35.0) pg MCHC 33.1 (31.0-37.0) g/dL RDW 13.2 (11.5-15.5) % Plt Count 261 (150-450) k/uL Neutrophils % 57 % Lymphocytes % 29 % Monocytes % 8 % Eosinophils % 3 % Basophils % 1 % Neutrophils # 3.5 (1.3-7.7) k/uL Lymphocytes # 1.8 (1.0-4.8) k/uL Monocytes # 0.5 (0-1.0) k/uL Eosinophils # 0.2 (0-0.7) k/uL Basophils # 0.1 (0-0.2) k/uL Sodium 140 (137-145) mmol/L Potassium 4.4 (3.5-5.1) mmol/L Chloride 107 (98-107) mmol/L Carbon Dioxide 26 (22-30) mmol/L Anion Gap 7 mmol/L BUN 23 H (7-17) mg/dL Creatinine 0.89 (0.52-1.04) mg/dL Est GFR (CKD-EPI)AfAm 80 (>60 ml/min/1.73 sqM) Est GFR (CKD-EPI)NonAf 69 (>60 ml/min/1.73 sqM) Glucose 88 (74-99) mg/dL Calcium 9.7 (8.4-10.2) mg/dL Group A Strep Rapid Negative (Negative) Disposition Clinical Impression: Hemoptysis Disposition: HOME SELF-CARE Condition: Good Instructions (If sedation given, give patient instructions): Hemoptysis (ED) Is patient prescribed a controlled substance at d/c from ED?: No Referrals: Anne Marie Webb MD [Primary Care Provider] - 1-2 days Time of Disposition: 20:46
[2019-04-19 20:16] LABS: Basophils # (A) 0.1 k/uL (0-0.2); Basophils % (A) 1 %; Eosinophils # (A) 0.2 k/uL (0-0.7); Eosinophils % (A) 3 %; HCT 38.4 % (34.0-46.0); HGB 12.7 gm/dL (11.4-16.0); Lymphocytes # (A) 1.8 k/uL (1.0-4.8); Lymphocytes % (A) 29 %; MCH 30.5 pg (25.0-35.0); MCHC 33.1 g/dL (31.0-37.0); MCV 92.2 fL (80.0-100.0); Mean Platelet Volume 8.1; Monocytes # (A) 0.5 k/uL (0-1.0); Monocytes % (A) 8 %; Neutrophils # (A) 3.5 k/uL (1.3-7.7); Neutrophils % (A) 57 %; Platelet Count 261 k/uL (150-450); RBC 4.17 m/uL (3.80-5.40); RDW 13.2 % (11.5-15.5); WBC 6.2 k/uL (3.8-10.6)
--- NOTE | 2019-04-19 20:23 | XR ---
EXAMINATION TYPE: XR chest 2V DATE OF EXAM: 04/19/2019 COMPARISON: 01/01/2019 INDICATION: TECHNIQUE: Frontal and lateral views of the chest are obtained. FINDINGS: The heart size is normal. The pulmonary vasculature is normal. The lungs are clear. IMPRESSION: 1. No acute pulmonary process.
[2019-04-19 20:30] LABS: Calcium 9.7 mg/dL (8.4-10.2); Potassium 4.4 mmol/L (3.5-5.1)
[2019-04-19 20:56] LABS: INR 0.9 (<1.2); Partial Thromboplastin Time 24.8 sec (22.0-30.0); Prothrombin Time 9.6 sec (9.0-12.0)
== END 2019-04-19 21:00 | disposition home or self-care (01) ==
LOC: EC 19:03
DX: R04.2 Hemoptysis (principal); E11.9 Type 2 diabetes mellitus without complications; I10 Essential (primary) hypertension; K22.70 Barrett's esophagus without dysplasia; F32.9 Major depressive disorder, single episode, unspecified; F17.200 Nicotine dependence, unspecified, uncomplicated; Z79.890 Hormone replacement therapy; Z79.899 Other long term (current) drug therapy; Z88.5 Allergy status to narcotic agent; Z88.8 Allergy status to other drugs, medicaments and biological substances; Z88.6 Allergy status to analgesic agent; Z91.048 Other nonmedicinal substance allergy status; Z88.1 Allergy status to other antibiotic agents; Z91.040 Latex allergy status; Z95.5 Presence of coronary angioplasty implant and graft
CPT/HCPCS: 36415; 71046; 80048; 85025; 85610; 85730; 87081; 87430; 99283

== ENCOUNTER → 2019-05-18 | Outpatient (CLI) | payer MEDICARE, OTHER ==
--- NOTE | 2019-05-22 10:11 | MM ---
Reason for exam: screening (asymptomatic). Last mammogram was performed 2 years and 8 months ago. History: Patient is postmenopausal. Took hormonal contraceptives for 6 months. Took estrogen for 3 months. Took progesterone for 3 months. Physical Findings: A clinical breast exam by your physician is recommended on an annual basis and results should be correlated with mammographic findings. MG 3D Screening Mammo W/Cad Bilateral CC and MLO view(s) were taken. Prior study comparison: September 09, 2016, bilateral MG 3d screening mammo w/cad. April 02, 2015, right breast MG 3d work up w/cad RT. The breast tissue is heterogeneously dense. This may lower the sensitivity of mammography. No significant changes when compared with prior studies. ASSESSMENT: Benign, BI-RAD 2 RECOMMENDATION: Routine screening mammogram of both breasts in 1 year.
== END | disposition home or self-care (01) ==
LOC: RADMAMWWP 10:38
PROVIDERS: ATTEND Obstetrics & Gynecology
DX: Z12.31 Encounter for screening mammogram for malignant neoplasm of breast (principal)
CPT/HCPCS: 77063; 77067

== ENCOUNTER → 2019-05-31 | Outpatient (CLI) | payer MEDICARE, OTHER ==
--- NOTE | 2019-05-31 16:21 | BD ---
EXAMINATION TYPE: Axial Bone Density DATE OF EXAM: 05/31/2019 COMPARISON: NONE CLINICAL HISTORY: 63-year-old female asymptomatic postmenopausal screening Height: 62 Weight: 198.0 FRAX RISK QUESTIONS: Alcohol (3 or more units per day): no Family History (Parent hip fracture): no Glucocorticoids (More than 3mos): no (Ex: prednisone, prednisolone, methylprednisolone, dexamethasone, and hydrocortisone). History of Fracture in Adulthood: no Secondary Osteoporosis: 1. Type 1 Diabetes: no 2. Hyperthyroidism: no 3. Menopause before 45: no 4. Malnutrition: no 5. Chronic liver disease: no Rheumatoid Arthritis: no Current Tobacco Use: yes RISK FACTORS HISTORY OF: Family History of Osteoporosis: no Active: sometimes Diet low in dairy products/other sources of calcium: no Postmenopausal woman: partial hysterectomy 1992 Lost more than 2 inches in height since high school: no MEDICATIONS: calcium , vit d, magnesium, thyroid Additional History: EXAM MEASUREMENTS: Bone mineral densitometry was performed using the [employer] System. Bone mineral density as measured about the Lumbar spine is: ----- L1-L4(G/cm2): 1.345 T Score Values are as follows: ----- L2: 0.9 ----- L3: 2.2 ----- L4: 1.4 ----- L1-L4: 1.4 Bone mineral density has: increased 13.6 % since study of: 09.28.2013 Bone mineral density about the R hip (g/cm2): 1.277 Bone mineral density about the L hip (g/cm2): 1.079 T Score values are as follows: -----R Neck: 1.7 -----L Neck: 0.3 -----R Total: 1.2 -----L Total: 1.0 Bone mineral density has: increased 0.9 % since study of: 09.28.2013 IMPRESSION: Normal (Values between +1 and -1 indicate normal bone mass). Consider repeating this study in 5 year s or sooner if there is some new clinical indication. NOTE: T-SCORE=SD OF THE YOUNG ADULT MEAN.
== END | disposition home or self-care (01) ==
LOC: RADBDWWP 15:01
PROVIDERS: ATTEND Family Medicine
DX: Z78.0 Asymptomatic menopausal state (principal)
CPT/HCPCS: 77080

== ENCOUNTER → 2019-12-03 | Outpatient (CLI) | payer MEDICARE, OTHER ==
--- NOTE | 2019-12-03 18:15 | US ---
EXAMINATION TYPE: US kidneys/renal and bladder DATE OF EXAM: 12/03/2019 COMPARISON: None CLINICAL HISTORY: 64-year-old female R79.89 abnormal findings of blood, N18.2 Chronic. Diabetic per p atient; elevated creatinine TECHNIQUE: Multiple sonographic images of the kidneys and bladder are obtained. FINDINGS: EXAM MEASUREMENTS: Right Kidney: 8.9 x 5.0 x 4.0 cm Left Kidney: 9.5 x 5.1 x 5.3 cm Post Void Residual Volume: 19.7 mL Kidneys: No hydronephrosis on either side. Bladder: Some focal lobulated mural based thickening along the left lateral bladder wall measuring 1. 7 cm likely normal contour indentation rather than a urothelial lesion. Short interval follow-up elvis mmended to reassess this area. Bilateral Jets seen: yes Normal Post Void Residual: yes IMPRESSION: 1. No hydronephrosis. 2. Increased postvoid bladder volume of 20 mL still falls within acceptable limits. 3. Some focal 1.7 cm lobulated mural based thickening along the left lateral bladder wall, suspect no rmal contour indentation rather than a urothelial lesion. 6-8 weeks follow-up ultrasound recommended to reassess.
== END | disposition home or self-care (01) ==
LOC: RADUSWWP 14:40
PROVIDERS: ATTEND Family Medicine
DX: N32.89 Other specified disorders of bladder (principal); N18.2 Chronic kidney disease, stage 2 (mild)
CPT/HCPCS: 76770

== ENCOUNTER → 2020-01-15 | Outpatient (CLI) | payer MEDICARE, OTHER ==
--- NOTE | 2020-01-16 07:05 | US ---
EXAMINATION TYPE: US kidneys/renal and bladder DATE OF EXAM: 01/15/2020 COMPARISON: US 12/03/2019 CLINICAL HISTORY: N32.89 BLADDER WALL THICKENING,N18.3 CKD. Follow up to previous EXAM MEASUREMENTS: Right Kidney: 10.0 x 4.0 x 4.4 cm Left Kidney: 10.6 x 5.1 x 4.3 cm Right Kidney: No hydronephrosis or masses seen Left Kidney: No hydronephrosis or masses seen Bladder: wnl Bilateral Jets seen: Yes There is no evidence for hydronephrosis at this point in time. No nephrolithiasis is seen. No kaela s are identified. The urinary bladder is anechoic. Bilateral ureteral jets are seen. IMPRESSION: No distinct abnormality appreciated at this time.
== END | disposition home or self-care (01) ==
LOC: RADUSWWP 16:03
PROVIDERS: ATTEND Internal Medicine
DX: N18.30 Chronic kidney disease, stage 3 unspecified (principal); N32.89 Other specified disorders of bladder
CPT/HCPCS: 76770

== ENCOUNTER 2020-05-14 07:32 | Emergency (ER) | payer MEDICARE, OTHER ==
[2020-05-14 07:42] VITALS: RESP 16; TEMP 97.9
[2020-05-14 07:43] VITALS: PULSE 55
--- NOTE | 2020-05-14 07:52 | ED ---
General Adult HPI - General Chief complaint: Chest Pain Stated complaint: chest pain Time Seen by Provider: 05/14/20 07:33 Source: EMS, RN notes reviewed Mode of arrival: EMS Limitations: no limitations - History of Present Illness Initial comments: Patient 64-year-old female presented to the emergency room today by EMS, the chief complaint of chest pain that began approximately 45 minutes ago. Patient does admit that she was up doing some housework after she ate breakfast and began feeling some chest "pressure". Patient states that she thought it may be just some indigestion as she had not taken her medication yet. She admits to history of Yarbrough's esophagus. Patient states that she then felt a little sensation to the right side of her face. She states this made her worse and she called 911. She states that when she was in the ambulance that symptoms started to resolve. She was given aspirin as well which she states she believes the symptoms started prior to the aspirin that she took. Patient denies any pain or any complaints currently at this time. Patient denies any recent fever, chills, shortness of breath, back pain, abdominal pain, nausea or vomiting, numbness or tingling, dysuria or hematuria, constipation or diarrhea, headaches or visual changes, or any other complaints. - Related Data Home Medications Medication Instructions Recorded Confirmed Ascorbic Acid [Vitamin C] 1,000 mg PO HS 09/05/13 05/14/20 Famotidine 40 mg PO DAILY 06/29/15 05/14/20 Calcium Carbonate [Tums] 1,000 mg PO HS 04/12/16 05/14/20 Magnesium Oxide 500 mg PO HS 04/12/16 05/14/20 buPROPion HCL [Wellbutrin SR] 150 mg PO DAILY 06/07/17 05/14/20 Levothyroxine Sodium [Synthroid] 50 mcg PO DAILY 07/23/18 05/14/20 Ammonium Lactate Lotion 1 applic TOPICAL DAILY 05/14/20 05/14/20 [Lac-Hydrin 12% Lotion] Hydrochlorothiazide 12.5 mg PO DAILY 05/14/20 05/14/20 [hydroCHLOROthiazide] Krill Oil 500 mg PO HS 05/14/20 05/14/20 Lidocaine 5% Patch [Lidoderm] 1 patch TOPICAL DAILY PRN 05/14/20 05/14/20 Turmeric Root Extract [Turmeric] 500 mg PO HS 05/14/20 05/14/20 Vitamin B Complex 1 cap PO DAILY 05/14/20 05/14/20 lisinopriL [Zestril] 5 mg PO HS 05/14/20 05/14/20 Allergies Allergy/AdvReac Type Severity Reaction Status Date / Time codeine Allergy Severe Nausea & Verified 05/14/20 08:38 Vomiting cortisone Allergy Severe Swelling Verified 05/14/20 08:38 dexamethasone Allergy Severe Swelling Verified 05/14/20 08:38 Iodinated Contrast Media Allergy Severe Rash/Hives Verified 05/14/20 08:38 [Iodinated Contrast Media - Oral and] naproxen [From Naprosyn] Allergy Severe Anaphylaxis Verified 05/14/20 08:38 adhesive Allergy Intermediate Itching Verified 05/14/20 08:38 bacitracin Allergy Intermediate Swelling Verified 05/14/20 08:38 [From Neosporin ([id number])] latex Allergy Unknown Itching Verified 05/14/20 08:38 neomycin Allergy Unknown Verified 05/14/20 08:38 [From Neosporin ([id number])] polymyxin B Allergy Unknown Verified 05/14/20 08:38 [From Neosporin ([id number])] prednisone Allergy Unknown Verified 05/14/20 08:38 amitriptyline HCl AdvReac Intermediate Unknown Verified 05/14/20 08:38 [From Elavil] Review of Systems ROS Statement: Those systems with pertinent positive or pertinent negative responses have been documented in the HPI. ROS Other: All systems not noted in ROS Statement are negative. Past Medical History Past Medical History: Chest Pain / Angina, Diabetes Mellitus, Fibromyalgia, Hypertension, Mitral Valve Prolapse (MVP), Osteoarthritis (OA), Thyroid Disorder Additional Past Medical History / Comment(s): hiatal hernia, barretts esophagus, mauricio barre. [facility]. degenerative disc disease, osteoperosis History of Any Multi-Drug Resistant Organisms: None Reported Past Surgical History: Section, Heart Catheterization With Stent, Hysterectomy, Tonsillectomy Additional Past Surgical History / Comment(s): lap eye surg Past Anesthesia/Blood Transfusion Reactions: No Reported Reaction Date of Last Stent Placement:: 07/26/18 Past Psychological History: Depression Smoking Status: Current some day smoker Past Alcohol Use History: None Reported, Rare Past Drug Use History: None Reported - Past Family History Father Family Medical History: Congestive Heart Failure (CHF) General Exam - General Exam Comments Initial Comments: General: The patient is awake and alert, in no distress, and does not appear acutely ill. Eye: extra-ocular movements are intact. There is normal conjunctiva bilaterally. No signs of icterus. Ears, nose, mouth and throat: There are moist mucous membranes and no oral lesions. Neck: The neck is supple, there is no tenderness or JVD. Cardiovascular: There is a regular rate and rhythm. No murmur, rub or gallop is appreciated. Respiratory: Lungs are clear to auscultation, respirations are non-labored, breath sounds are equal. No wheezes, stridor, rales, or rhonchi. Musculoskeletal: Normal ROM, no tenderness. Strength 5/5. Sensation intact. Neurological: A&O x 3. CN II-XII intact, There are no obvious motor or sensory deficits. Coordination appears grossly intact. Speech is normal. Skin: Skin is warm and dry and no rashes or lesions are noted. Psychiatric: Cooperative, appropriate mood & affect, normal judgment. 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 Normal sinus rhythm at 61 bpm. VT interval 182. QRS 98. QT/QTc 418/420. No acute ST changes. Medical Decision Making - Medical Decision Making Patient's chest x-ray was reviewed is unremarkable. EKG showing no acute abnormalities. Patient's troponin was negative. Remaining labs have been reviewed. Was discussed with patient about serial enzymes be admitted to the hospital for possible stress testing. Patient has declined. She states she has a dog at home that she does not have anyone else to take care of. She initially was agreeable to a repeat troponin to be obtained here in the emergency room. However, patient has told nursing staff that she would like to leave. She states that she can no longer stay. She is states that she cannot stay for this repeat troponin. She's been advised that she will troponin does not rule out possible cardiac disease. Patient is a symptomatic at this time. 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 She is advised that she should return to emergency room for any other concerns. Patient states understanding and is agreement with plan. - Lab Data Result diagrams: 05/14/20 07:55 05/14/20 07:55 Lab Results 05/14/20 05/14/20 05/14/20 Range/Units 07:55 07:55 07:55 WBC 5.5 (3.8-10.6) k/uL RBC 4.26 (3.80-5.40) m/uL Hgb 13.4 (11.4-16.0) gm/dL Hct 38.9 (34.0-46.0) % MCV 91.3 (80.0-100.0) fL MCH 31.4 (25.0-35.0) pg MCHC 34.4 (31.0-37.0) g/dL RDW 14.1 (11.5-15.5) % Plt Count 213 (150-450) k/uL MPV 7.4 Neutrophils % 46 % Lymphocytes % 41 % Monocytes % 7 % Eosinophils % 3 % Basophils % 1 % Neutrophils # 2.6 (1.3-7.7) k/uL Lymphocytes # 2.2 (1.0-4.8) k/uL Monocytes # 0.4 (0-1.0) k/uL Eosinophils # 0.2 (0-0.7) k/uL Basophils # 0.1 (0-0.2) k/uL Hypochromasia Slight PT 10.1 (9.0-12.0) sec INR 0.9 (<1.2) APTT 25.1 (22.0-30.0) sec Sodium 135 L (137-145) mmol/L Potassium 4.2 (3.5-5.1) mmol/L Chloride 100 (98-107) mmol/L Carbon Dioxide 25 (22-30) mmol/L Anion Gap 10 mmol/L BUN 33 H (7-17) mg/dL Creatinine 1.03 (0.52-1.04) mg/dL Est GFR (CKD-EPI)AfAm 66 (>60 ml/min/1.73 sqM) Est GFR (CKD-EPI)NonAf 58 (>60 ml/min/1.73 sqM) Glucose 144 H (74-99) mg/dL Calcium 9.9 (8.4-10.2) mg/dL Magnesium 1.9 (1.6-2.3) mg/dL Total Bilirubin 0.5 (0.2-1.3) mg/dL AST 34 (14-36) U/L ALT 23 (4-34) U/L Alkaline Phosphatase 72 (38-126) U/L Troponin I (0.000-0.034) ng/mL Total Protein 6.8 (6.3-8.2) g/dL Albumin 4.3 (3.5-5.0) g/dL 05/14/20 Range/Units 07:55 WBC (3.8-10.6) k/uL RBC (3.80-5.40) m/uL Hgb (11.4-16.0) gm/dL Hct (34.0-46.0) % MCV (80.0-100.0) fL MCH (25.0-35.0) pg MCHC (31.0-37.0) g/dL RDW (11.5-15.5) % Plt Count (150-450) k/uL MPV Neutrophils % % Lymphocytes % % Monocytes % % Eosinophils % % Basophils % % Neutrophils # (1.3-7.7) k/uL Lymphocytes # (1.0-4.8) k/uL Monocytes # (0-1.0) k/uL Eosinophils # (0-0.7) k/uL Basophils # (0-0.2) k/uL Hypochromasia PT (9.0-12.0) sec INR (<1.2) APTT (22.0-30.0) sec Sodium (137-145) mmol/L Potassium (3.5-5.1) mmol/L Chloride (98-107) mmol/L Carbon Dioxide (22-30) mmol/L Anion Gap mmol/L BUN (7-17) mg/dL Creatinine (0.52-1.04) mg/dL Est GFR (CKD-EPI)AfAm (>60 ml/min/1.73 sqM) Est GFR (CKD-EPI)NonAf (>60 ml/min/1.73 sqM) Glucose (74-99) mg/dL Calcium (8.4-10.2) mg/dL Magnesium (1.6-2.3) mg/dL Total Bilirubin (0.2-1.3) mg/dL AST (14-36) U/L ALT (4-34) U/L Alkaline Phosphatase (38-126) U/L Troponin I <0.012 (0.000-0.034) ng/mL Total Protein (6.3-8.2) g/dL Albumin (3.5-5.0) g/dL Disposition Clinical Impression: Chest pain Disposition: HOME SELF-CARE Condition: Stable Instructions (If sedation given, give patient instructions): Chest Pain (ED) Additional Instructions: Please follow-up with family doctor in the next 2 days. Please return to emergency room if the symptoms increase or worsen or for any other concerns. Is patient prescribed a controlled substance at d/c from ED?: No Referrals: Anne Marie Webb MD [Primary Care Provider] - 1-2 days Time of Disposition: 09:58
[2020-05-14 08:04] LABS: Basophils # (A) 0.1 k/uL (0-0.2); Basophils % (A) 1 %; Eosinophils # (A) 0.2 k/uL (0-0.7); Eosinophils % (A) 3 %; HCT 38.9 % (34.0-46.0); HGB 13.4 gm/dL (11.4-16.0); Hypochromasia Slight; Lymphocytes # (A) 2.2 k/uL (1.0-4.8); Lymphocytes % (A) 41 %; MCH 31.4 pg (25.0-35.0); MCHC 34.4 g/dL (31.0-37.0); MCV 91.3 fL (80.0-100.0); Mean Platelet Volume 7.4; Monocytes # (A) 0.4 k/uL (0-1.0); Monocytes % (A) 7 %; Neutrophils # (A) 2.6 k/uL (1.3-7.7); Neutrophils % (A) 46 %; Platelet Count 213 k/uL (150-450); RBC 4.26 m/uL (3.80-5.40); RDW 14.1 % (11.5-15.5); WBC 5.5 k/uL (3.8-10.6)
[2020-05-14 08:13] LABS: Albumin 4.3 g/dL (3.5-5.0); Calcium 9.9 mg/dL (8.4-10.2); Magnesium 1.9 mg/dL (1.6-2.3); Potassium 4.2 mmol/L (3.5-5.1); Total Bilirubin 0.5 mg/dL (0.2-1.3); Total Protein 6.8 g/dL (6.3-8.2)
[2020-05-14 08:22] LABS: INR 0.9 (<1.2); Partial Thromboplastin Time 25.1 sec (22.0-30.0); Prothrombin Time 10.1 sec (9.0-12.0)
--- NOTE | 2020-05-14 08:22 | XR ---
EXAMINATION TYPE: XR chest 2V DATE OF EXAM: 05/14/2020 COMPARISON: 04/19/2019 INDICATION: Chest pain TECHNIQUE: Single frontal view of the chest is obtained. FINDINGS: The heart size is normal. The pulmonary vasculature is normal. The lungs are clear. IMPRESSION: 1. No acute pulmonary process.
[2020-05-14 09:37] VITALS: BP 154/87
== END 2020-05-14 10:00 | disposition home or self-care (01) ==
LOC: EC 07:32
DX: R07.9 Chest pain, unspecified (principal); E11.9 Type 2 diabetes mellitus without complications; I10 Essential (primary) hypertension; F32.9 Major depressive disorder, single episode, unspecified; E07.9 Disorder of thyroid, unspecified; F17.200 Nicotine dependence, unspecified, uncomplicated; Z79.890 Hormone replacement therapy; Z79.899 Other long term (current) drug therapy; Z88.5 Allergy status to narcotic agent; Z88.8 Allergy status to other drugs, medicaments and biological substances; Z91.041 Radiographic dye allergy status; Z88.6 Allergy status to analgesic agent; Z91.048 Other nonmedicinal substance allergy status; Z88.1 Allergy status to other antibiotic agents; Z91.040 Latex allergy status; Z95.5 Presence of coronary angioplasty implant and graft; Z86.018 Personal history of other benign neoplasm
CPT/HCPCS: 36415; 71046; 80053; 83735; 84484; 85025; 85610; 85730; 93005; 99285

== ENCOUNTER → 2021-07-01 | Outpatient (CLI) | payer MEDICARE, OTHER | END | disposition home or self-care (01) | LOC: RADUSWWP 09:57 | PROVIDERS: ATTEND Family Medicine | DX: M79.602 Pain in left arm (principal); M79.89 Other specified soft tissue disorders; R22.32 Localized swelling, mass and lump, left upper limb; M79.662 Pain in left lower leg | CPT/HCPCS: 93922 ==

== ENCOUNTER 2021-11-21 16:20 | Emergency (ER) | payer MEDICARE, OTHER ==
[2021-11-21 16:34] VITALS: TEMP 98
[2021-11-21] MEDS ORDERED: ACETAMINOPHEN TAB 500 MG TAB PO STA (17:23)
[2021-11-21 17:39] LABS: Glucose,Whole Blood 85 mg/dL (70-110)
--- NOTE | 2021-11-21 18:01 | CT ---
EXAMINATION TYPE: CT brain cspine wo con CT DLP: 1079.3 mGycm, Automated exposure control for dose reduction was used. DATE OF EXAM: 11/21/2021 5:51 PM COMPARISON: CT facial bone 11/21/2021. CLINICAL INDICATION:Female, 66 years old with history of fall, facial trauma; fall, neck pain and fat lip TECHNIQUE: Brain: Multiple axial CT images of the brain were obtained without IV contrast. Cspine: Axial CT images from the skull base to the inferior aspect of T2 we obtained without intraven ous contrast. Coronal and sagittal reformatted images were also reviewed. FINDINGS: Brain: Extra-axial spaces: No abnormal extra-axial fluid collections. Ventricular system: Within normal limits Cerebral parenchyma: No acute intraparenchymal hemorrhage or mass effect. The wu-white junction is well differentiated. Cerebellum: Unremarkable. Mass effect: No evidence of midline shift. Intracranial vasculature: Atherosclerotic calcifications of the intracranial vessels. Soft tissues: Normal. Calvarium/osseous structures: No depressed skull fracture. Paranasal sinuses and mastoid air cells: Clear. Visualized orbits: Orbital contents are intact. Cervical spine: Fracture: None. Osseous structures: Multilevel degenerative disc disease changes with endplate spurring and disc oste ophyte complex's. Vertebral alignment: Within normal limits. Spinal canal/Neural Foramina: No evidence of significant spinal canal narrowing. No evidence for sign ificant neural foraminal stenosis. Neck soft tissues: Prevertebral soft tissues are within normal limits. Other: The airway is patent. The lung apices are clear. IMPRESSION: 1. No acute intracranial process. 2. No evidence of cervical spine fracture. 3. Mild multilevel degenerative disc disease.
--- NOTE | 2021-11-21 18:06 | CT ---
EXAMINATION TYPE: CT facial bones wo con CT DLP: 1079.3 mGycm, Automated exposure control for dose reduction was used. DATE OF EXAM: 11/21/2021 5:51 PM COMPARISON: CT head 11/21/2021, CT cervical spine 11/21/2021. CLINICAL INDICATION:Female, 66 years old with history of fall, facial trauma; PHH, fall, neck pain an d fat lip TECHNIQUE: Multiple unenhanced axial CT images were obtained of the facial bones soft tissue and bone windows. Coronal, axial and sagittal reformatted images were also provided in soft tissue and bone windows and submitted for interpretation. Additional 3-D reformatted images were obtained on a Designer [employer] workstation. FINDINGS: Beam hardening artifact from dental hardware. There is no evidence of fracture, subluxation, dislocat ion, or significant soft tissue swelling. The orbital contents are unremarkable. The temporal-mandibu lar joints appear symmetric. The visualized portion of the paranasal sinuses appear clear. IMPRESSION: No evidence for facial bone fracture.
[2021-11-21 18:34] LABS: Glucose,Whole Blood 78 mg/dL (70-110)
--- NOTE | 2021-11-21 19:05 | ED ---
General Adult HPI - General Chief complaint: Fall Stated complaint: fell Time Seen by Provider: 11/21/21 17:00 Source: patient, EMS Mode of arrival: EMS Limitations: no limitations - History of Present Illness Initial comments: 66 year old female with past medical history of thyroid disease, diabetes, degenerative disc disease presents to the emergency department after she sustained a fall. States that she was carrying some trash out to the dumpster when she tripped on a crack and fell forward hitting the left side of her cheek on the concrete. He should also landed on her left shoulder and left hip. Denies losing consciousness. She is on Brillinta for history of a coronary stent. Patient has a lip abrasion and states that she spit out a fragment of tooth. She has left shoulder pain which radiates across her chest. She was able to get up and ambulate after the injury and called to one of her neighbors to call EMS. She did not take anything for pain. She denies any shortness of breath. No abdominal pain. No knee, ankle or foot pain. No other alleviating, precipitating or modifying factors - Related Data Home Medications Medication Instructions Recorded Confirmed Ascorbic Acid [Vitamin C] 1,000 mg PO HS 09/05/13 05/14/20 Famotidine 40 mg PO DAILY 06/29/15 05/14/20 Calcium Carbonate [Tums] 1,000 mg PO HS 04/12/16 05/14/20 Magnesium Oxide 500 mg PO HS 04/12/16 05/14/20 buPROPion HCL [Wellbutrin SR] 150 mg PO DAILY 06/07/17 05/14/20 Levothyroxine Sodium [Synthroid] 50 mcg PO DAILY 07/23/18 05/14/20 Ammonium Lactate Lotion 1 applic TOPICAL DAILY 05/14/20 05/14/20 [Lac-Hydrin 12% Lotion] Krill Oil 500 mg PO HS 05/14/20 05/14/20 Lidocaine 5% Patch [Lidoderm] 1 patch TOPICAL DAILY PRN 05/14/20 05/14/20 Turmeric Root Extract [Turmeric] 500 mg PO HS 05/14/20 05/14/20 Vitamin B Complex 1 cap PO DAILY 05/14/20 05/14/20 hydroCHLOROthiazide 12.5 mg PO DAILY 05/14/20 05/14/20 lisinopriL [Zestril] 5 mg PO HS 05/14/20 05/14/20 Allergies Allergy/AdvReac Type Severity Reaction Status Date / Time codeine Allergy Severe Nausea & Verified 11/22/21 11:05 Vomiting cortisone Allergy Severe Swelling Verified 11/22/21 11:05 dexamethasone Allergy Severe Swelling Verified 11/22/21 11:05 Iodinated Contrast Media Allergy Severe Rash/Hives Verified 11/22/21 11:05 [Iodinated Contrast Media - Oral and] naproxen [From Naprosyn] Allergy Severe Anaphylaxis Verified 11/22/21 11:05 adhesive Allergy Intermediate Itching Verified 11/22/21 11:05 bacitracin Allergy Intermediate Swelling Verified 11/22/21 11:05 [From Neosporin ([id number])] latex Allergy Unknown Itching Verified 11/22/21 11:05 neomycin Allergy Unknown Verified 11/22/21 11:05 [From Neosporin ([id number])] polymyxin B Allergy Unknown Verified 11/22/21 11:05 [From Neosporin ([id number])] prednisone Allergy Unknown Verified 11/22/21 11:05 amitriptyline HCl AdvReac Intermediate Unknown Verified 11/22/21 11:05 [From Elavil] Review of Systems ROS Statement: Those systems with pertinent positive or pertinent negative responses have been documented in the HPI. ROS Other: All systems not noted in ROS Statement are negative. Past Medical History Past Medical History: Coronary Artery Disease (CAD), Chest Pain / Angina, Diabetes Mellitus, Fibromyalgia, Hypertension, Mitral Valve Prolapse (MVP), Osteoarthritis (OA), Renal Disease, Thyroid Disorder Additional Past Medical History / Comment(s): hiatal hernia, barretts esophagus, mauricio barre. [facility] NE[facility]OMA. degenerative disc disease, osteoperosis. two heart stents. renal, stage 2 History of Any Multi-Drug Resistant Organisms: None Reported Past Surgical History: Section, Heart Catheterization With Stent, Hysterectomy, Tonsillectomy Additional Past Surgical History / Comment(s): lap eye surg Past Anesthesia/Blood Transfusion Reactions: No Reported Reaction Date of Last Stent Placement:: 07/26/18 Past Psychological History: Depression Smoking Status: Former smoker Past Alcohol Use History: None Reported, Rare Past Drug Use History: None Reported - Past Family History Father Family Medical History: Congestive Heart Failure (CHF) General Exam Limitations: no limitations General appearance: alert, in no apparent distress Head exam: Present: normocephalic, other (abrasion left cheek.) Eye exam: Present: normal appearance, PERRL, EOMI, other (no racoon eyes. no entraptment). Absent: scleral icterus, conjunctival injection, periorbital swelling, periorbital tenderness ENT exam: Present: mucous membranes moist, other (no epistaxis. abrasion left cheek. bite normal. chipped tooth #10 - patient states this tooth was chipped previous to fall) Neck exam: Present: normal inspection. Absent: tenderness, meningismus, lymphadenopathy Respiratory exam: Present: normal lung sounds bilaterally. Absent: respiratory distress, wheezes, rales, rhonchi, stridor Cardiovascular Exam: Present: regular rate, normal rhythm, normal heart sounds. Absent: systolic murmur, diastolic murmur, rubs, gallop, clicks GI/Abdominal exam: Present: soft, normal bowel sounds. Absent: distended, tenderness, guarding, rebound, rigid Extremities exam: Present: normal inspection, full ROM, normal capillary refill. Absent: tenderness, pedal edema, joint swelling, calf tenderness Back exam: Present: normal inspection Neurological exam: Present: alert, oriented X3, CN II-XII intact Psychiatric exam: Present: normal affect, normal mood Skin exam: Present: warm, dry, intact, normal color. Absent: rash Course Vital Signs 11/21/21 11/21/21 16:24 19:14 Temperature 98.0 F Pulse Rate 73 69 Respiratory 18 20 Rate Blood Pressure 142/91 199/88 O2 Sat by Pulse 99 100 Oximetry EKG Findings - EKG Comments: EKG Findings:: EKG demonstrates sinus rhythm with a rate of 63. GA interval 186. QRS 108. No acute ST segment elevations or depressions Medical Decision Making - Medical Decision Making Upon arrival patient was placed into room 5. Thorough history and physical exam was performed. Patient arrives wearing the c-collar. Lip does not require repair at this time. Patient is sent for CT of her brain and cervical spine as well as face. X-rays are performed the patient's shoulder and pelvis. I did recommend x-ray of the chest however patient refused. Upon return of the results there discuss the patient. Recommended pain control and heating pad. Patient does have multiple ALLERGIES and therefore would like to stick with Tylenol. She is to follow-up with primary care doctor in 2-4 days. Return for any new or worsening symptoms. Patient agreeable to treatment plan and was discharged home in stable condition - Lab Data Lab Results 11/21/21 11/21/21 Range/Units 17:27 18:32 POC Glucose (mg/dL) 85 78 (70-110) mg/dL POC Glu Human Resource Officer ID Leroy TorrezNabil Marx Disposition Clinical Impression: Fall, Concussion without loss of consciousness, Facial trauma, Lip abrasion, Left shoulder pain Disposition: HOME SELF-CARE Condition: Stable Instructions (If sedation given, give patient instructions): Concussion (ED) Additional Instructions: Please follow-up with your primary care doctor in 2-4 days. Use a heating pad and tylenol. Return for any new or worsening symptoms Is patient prescribed a controlled substance at d/c from ED?: No Referrals: Anne Marie Webb MD [Primary Care Provider] - 1-2 days Time of Disposition: 19:23
--- NOTE | 2021-11-21 19:11 | XR ---
EXAMINATION TYPE: XR pelvis AP view DATE OF EXAM: 11/21/2021 6:44 PM INDICATION: Patient age:Female; 66 years old; Reason for study: Fall, hip pain COMPARISON: No relevant priors. TECHNIQUE: The pelvis was examined in AP projection. FINDINGS: No evidence of any acute osseous pathology, joint dislocation, or soft tissue swelling. Mul tiple phleboliths are noted within the pelvis. Mild degenerative changes of the hip joints bilaterall y. Mild degenerative change of the pubic symphysis and visualized lumbar spine. IMPRESSION: 1 No acute osseous pathology. 2. Mild osteoarthritis.
--- NOTE | 2021-11-21 19:12 | XR ---
EXAMINATION TYPE: XR shoulder complete LT DATE OF EXAM: 11/21/2021 6:44 PM INDICATION: Patient age:Female; 66 years old; Reason for study: trauma, fall; COMPARISON: Chest x-ray 05/14/2020 TECHNIQUE: The left shoulder was examined in AP, internally rotated and scapular Y projections. . FINDINGS: No evidence of acute osseous pathology, joint dislocation, or soft tissue swelling. The remaining por tions of the visualized chest are unremarkable. IMPRESSION: No evidence for fracture dislocation of the left shoulder joint.
[2021-11-21 19:17] VITALS: BP 199/88; PULSE 69; RESP 20
== END 2021-11-21 19:33 | disposition home or self-care (01) ==
LOC: EC 16:20
DX: W19.XXXA Unspecified fall, initial encounter (principal)
CPT/HCPCS: 36415; 70450; 70486; 72125; 72170; 93005

== ENCOUNTER → 2021-11-26 | Outpatient (CLI) | payer MEDICARE, OTHER ==
--- NOTE | 2021-11-26 08:49 | CT ---
EXAMINATION TYPE: CT brain wo con, CT facial bones wo con DATE OF EXAM: 11/26/2021 COMPARISON: 11/21/2021 HISTORY: 66-year-old female Headache, dizziness, change in vision, fall TECHNIQUE: Examination was done in axial plane without intravenous contrast. Coronal and sagittal r econstructions performed. Additional scanning of the facial bones with coronal reconstructions. CT DLP: 1042.98 (accession [id number]), 548.18 (accession [id number]) mGycm Automated exposure control for dose reduction was used. FINDINGS: HEAD: There is no evidence of acute intracranial hemorrhage, acute ischemic changes, mass, mass-effect, or extra-axial fluid collection. There is no effacement of cerebral sulci or basal subarachnoid cister ns. There is no hydrocephalus. There is no midline shift. Cross-white matter distinction is preserv ed. Unchanged asymmetric smaller right lateral ventricle likely congenital variation. Old lacunar infarct versus perivascular space left basal ganglia. Benign hyperostosis frontalis interna. Mastoid air cells well pneumatized. FACIAL BONES: Leftward nasal septal deviation. Paranasal sinuses are well pneumatized. Orbits and globes are intact . Nasal bone, maxillary spine, zygomatic arches, TMJs, pterygoid plates, and mandible appear intact. Th e patient is partially edentulous. COMBINED IMPRESSION: No acute intracranial abnormality seen. No acute facial bone fracture seen. Leftward nasal septal dev iation.
--- NOTE | 2021-11-26 10:17 | XR ---
EXAMINATION TYPE: XR shoulder complete BILAT DATE OF EXAM: 11/26/2021 CLINICAL HISTORY: pain COMPARISON: NONE TECHNIQUE: Three views of the left shoulder are obtained. FINDINGS: There is no acute fracture/dislocation evident. The acromioclavicular and glenohumeral radha int spaces appear within normal limits. The visualized ribs are intact and unremarkable. IMPRESSION: 1. There is no acute fracture or dislocation. ICD 10 NO FRACTURE, INITIAL EVALUATION EXAMINATION TYPE: XR shoulder complete BILAT DATE OF EXAM: 11/26/2021 CLINICAL HISTORY: pain TECHNIQUE: Three views of the right shoulder are obtained. COMPARISON: None FINDINGS: There is no acute fracture/dislocation evident. The acromioclavicular and glenohumeral radha int spaces appear within normal limits. The visualized ribs are intact and unremarkable.
--- NOTE | 2021-11-26 11:57 | XR ---
EXAMINATION TYPE: XR foot complete LT DATE OF EXAM: 11/26/2021 CLINICAL HISTORY: pain TECHNIQUE: Frontal, lateral and oblique images of the left foot are obtained. COMPARISON: None. FINDINGS: There is no acute fracture/dislocation evident. The joint spaces appear mildly narrowed. The overlying soft tissue appears unremarkable. IMPRESSION: There is no acute fracture or dislocation. ICD 10 NO FRACTURE, INITIAL EVALUATION
--- NOTE | 2021-11-26 11:59 | XR ---
EXAMINATION TYPE: XR ankle complete LT DATE OF EXAM: 11/26/2021 COMPARISON: NONE HISTORY: Pain TECHNIQUE: 3 views of the left ankle are submitted for evaluation. FINDINGS: There is no evidence for fracture or dislocation. Ankle mortise is intact. Soft tissues are within normal limits. IMPRESSION: 1. No evidence for acute fracture.
== END | disposition home or self-care (01) ==
LOC: RADCTMAIN 06:37
PROVIDERS: ATTEND Family Medicine
DX: M79.672 Pain in left foot (principal); M25.572 Pain in left ankle and joints of left foot; M25.512 Pain in left shoulder; S00.80XD Unspecified superficial injury of other part of head, subsequent encounter; J34.89 Other specified disorders of nose and nasal sinuses; W18.39XA Other fall on same level, initial encounter; X58.XXXA Exposure to other specified factors, initial encounter; X58.XXXD Exposure to other specified factors, subsequent encounter
CPT/HCPCS: 70450; 70486

== ENCOUNTER → 2022-05-07 | Outpatient (CLI) | payer MEDICARE, OTHER ==
--- NOTE | 2022-05-07 14:01 | MR ---
EXAMINATION TYPE: MR lumbar spine wo con DATE OF EXAM: 05/07/2022 COMPARISON: None HISTORY: Back pain CONTRAST: 0 mL intravenous Gadavist. TECHNIQUE: Multiplanar, multisequence images of the lumbar spine were acquired. FINDINGS: Cord terminates at the L1-2 level. L5-S1: No significant disc bulge or disc herniation. No spinal canal stenosis. No foraminal stenosi s. . L4-L5: Mild disc bulge is present. There is narrowing of the disc to this level. Disc uncovering is p resent with a grade 1 spondylolisthesis of L4 intracranial findings. No AP spinal canal stenosis pres ent. Moderate right and severe left foraminal stenosis is present. L3-L4: No significant disc bulge or disc herniation. No spinal canal stenosis. There appears to be severe right foraminal stenosis. Facet hypertrophy is present with posterior lateral thecal sac comp ression.. L2-L3: Minimal left paracentral bulge is present with anterior thecal sac compression. No spinal ne l stenosis is present. Moderate right foraminal stenosis is present. L1-L2: Mild disc bulge is present with intrathecal sac contact. No spinal canal stenosis or neural fo raminal stenosis No spinal canal stenosis. No foraminal stenosis. T12-L1: Minimal disc bulge is present with anterior thecal sac contact. No spinal canal stenosis. N o foraminal stenosis. T11-T12: Degenerative disc changes present through this level with some endplate changes may be prese nt. No spinal canal stenosis or neural foraminal stenosis is present. IMPRESSION: 1. Severe foraminal stenosis right L3-4 L4-5 with more moderate foraminal narrowing discussed above. Correlate with radicular symptoms. 2. Mild disc bulging with intrathecal sac compression discussed above. No stenosis is present. 3. Mild grade 1 spondylolisthesis of L4 anteriorly on L5.
== END | disposition home or self-care (01) ==
LOC: RADMRIMAIN 10:44
PROVIDERS: ATTEND Student in an Organized Health Care Education/Training Program
DX: M51.26 Other intervertebral disc displacement, lumbar region (principal); M43.16 Spondylolisthesis, lumbar region; M99.73 Connective tissue and disc stenosis of intervertebral foramina of lumbar region
CPT/HCPCS: 72148

== ENCOUNTER → 2022-07-27 | Outpatient (CLI) | payer MEDICARE, OTHER ==
--- NOTE | 2022-07-27 08:53 | US ---
EXAMINATION TYPE: US kidneys/renal and bladder DATE OF EXAM: 07/27/2022 COMPARISON: 01/14/2022 CLINICAL INDICATION: Female, 66 years old with history of N18.2 CHR KIDNEY DISEASE; Routine exam. Fo llow up. EXAM MEASUREMENTS: Right Kidney: 9.0 x 4.5 x 4.1 cm Left Kidney: 9.2 x 5.0 x 5.4 cm Right Kidney: No hydronephrosis or masses seen , mild increased echotexture. Left Kidney: No hydronephrosis or masses seen , mild increased echotexture. Bilateral Jets seen There is no evidence for hydronephrosis at this point in time. No nephrolithiasis is seen. No kaela s are identified. The urinary bladder is anechoic. Bilateral ureteral jets are seen. IMPRESSION: 1. No evidence of obstructive uropathy or renal calculus. 2. Mild increase in echogenicity of the kidneys suggestive of medical renal disease.
== END | disposition home or self-care (01) ==
LOC: RADUSWWP 08:15
PROVIDERS: ATTEND Internal Medicine Nephrology
DX: N18.2 Chronic kidney disease, stage 2 (mild) (principal)
CPT/HCPCS: 76770

== ENCOUNTER → 2022-07-30 | Outpatient (CLI) | payer MEDICARE, OTHER ==
--- NOTE | 2022-07-30 20:43 | MR ---
EXAMINATION TYPE: MR brain wo con DATE OF EXAM: 07/30/2022 8:32 PM COMPARISON: NONE HISTORY: Headache, sinus issues. FINDINGS: The ventricles, basal cisterns and sulci overlying the cerebral convexities are mildly enlarged. There is evidence of mild periventricular white matter ischemic demyelination. Remote deep white matter insults are also noted. No acute edema is seen on diffusion weighted imaging. There is no evidence for midline shift or mass effect. Acute intracranial hemorrhage or extra-axial collection is not evident. The paranasal sinuses and mastoid air cells are well-aerated. IMPRESSION: Age-related atrophic and chronic small vessel ischemic change. No acute intracranial process at this time.
== END | disposition home or self-care (01) ==
LOC: RADMRIMAIN 19:05
PROVIDERS: ATTEND Nurse Practitioner Family
DX: G44.52 New daily persistent headache (NDPH) (principal); G31.1 Senile degeneration of brain, not elsewhere classified; I67.82 Cerebral ischemia
CPT/HCPCS: 70551

== ENCOUNTER 2022-11-12 10:21 | Inpatient (IN) | payer MEDICARE, OTHER ==
[2022-11-12] MEDS ORDERED: NITROGLYCERIN OINT 1 INCH/GM PACKET TOPICAL STA (11:01)
[2022-11-12] MEDS ORDERED: ASPIRIN 81 MG PO STA (11:01)
--- NOTE | 2022-11-12 11:10 | ED ---
General Adult HPI - General Chief complaint: Chest Pain Stated complaint: Chest Pain Time Seen by Provider: 11/12/22 10:40 Source: patient, RN notes reviewed, old records reviewed Mode of arrival: EMS - History of Present Illness Initial comments: This is a 67-year-old female who presents with a 15 minute episode of chest pain radiated to her jaw. Patient has a past medical history significant for coronary artery disease high blood pressure high cholesterol and a 40 year smo skyler history which she has quit 2 years ago. Patient also strong family history. Patient denied any shortness of breath sweating or nausea from the chest pain. Patient states it was a heaviness however. Patient denies any leg swelling or calf tenderness. Patient denies any chest pain currently. Patient denies abdominal pain patient denies nausea vomiting diarrhea per patient denies lightheadedness dizziness. - Related Data Home Medications Medication Instructions Recorded Confirmed Ascorbic Acid [Vitamin C] 1,000 mg PO HS 09/05/13 05/14/20 Famotidine 40 mg PO DAILY 06/29/15 05/14/20 Calcium Carbonate [Tums] 1,000 mg PO HS 04/12/16 05/14/20 Magnesium Oxide 500 mg PO HS 04/12/16 05/14/20 buPROPion HCL [Wellbutrin SR] 150 mg PO DAILY 06/07/17 05/14/20 Levothyroxine Sodium [Synthroid] 50 mcg PO DAILY 07/23/18 05/14/20 Ammonium Lactate Lotion 1 applic TOPICAL DAILY 05/14/20 05/14/20 [Lac-Hydrin 12% Lotion] Krill Oil 500 mg PO HS 05/14/20 05/14/20 Lidocaine 5% Patch [Lidoderm] 1 patch TOPICAL DAILY PRN 05/14/20 05/14/20 Turmeric Root Extract [Turmeric] 500 mg PO HS 05/14/20 05/14/20 Vitamin B Complex 1 cap PO DAILY 05/14/20 05/14/20 hydroCHLOROthiazide 12.5 mg PO DAILY 05/14/20 05/14/20 lisinopriL [Zestril] 5 mg PO HS 05/14/20 05/14/20 Allergies Allergy/AdvReac Type Severity Reaction Status Date / Time codeine Allergy Severe Nausea & Verified 11/12/22 10:33 Vomiting cortisone Allergy Severe Swelling Verified 11/12/22 10:33 dexamethasone Allergy Severe Swelling Verified 11/12/22 10:33 Iodinated Contrast Media Allergy Severe Rash/Hives Verified 11/12/22 10:33 [Iodinated Contrast Media - Oral and] naproxen [From Naprosyn] Allergy Severe Anaphylaxis Verified 11/12/22 10:33 adhesive Allergy Intermediate Itching Verified 11/12/22 10:33 bacitracin Allergy Intermediate Swelling Verified 11/12/22 10:33 [From Neosporin ([id number])] latex Allergy Unknown Itching Verified 11/12/22 10:33 neomycin Allergy Unknown Verified 11/12/22 10:33 [From Neosporin ([id number])] polymyxin B Allergy Unknown Verified 11/12/22 10:33 [From Neosporin ([id number])] prednisone Allergy Unknown Verified 11/12/22 10:33 amitriptyline HCl AdvReac Intermediate Unknown Verified 11/12/22 10:33 [From Elavil] Review of Systems ROS Statement: Those systems with pertinent positive or pertinent negative responses have been documented in the HPI. ROS Other: All systems not noted in ROS Statement are negative. Past Medical History Past Medical History: Coronary Artery Disease (CAD), Chest Pain / Angina, Diabetes Mellitus, Fibromyalgia, Hypertension, Mitral Valve Prolapse (MVP), Osteoarthritis (OA), Renal Disease, Thyroid Disorder Additional Past Medical History / Comment(s): hiatal hernia, barretts esophagus, mauricio barre. [facility]OMA. degenerative disc disease, osteoperosis. two heart stents. renal, stage 2 History of Any Multi-Drug Resistant Organisms: None Reported Past Surgical History: Section, Heart Catheterization With Stent, Hysterectomy, Tonsillectomy Additional Past Surgical History / Comment(s): lap eye surg Past Anesthesia/Blood Transfusion Reactions: No Reported Reaction Date of Last Stent Placement:: 07/26/18 Past Psychological History: Depression Smoking Status: Former smoker Past Alcohol Use History: None Reported, Rare Past Drug Use History: None Reported - Past Family History Father Family Medical History: Congestive Heart Failure (CHF) General Exam - General Exam Comments Initial Comments: GENERAL: Patient is well-developed and well-nourished. Patient is nontoxic and well- hydrated and is in mild distress. ENT: Neck is soft and supple. No significant lymphadenopathy is noted. Oropharynx is clear. Moist mucous membranes. Neck has full range of motion without elici ting any pain. EYES: The sclera were anicteric and conjunctiva were pink and moist. Extraocular m ovements were intact and pupils were equal round and reactive to light. Eyelids were unremarkable. PULMONARY: Unlabored respirations. Good breath sounds bilaterally. No audible rales rhonchi or wheezing was noted. CARDIOVASCULAR: There is a regular rate and rhythm without any murmurs gallops or rubs. Femoral pulses are equal bilaterally ABDOMEN: Soft and nontender with normal bowel sounds. No palpable organomegaly was noted. There is no palpable pulsatile mass. SKIN: Skin is clear with no lesions or rashes and otherwise unremarkable. NEUROLOGIC: Patient is alert and oriented x3. Cranial nerves II through XII are grossly intact. Motor and sensory are also intact. Normal speech, volume and content. Symmetrical smile. MUSCULOSKELETAL: Normal extremities with adequate strength and full range of motion. No lower extremity swelling or edema. No calf tenderness. LYMPHATICS: No significant lymphadenopathy is noted PSYCHIATRIC: Normal psychiatric evaluation. 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 Was pt. sent in by a medical professional or institution (, PA, MASTER SCHEDULER, urgent care, hospital, or penitentiary...) When possible be specific @ -No Did you speak to anyone other than the patient for history (EMS, parent, family, police, friend...)? What history was obtained from this source @ -No Did you review nursing and triage notes (agree or disagree)? Why? @ -I reviewed and agree with nursing and triage notes Were old charts reviewed (outside hosp., previous admission, EMS record, old EKG, old radiological studies, urgent care reports/EKG's, penitentiary records)? Report findings @ -I reviewed prior charts prior laboratory prior radiological studies Differential Diagnosis (chest pain, altered mental status, abdominal pain women, abdominal pain men, vaginal bleeding, weakness, fever, dyspnea, syncope, headache, dizziness, GI bleed, back pain, seizure, CVA, palpatations, mental health, musculoskeletal)? @ -Differential Chest Pain: Stable Angina, Unstable Angina, STEMI, NSTEMI Aortic Dissection, Pneumothorax, Musculoskeletal, Esophageal Spasm GERD, Cholecystitis, Pancreatitis, Zoster, this is not meant to be an all-inclusive list. EKG interpreted by me (3pts min.). @ -As above X-rays interpreted by me (1pt min.). @ -Essentially showed no acute abnormality. CT interpreted by me (1pt min.). @ -None done U/S interpreted by me (1pt. min.). @ -None done What testing was considered but not performed or refused? (CT, X-rays, U/S, labs)? Why? @ -None What meds were considered but not given or refused? Why? @ -None Did you discuss the management of the patient with other professionals (professionals i.e. , PA, MASTER SCHEDULER, lab, RT, psych nurse, social services specialist, shipwright supervisor, teacher, commanding officer homicide squad, piano case and bench assembler)? Give summary @ -I spoke with the [facility] hospitalist and they agreed to admit the patient and the patient wrote admitting orders Was smoking cessation discussed for >3mins.? @ -No Was critical care preformed (if so, how long)? @ -No Were there social determinants of health that impacted care today? How? (Homelessness, low income, unemployed, alcoholism, drug addiction, transportation, low edu. Level, literacy, decrease access to med. care, long term, rehab)? @ -No Was there de-escalation of care discussed even if they declined (Discuss DNR or withdrawal of care, Hospice)? DNR status @ -No What co-morbidities impacted this encounter? (DM, HTN, Smoking, COPD, CAD, Cancer, CVA, ARF, Chemo, Hep., AIDS, mental health diagnosis, sleep apnea, morbid obesity)? @ -None Was patient admitted / discharged? Hospital course, mention meds given and route, prescriptions, significant lab abnormalities, going to OR and other pertinent info. @ -Patient had no chest pain while in the emergency department but with all the risk factors and her clinical presentation I thought it was just started the patient stay in the hospital she was in agreement I spoke with the [facility] hospitalist and they agreed to admit the patient. I wrote admitting orders and consult to cardiology Undiagnosed new problem with uncertain prognosis? @ -No Drug Therapy requiring intensive monitoring for toxicity (Heparin, Nitro, Insulin, Cardizem)? @ -No Were any procedures done? @ -No Diagnosis/symptom? @ -Chest pain Acute, or Chronic, or Acute on Chronic? @ -Acute Uncomplicated (without systemic symptoms) or Complicated (systemic symptoms)? @ -Uncomplicated Side effects of treatment? @ -No Exacerbation, Progression, or Severe Exacerbation? @ -No Poses a threat to life or bodily function? How? (Chest pain, [place], [place], pneumonia, PE, COPD, DKA, ARF, appy, cholecystitis, CVA, Diverticulitis, Homicidal, Suicidal, threat to staff... and all critical care pts) @ -Yes this could lead to [place] which could lead to end organ dysfunction and/or - Lab Data Result diagrams: 11/12/22 11:11 11/12/22 11:11 Lab Results 11/12/22 11/12/22 11/12/22 Range/Units 11:11 11:11 11:11 WBC 8.0 (3.8-10.6) k/uL RBC 3.95 (3.80-5.40) m/uL Hgb 12.8 (11.4-16.0) gm/dL Hct 36.1 (34.0-46.0) % MCV 91.4 (80.0-100.0) fL MCH 32.3 (25.0-35.0) pg MCHC 35.3 (31.0-37.0) g/dL RDW 13.2 (11.5-15.5) % Plt Count 221 (150-450) k/uL MPV 7.6 Neutrophils % 71 % Lymphocytes % 18 % Monocytes % 7 % Eosinophils % 2 % Basophils % 0 % Neutrophils # 5.7 (1.3-7.7) k/uL Lymphocytes # 1.5 (1.0-4.8) k/uL Monocytes # 0.6 (0-1.0) k/uL Eosinophils # 0.1 (0-0.7) k/uL Basophils # 0.0 (0-0.2) k/uL PT 10.0 (9.0-12.0) sec INR 0.9 (<1.2) APTT 23.4 (22.0-30.0) sec Sodium 136 L (137-145) mmol/L Potassium 4.1 (3.5-5.1) mmol/L Chloride 103 (98-107) mmol/L Carbon Dioxide 24 (22-30) mmol/L Anion Gap 9 mmol/L BUN 20 H (7-17) mg/dL Creatinine 0.84 (0.52-1.04) mg/dL Est GFR (CKD-EPI)AfAm 83 (>60 ml/min/1.73 sqM) Est GFR (CKD-EPI)NonAf 72 (>60 ml/min/1.73 sqM) Glucose 158 H (74-99) mg/dL Calcium 9.8 (8.4-10.2) mg/dL Magnesium 2.2 (1.6-2.3) mg/dL Total Bilirubin 0.4 (0.2-1.3) mg/dL AST 27 (14-36) U/L ALT 22 (4-34) U/L Alkaline Phosphatase 102 (38-126) U/L Troponin I (0.000-0.034) ng/mL Total Protein 6.4 (6.3-8.2) g/dL Albumin 3.9 (3.5-5.0) g/dL 11/12/22 Range/Units 11:11 WBC (3.8-10.6) k/uL RBC (3.80-5.40) m/uL Hgb (11.4-16.0) gm/dL Hct (34.0-46.0) % MCV (80.0-100.0) fL MCH (25.0-35.0) pg MCHC (31.0-37.0) g/dL RDW (11.5-15.5) % Plt Count (150-450) k/uL MPV Neutrophils % % Lymphocytes % % Monocytes % % Eosinophils % % Basophils % % Neutrophils # (1.3-7.7) k/uL Lymphocytes # (1.0-4.8) k/uL Monocytes # (0-1.0) k/uL Eosinophils # (0-0.7) k/uL Basophils # (0-0.2) k/uL PT (9.0-12.0) sec INR (<1.2) APTT (22.0-30.0) sec Sodium (137-145) mmol/L Potassium (3.5-5.1) mmol/L Chloride (98-107) mmol/L Carbon Dioxide (22-30) mmol/L Anion Gap mmol/L BUN (7-17) mg/dL Creatinine (0.52-1.04) mg/dL Est GFR (CKD-EPI)AfAm (>60 ml/min/1.73 sqM) Est GFR (CKD-EPI)NonAf (>60 ml/min/1.73 sqM) Glucose (74-99) mg/dL Calcium (8.4-10.2) mg/dL Magnesium (1.6-2.3) mg/dL Total Bilirubin (0.2-1.3) mg/dL AST (14-36) U/L ALT (4-34) U/L Alkaline Phosphatase (38-126) U/L Troponin I <0.012 (0.000-0.034) ng/mL Total Protein (6.3-8.2) g/dL Albumin (3.5-5.0) g/dL Disposition Clinical Impression: Chest pain Disposition: ADMITTED IP TO THIS HOSP Referrals: Liz Marie [Primary Care Provider] - 1-2 days Time of Disposition: 12:46
[2022-11-12 11:25] LABS: Basophils % (A) 0 %; Eosinophils # (A) 0.1 k/uL (0-0.7); Eosinophils % (A) 2 %; HCT 36.1 % (34.0-46.0); HGB 12.8 gm/dL (11.4-16.0); Lymphocytes # (A) 1.5 k/uL (1.0-4.8); Lymphocytes % (A) 18 %; MCH 32.3 pg (25.0-35.0); MCHC 35.3 g/dL (31.0-37.0); MCV 91.4 fL (80.0-100.0); Mean Platelet Volume 7.6; Monocytes # (A) 0.6 k/uL (0-1.0); Monocytes % (A) 7 %; Neutrophils # (A) 5.7 k/uL (1.3-7.7); Neutrophils % (A) 71 %; Platelet Count 221 k/uL (150-450); RBC 3.95 m/uL (3.80-5.40); RDW 13.2 % (11.5-15.5)
--- NOTE | 2022-11-12 11:32 | XR ---
EXAMINATION TYPE: XR chest 2V DATE OF EXAM: 11/12/2022 11:28 AM COMPARISON: Chest radiographs from 05/14/2020 TECHNIQUE: XR chest 2V Frontal and lateral views of the chest. CLINICAL INDICATION:Female, 67 years old with history of Chest Pain; FINDINGS: Lungs/Pleura: There is no evidence of pleural effusion, focal consolidation, or pneumothorax. Pulmonary vascularity: Unremarkable. Heart/mediastinum: Cardiomediastinal silhouette is unremarkable. Atherosclerotic calcifications are seen in the aorta. Musculoskeletal: No acute osseous pathology. Mild degenerative changes of the thoracic spine. IMPRESSION: No acute cardiopulmonary disease/process.
[2022-11-12 11:45] LABS: ALT 22 U/L (4-34); AST 27 U/L (14-36); African American GFR (CKD) 83 (>60 ml/min/1.73 sqM); Albumin 3.9 g/dL (3.5-5.0); Alkaline Phosphatase 102 U/L (38-126); Anion Gap 9 mmol/L; Blood Urea Nitrogen 20 mg/dL (7-17); Calcium 9.8 mg/dL (8.4-10.2); Carbon Dioxide 24 mmol/L (22-30); Chloride 103 mmol/L (98-107); Glucose 158 mg/dL (74-99); INR 0.9 (<1.2); Magnesium 2.2 mg/dL (1.6-2.3); Non-African American GFR(CKD) 72 (>60 ml/min/1.73 sqM); Partial Thromboplastin Time 23.4 sec (22.0-30.0); Potassium 4.1 mmol/L (3.5-5.1); Sodium 136 mmol/L (137-145); Total Bilirubin 0.4 mg/dL (0.2-1.3); Total Protein 6.4 g/dL (6.3-8.2)
[2022-11-12] MEDS ORDERED: NITROGLYCERIN SL TABS 0.4 MG TAB SUBLINGUAL PRN (12:48)
[2022-11-12 16:17] LABS: Glucose,Whole Blood 103 mg/dL (70-110)
[2022-11-12] MEDS: NITROGLYCERIN OINT 1 INCH/GM PACKET TOPICAL SCH (17:24)
[2022-11-12 20:19] LABS: Glucose,Whole Blood 136 mg/dL (70-110)
[2022-11-12] MEDS ORDERED: DEXTROSE 50% SYRINGE 50 ML IVP PRN ×2 (21:03)
[2022-11-12] MEDS ORDERED: NON FORMULARY DRUG (Turmeric Root Extract [Turmeric] 500 MG Capsule) PO SCH (21:15)
[2022-11-12] MEDS: FERROUS SULFATE 325 MG TAB PO SCH (21:21)
[2022-11-12] MEDS: lisinopriL 10 MG TAB PO SCH (21:21)
[2022-11-12] MEDS: carvediloL 3.125 MG TAB PO SCH (21:21)
[2022-11-12] MEDS: ASCORBIC ACID 500 MG TAB PO SCH (21:21)
[2022-11-12] MEDS: CALCIUM CARBONATE 500 MG CHEWABLE PO PRN (21:22)
[2022-11-12] MEDS: ACETAMINOPHEN TAB 325 MG TAB PO PRN (21:22)
[2022-11-12] MEDS: LIDOCAINE 5% PATCH TOPICAL SCH (21:23)
[2022-11-12] MEDS: NYSTATIN 100,000 UNIT/GM POWD 15 GM TOPICAL SCH (22:05)
[2022-11-13] MEDS: NITROGLYCERIN OINT 1 INCH/GM PACKET TOPICAL SCH ×4 (04:54→16:29)
[2022-11-13 06:35] LABS: Glucose,Whole Blood 104 mg/dL (70-110)
[2022-11-13] MEDS: INSULIN ASPART (NovoLOG) 100 UNIT/ML VIAL SQ SCH ×4 (06:48→21:25)
[2022-11-13] MEDS: LEVOTHYROXINE 50 MCG TAB PO SCH (06:50)
[2022-11-13 08:38] VITALS: RESP 16
[2022-11-13] MEDS ORDERED: ASPIRIN 325 MG TAB PO SCH (09:00)
[2022-11-13] MEDS ORDERED: ASCORBIC ACID 500 MG TAB PO SCH (09:00)
[2022-11-13] MEDS: CLOPIDOGREL 75 MG TAB PO SCH (09:36)
[2022-11-13] MEDS: FAMOTIDINE 20 MG TAB PO SCH (09:36)
[2022-11-13] MEDS: ASCORBIC ACID 500 MG TAB PO SCH ×2 (09:36→21:37)
[2022-11-13] MEDS: carvediloL 3.125 MG TAB PO SCH ×2 (09:36→16:38)
[2022-11-13] MEDS: buPROPion XL 150 MG TAB.ER.24H PO SCH (09:36)
[2022-11-13] MEDS: MULTIVITAMINS, THERA 1 EACH TAB PO SCH (09:36)
[2022-11-13] MEDS: CHOLECALCIFEROL 125 MCG (5000 IU) TABLET PO SCH (09:36)
[2022-11-13] MEDS: FOLIC ACID-VIT B COMPLEX-VIT C 1 CAP PO SCH (09:36)
[2022-11-13] MEDS: ASPIRIN 81 MG PO SCH (09:36)
--- NOTE | 2022-11-13 09:58 | P.HPIM ---
History of Present Illness H&P Date: 11/12/22 Chief Complaint: Chest pain 67-year-old female, history of coronary artery disease status post stent placement, chest pain/angina, diabetes mellitus, hypertension, mitral valve prolapse, hypothyroidism and fibromyalgia, who presents with a 15 minute episode of chest pain radiated to her jaw. Patient has a past medical history significant for coronary artery disease high blood pressure high cholesterol and a 40 year smoking history which she has quit 2 years ago. Patient also strong family history. Patient denied any shortness of breath sweating or nausea from the chest pain. Patient states it was a heaviness however. Patient denies any leg swelling or calf tenderness. Patient denies any chest pain currently. Patient denies abdominal pain patient denies nausea vomiting diarrhea per patient denies lightheadedness dizziness. Vital completed immediately. Previous of 8.2, hemoglobin of 12.8 and platelet count of 221, sodium 136, potassium 4.1, BUN/creatinine of 20/0.8 and blood glucose of 158, troponin less than 0.012 EKG shows a sinus rhythm at 61 bpm KS interval is on an 80 QRSs 190 QTC is 408 QTC is 410 per patient's EKG shows no ST segment elevation or depression. Review of Systems REVIEW OF SYSTEMS: CONSTITUTIONAL: No fever, no malaise, no fatigue. HEENT: No recent visual problems or hearing problems. Denied any sore throat. CARDIOVASCULAR: No chest pain, orthopnea, PND, no palpitations, no syncope. PULMONARY: No shortness of breath, no cough, no hemoptysis. GASTROINTESTINAL: No diarrhea, no nausea, no vomiting, no abdominal pain. NEUROLOGICAL: No headaches, no weakness, no numbness. HEMATOLOGICAL: Denies any bleeding or petechiae. GENITOURINARY: Denies any burning micturition, frequency, or urgency. MUSCULOSKELETAL/RHEUMATOLOGICAL: Denies any joint pain, swelling, or any muscle pain. ENDOCRINE: Denies any polyuria or polydipsia. The rest of the 14-point review of systems is negative. Past Medical History Past Medical History: Coronary Artery Disease (CAD), Chest Pain / Angina, Diabetes Mellitus, Fibromyalgia, Hypertension, Mitral Valve Prolapse (MVP), Osteoarthritis (OA), Renal Disease, Thyroid Disorder Additional Past Medical History / Comment(s): hiatal hernia, barretts esophagus, mauricio barre. [facility]OMA. degenerative disc disease, osteoperosis. two heart stents. renal, stage 2 History of Any Multi-Drug Resistant Organisms: None Reported Past Surgical History: Section, Heart Catheterization With Stent, Hysterectomy, Tonsillectomy Additional Past Surgical History / Comment(s): lap eye surg Past Anesthesia/Blood Transfusion Reactions: No Reported Reaction Date of Last Stent Placement:: 07/26/18 Past Psychological History: Depression Smoking Status: Former smoker Past Alcohol Use History: None Reported, Rare Additional Past Alcohol Use History / Comment(s): pt. 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, has been sober for 5 years Past Drug Use History: None Reported - Past Family History Father Family Medical History: Congestive Heart Failure (CHF) Medications and Allergies Home Medications Medication Instructions Recorded Confirmed Type Ascorbic Acid [Vitamin C] 500 mg PO BID 09/05/13 11/12/22 History Levothyroxine Sodium [Synthroid] 50 mcg PO DAILY 07/23/18 11/12/22 History Lidocaine 5% Patch [Lidoderm] 1 patch TOPICAL HS 05/14/20 11/12/22 History Turmeric Root Extract [Turmeric] 1,500 mg PO HS 05/14/20 11/12/22 History Vitamin B Complex 1 cap PO DAILY 05/14/20 11/12/22 History Aspirin EC [Ecotrin Low Dose] 81 mg PO DAILY 11/12/22 11/12/22 History Cholecalciferol [Vitamin D3 (125 125 mcg PO DAILY 11/12/22 11/12/22 History Mcg = 5000 Iu)] Clopidogrel [Plavix] 75 mg PO DAILY 11/12/22 11/12/22 History Famotidine [Pepcid] 20 mg PO DAILY 11/12/22 11/12/22 History Ferrous Sulfate [Iron] 325 mg PO HS 11/12/22 11/12/22 History Levocetirizine Dihydrochloride 2.5 mg PO W/SUPPER 11/12/22 11/12/22 History [Xyzal] Multivitamins, Thera [Multivitamin 1 tab PO DAILY 11/12/22 11/12/22 History (formulary)] buPROPion XL [Wellbutrin XL] 150 mg PO DAILY 11/12/22 11/12/22 History carvediloL [Coreg] 3.125 mg PO BID 11/12/22 11/12/22 History lisinopriL [Zestril] 10 mg PO HS 11/12/22 11/12/22 History Allergies Allergy/AdvReac Type Severity Reaction Status Date / Time codeine Allergy Severe Nausea & Verified 11/12/22 13:25 Vomiting cortisone Allergy Severe Swelling Verified 11/12/22 13:25 dexamethasone Allergy Severe Swelling Verified 11/12/22 13:25 Iodinated Contrast Media Allergy Severe Rash/Hives Verified 11/12/22 13:25 [Iodinated Contrast Media - Oral and] naproxen [From Naprosyn] Allergy Severe Anaphylaxis Verified 11/12/22 13:25 adhesive Allergy Intermediate Itching Verified 11/12/22 13:25 bacitracin Allergy Intermediate Swelling Verified 11/12/22 13:25 [From Neosporin ([id number])] latex Allergy Unknown Itching Verified 11/12/22 13:25 neomycin Allergy Unknown Verified 11/12/22 13:25 [From Neosporin ([id number])] polymyxin B Allergy Unknown Verified 11/12/22 13:25 [From Neosporin ([id number])] prednisone Allergy Unknown Verified 11/12/22 13:25 amitriptyline HCl AdvReac Intermediate Unknown Verified 11/12/22 13:25 [From Elavil] Physical Exam Vitals: Vital Signs Temp Pulse Pulse Pulse Resp BP BP 11/13/22 08:00 79 16 170/85 11/13/22 07:38 11/13/22 04:00 97.8 F 58 L 136/82 11/13/22 00:00 98 F 65 136/80 11/12/22 20:00 98.1 F 64 11/12/22 15:45 98.2 F 63 18 156/86 11/12/22 15:00 63 18 152/80 11/12/22 14:00 60 18 155/82 11/12/22 13:00 62 18 11/12/22 12:00 64 18 11/12/22 11:17 63 18 173/102 11/12/22 10:37 63 18 11/12/22 10:29 98.1 F 63 18 162/82 BP Pulse Ox 11/13/22 08:00 97 11/13/22 07:38 97 11/13/22 04:00 97 11/13/22 00:00 99 11/12/22 20:00 152/65 97 11/12/22 15:45 98 11/12/22 15:00 96 11/12/22 14:00 98 11/12/22 13:00 11/12/22 12:00 11/12/22 11:17 97 11/12/22 10:37 11/12/22 10:29 99 Intake and Output 11/12/22 11/13/22 11/13/22 22:59 06:59 14:59 Intake Total 110 Balance 110 Intake: Oral 110 Other: Voiding Method Toilet Toilet # Voids 1 1 GENERAL: well-developed and well-nourished. Patient is nontoxic and well- hydrated and is in mild distress. Neck is soft and supple. No significant lymphadenopathy is noted. Oropharynx is clear. Moist mucous membranes. Neck has full range of motion without eliciting any pain. The sclera were anicteric and conjunctiva were pink and moist. Extraocular movements were intact and pupils were equal round and reactive to light. Eyelids were unremarkable. Unlabored respirations. Good breath sounds bilaterally. No audible rales rhonchi or wheezing was noted. CARDIOVASCULAR: regular rate and rhythm without any murmurs gallops or rubs. Femoral pulses are equal bilaterally ABDOMEN:Soft and nontender with normal bowel sounds. No palpable organomegaly was noted. There is no palpable pulsatile mass. SKIN: clear with no lesions or rashes and otherwise unremarkable. NEUROLOGIC: alert and oriented x3. Cranial nerves II through XII are grossly intact. Motor and sensory are also intact. Normal speech, volume and content. Symmetrical smile. MUSCULOSKELETAL: Normal extremities with adequate strength and full range of motion. No lower extremity swelling or edema. No calf tenderness. LYMPHATICS: No significant lymphadenopathy is noted PSYCHIATRIC: Normal psychiatric evaluation. Results CBC & Chem 7: 11/12/22 11:11 11/12/22 11:11 Labs: Abnormal Lab Results - Last 24 Hours (Table) 11/12/22 11/12/22 Range/Units 11:11 20:18 Sodium 136 L (137-145) mmol/L BUN 20 H (7-17) mg/dL Glucose 158 H (74-99) mg/dL POC Glucose (mg/dL) 136 H (70-110) mg/dL Assessment and Plan Assessment: 1. Chest pain; rule out acute coronary syndrome - Patient does have history of coronary artery disease with cardiac catheterization and status post stent placement - EKG remains unremarkable with no significant ST or T-wave changes - We will monitor EKG and trend troponin - Patient remains on aspirin, Coreg and Plavix and is admitted for further cardiac evaluation - Recommend 2-D echo 2. Hypertension; continue with home dose of Coreg 3.125 mg twice a day, deanna nopril 10 mg by mouth daily at bedtime 3. Hyperlipidemia; levothyroxin 50 MCG daily 4. Diabetes mellitus type 2; currently not on any medications; blood glucose elevated at 157 upon admission; we will monitor Accu-Cheks Before meals and at bedtime with insulin sliding scale 5. Depression; continue with home dose of Wellbutrin DVT prophylaxis; SCDs/subcu heparin CODE STATUS; full code
--- NOTE | 2022-11-13 10:15 | P.CRDCN ---
History of Present Illness Consult date: 11/13/22 Consult reason: chest pain History of present illness: History of present illness: This is a 67-year-old female patient of Dr. Sterling with past mental history of coronary artery disease with prior stenting of the LAD in May of this year done at [facility], history of chronic kidney disease, diet-controlled diabetes, hypertension, dyslipidemia. We have been asked to evaluate the patient for chest pain. Patient states that yesterday she developed chest pain and pain in her jaw that was gone by the time EMS arrived. She states she relaxed her self and that's what caused it to go away. She did not take any medications that caused the pain to resolve. She is currently without chest pain. Patient is scheduled for stress test in the office on December 16. EKG sinus rhythm with no acute ST changes. Chest x-ray: No acute process CBC is unremarkable. Troponin negative 3. Sodium 136, potassium 4.1, BUN 20 creatinine 0.84. Blood sugar 158, liver function tests are normal. Magnesium 2.2. Home cardiac medications: Aspirin 81 mg daily, Coreg 3.125 mg twice daily, Plavix 75 mg daily, ferrous sulfate 325 mg daily, levothyroxine 50 g daily, lisinopril 10 mg at bedtime. Review Of Systems: At the time of my evaluation: Constitutional: No fever, no chills. No weakness, fatigue or lethargy. EENT: No headache. No dizziness. Lungs: No shortness of breath, cough, no sputum production. No wheezing. Cardiovascular: No chest pain, no lower extremity edema. No palpitations. No paroxysmal nocturnal dyspnea. No orthopnea. No lightheadedness or dizziness. No syncopal episodes. Abdominal: No abdominal pain. No nausea, vomiting. Musculoskeletal: No myalgias. No muscle weakness, no frequent falls. Integumentary: No wounds. No rash. No unusual bruising. Neurologic: No aphasia. No facial droop. No change in mentation. Physical examination: Gen: This is a 67-year-old female. She is resting in bed appears to be comfortable and in no acute distress VS: reviewed HEENT: Head is atraumatic, normocephalic. Pupils equal, round. Sclerae is anicteric. NECK: Supple. No JVD. . LUNGS: Clear to auscultation. No wheezes or rhonchi. No intercostal retractions. HEART: Regular rate and rhythm. Systolic murmur. No chest wall tenderness ABDOMEN: Soft No tenderness. EXTREMITIES: No pedal edema. No calf tenderness. NEUROLOGICAL: Patient is awake, alert and oriented x3. Assessment: Chest pain, acute coronary syndrome ruled out History of coronary artery disease with prior stenting of the LAD Hypertension Dyslipidemia History of non-SVT Chronic kidney disease stage III Intolerance to multiple statins History of smoking Borderline diabetes Plan: Resume patient's home cardiac medications Obtain 2-D echocardiogram and Doppler study to assess cardiac structure and function Further recommendations to follow based upon clinical course Thank you kindly for this consultation. Nurse practitioner note has been reviewed, I agree with documented findings and plan of care. Patient was seen and examined. Past Medical History Past Medical History: Coronary Artery Disease (CAD), Chest Pain / Angina, Diabetes Mellitus, Fibromyalgia, Hypertension, Mitral Valve Prolapse (MVP), Osteoarthritis (OA), Renal Disease, Thyroid Disorder Additional Past Medical History / Comment(s): hiatal hernia, barretts esophagus, mauricio barre. [facility]OMA. degenerative disc disease, osteoperosis. two heart stents. renal, stage 2 History of Any Multi-Drug Resistant Organisms: None Reported Past Surgical History: Section, Heart Catheterization With Stent, Hysterectomy, Tonsillectomy Additional Past Surgical History / Comment(s): lap eye surg Past Anesthesia/Blood Transfusion Reactions: No Reported Reaction Date of Last Stent Placement:: 07/26/18 Past Psychological History: Depression Smoking Status: Former smoker Past Alcohol Use History: None Reported, Rare Additional Past Alcohol Use History / Comment(s): pt. 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, has been sober for 5 years Past Drug Use History: None Reported - Past Family History Father Family Medical History: Congestive Heart Failure (CHF) Medications and Allergies Home Medications Medication Instructions Recorded Confirmed Type Ascorbic Acid [Vitamin C] 500 mg PO BID 09/05/13 11/12/22 History Levothyroxine Sodium [Synthroid] 50 mcg PO DAILY 07/23/18 11/12/22 History Lidocaine 5% Patch [Lidoderm] 1 patch TOPICAL HS 05/14/20 11/12/22 History Turmeric Root Extract [Turmeric] 1,500 mg PO HS 05/14/20 11/12/22 History Vitamin B Complex 1 cap PO DAILY 05/14/20 11/12/22 History Aspirin EC [Ecotrin Low Dose] 81 mg PO DAILY 11/12/22 11/12/22 History Cholecalciferol [Vitamin D3 (125 125 mcg PO DAILY 11/12/22 11/12/22 History Mcg = 5000 Iu)] Clopidogrel [Plavix] 75 mg PO DAILY 11/12/22 11/12/22 History Famotidine [Pepcid] 20 mg PO DAILY 11/12/22 11/12/22 History Ferrous Sulfate [Iron] 325 mg PO HS 11/12/22 11/12/22 History Levocetirizine Dihydrochloride 2.5 mg PO W/SUPPER 11/12/22 11/12/22 History [Xyzal] Multivitamins, Thera [Multivitamin 1 tab PO DAILY 11/12/22 11/12/22 History (formulary)] buPROPion XL [Wellbutrin XL] 150 mg PO DAILY 11/12/22 11/12/22 History carvediloL [Coreg] 3.125 mg PO BID 11/12/22 11/12/22 History lisinopriL [Zestril] 10 mg PO HS 11/12/22 11/12/22 History Allergies Allergy/AdvReac Type Severity Reaction Status Date / Time codeine Allergy Severe Nausea & Verified 11/12/22 13:25 Vomiting cortisone Allergy Severe Swelling Verified 11/12/22 13:25 dexamethasone Allergy Severe Swelling Verified 11/12/22 13:25 Iodinated Contrast Media Allergy Severe Rash/Hives Verified 11/12/22 13:25 [Iodinated Contrast Media - Oral and] naproxen [From Naprosyn] Allergy Severe Anaphylaxis Verified 11/12/22 13:25 adhesive Allergy Intermediate Itching Verified 11/12/22 13:25 bacitracin Allergy Intermediate Swelling Verified 11/12/22 13:25 [From Neosporin ([id number])] latex Allergy Unknown Itching Verified 11/12/22 13:25 neomycin Allergy Unknown Verified 11/12/22 13:25 [From Neosporin ([id number])] polymyxin B Allergy Unknown Verified 11/12/22 13:25 [From Neosporin ([id number])] prednisone Allergy Unknown Verified 11/12/22 13:25 amitriptyline HCl AdvReac Intermediate Unknown Verified 11/12/22 13:25 [From [facility]] Physical Exam Vitals: Vital Signs Temp Pulse Pulse Pulse Resp BP BP 11/13/22 08:00 79 16 170/85 11/13/22 07:38 11/13/22 04:00 97.8 F 58 L 136/82 11/13/22 00:00 98 F 65 136/80 11/12/22 20:00 98.1 F 64 11/12/22 15:45 98.2 F 63 18 156/86 11/12/22 15:00 63 18 152/80 11/12/22 14:00 60 18 155/82 11/12/22 13:00 62 18 11/12/22 12:00 64 18 11/12/22 11:17 63 18 173/102 11/12/22 10:37 63 18 11/12/22 10:29 98.1 F 63 18 162/82 BP Pulse Ox 11/13/22 08:00 97 11/13/22 07:38 97 11/13/22 04:00 97 11/13/22 00:00 99 11/12/22 20:00 152/65 97 11/12/22 15:45 98 11/12/22 15:00 96 11/12/22 14:00 98 11/12/22 13:00 11/12/22 12:00 11/12/22 11:17 97 11/12/22 10:37 11/12/22 10:29 99 Intake and Output 11/12/22 11/13/22 11/13/22 22:59 06:59 14:59 Intake Total 110 Balance 110 Intake: Oral 110 Other: Voiding Method Toilet Toilet # Voids 1 1 Results 11/12/22 11:11 11/12/22 11:11 Cardiac Enzymes 11/12/22 11/12/22 11/12/22 Range/Units 11:11 11:11 14:17 AST 27 (14-36) U/L Troponin I <0.012 <0.012 (0.000-0.034) ng/mL 11/12/22 Range/Units 16:58 AST (14-36) U/L Troponin I <0.012 (0.000-0.034) ng/mL Coagulation 11/12/22 Range/Units 11:11 PT 10.0 (9.0-12.0) sec APTT 23.4 (22.0-30.0) sec CBC 11/12/22 Range/Units 11:11 WBC 8.0 (3.8-10.6) k/uL RBC 3.95 (3.80-5.40) m/uL Hgb 12.8 (11.4-16.0) gm/dL Hct 36.1 (34.0-46.0) % Plt Count 221 (150-450) k/uL Comprehensive Metabolic Panel 11/12/22 Range/Units 11:11 Sodium 136 L (137-145) mmol/L Potassium 4.1 (3.5-5.1) mmol/L Chloride 103 (98-107) mmol/L Carbon Dioxide 24 (22-30) mmol/L BUN 20 H (7-17) mg/dL Creatinine 0.84 (0.52-1.04) mg/dL Glucose 158 H (74-99) mg/dL Calcium 9.8 (8.4-10.2) mg/dL AST 27 (14-36) U/L ALT 22 (4-34) U/L Alkaline Phosphatase 102 (38-126) U/L Total Protein 6.4 (6.3-8.2) g/dL Albumin 3.9 (3.5-5.0) g/dL Current Medications Generic Name Dose Route Start Last Admin Trade Name Freq PRN Reason Stop Dose Admin Acetaminophen 650 mg 11/12/22 21:03 11/12/22 21:22 Acetaminophen Tab 325 Mg Tab PO 650 mg Q6HR PRN Administration Fever and/ or Pain Ascorbic Acid 500 mg 11/12/22 21:11 11/12/22 21:21 Ascorbic Acid 500 Mg Tab PO 500 mg BID KEELY Administration Aspirin 81 mg 11/13/22 09:00 Aspirin 81 Mg PO DAILY [facility] Bupropion HCl 150 mg 11/13/22 09:00 Bupropion Xl 150 Mg Tab.Er.24h PO DAILY [facility] Calcium Carbonate/Glycine 500 mg 11/12/22 21:03 11/12/22 21:22 Calcium Carbonate 500 Mg Chewable PO 500 mg QID PRN Administration Heartburn Carvedilol 3.125 mg 11/12/22 21:15 11/12/22 21:21 Carvedilol 3.125 Mg Tab PO 3.125 mg BID-W/MEALS [facility] Administration Cholecalciferol 125 mcg 11/13/22 09:00 Cholecalciferol 125 Mcg (5000 Iu) Tablet PO DAILY [facility] Clopidogrel Bisulfate 75 mg 11/13/22 09:00 Clopidogrel 75 Mg Tab PO DAILY [facility] Dextrose/Water 25 ml 11/12/22 21:03 Dextrose 50% Syringe 50 Ml IVP PER PROTOCOL PRN Hypoglycemia Protocol Dextrose/Water 50 ml 11/12/22 21:03 Dextrose 50% Syringe 50 Ml IVP PER PROTOCOL PRN Hypoglycemia Protocol Famotidine 20 mg 11/13/22 09:00 Famotidine 20 Mg Tab PO DAILY [facility] Ferrous Sulfate 325 mg 11/12/22 21:15 11/12/22 21:21 Ferrous Sulfate 325 Mg Tab PO 325 mg HS [facility] Administration Insulin Aspart 0 unit 11/13/22 07:30 11/13/22 06:48 Insulin Aspart (Novolog) 100 Unit/Ml Vial SQ Not Given ACHS [facility] Protocol Levothyroxine Sodium 50 mcg 11/13/22 07:30 11/13/22 06:50 Levothyroxine 50 Mcg Tab PO 50 mcg DAILY@0730 [facility] Administration Lidocaine 1 patch 11/12/22 21:30 11/12/22 21:23 Lidocaine 5% Patch TOPICAL 1 patch HS [facility] Administration Protocol Lisinopril 10 mg 11/12/22 21:15 11/12/22 21:21 Lisinopril 10 Mg Tab PO 10 mg HS [facility] Administration Multivit/Ca Carb/B Cmplx/FA/Prenat 1 each 11/13/22 09:00 Folic Acid-Vit B Complex-Vit C 1 Cap PO DAILY [facility] Multivitamins 1 each 11/13/22 09:00 Multivitamins, Thera 1 Each Tab PO DAILY [facility] Nitroglycerin 0.4 mg 11/12/22 12:48 Nitroglycerin Sl Tabs 0.4 Mg Tab SUBLINGUAL Q5M PRN Chest Pain Nitroglycerin 1 inch 11/12/22 18:00 11/13/22 04:54 Nitroglycerin Oint 1 Inch/Gm Packet TOPICAL Not Given Q6HR [facility] Nystatin 1 applic 11/12/22 21:15 11/12/22 22:05 Nystatin 100,000 Unit/Gm Powd 15 Gm TOPICAL 1 applic BID [facility] Administration Protocol Intake and Output 11/12/22 11/13/22 11/13/22 22:59 06:59 14:59 Intake Total 110 Balance 110 Intake: Oral 110 Other: Voiding Method Toilet Toilet # Voids 1 1 11/12/22 11:11 11/12/22 11:11
[2022-11-13 11:18] LABS: Glucose,Whole Blood 138 mg/dL (70-110)
[2022-11-13 11:34] LABS: Basophils % (A) 1 %; Eosinophils # (A) 0.1 k/uL (0-0.7); Eosinophils % (A) 2 %; HCT 36.9 % (34.0-46.0); HGB 12.7 gm/dL (11.4-16.0); Lymphocytes # (A) 1.6 k/uL (1.0-4.8); Lymphocytes % (A) 32 %; MCH 31.6 pg (25.0-35.0); MCHC 34.3 g/dL (31.0-37.0); Mean Platelet Volume 8.2; Monocytes # (A) 0.4 k/uL (0-1.0); Monocytes % (A) 8 %; Neutrophils # (A) 2.7 k/uL (1.3-7.7); Neutrophils % (A) 55 %; Platelet Count 215 k/uL (150-450); RBC 4.02 m/uL (3.80-5.40); RDW 13.3 % (11.5-15.5)
[2022-11-13 11:47] LABS: African American GFR (CKD) 80 (>60 ml/min/1.73 sqM); Anion Gap 7 mmol/L; Blood Urea Nitrogen 22 mg/dL (7-17); Calcium 9.2 mg/dL (8.4-10.2); Carbon Dioxide 26 mmol/L (22-30); Chloride 106 mmol/L (98-107); Glucose 90 mg/dL (74-99); Non-African American GFR(CKD) 69 (>60 ml/min/1.73 sqM); Potassium 4.5 mmol/L (3.5-5.1); Sodium 139 mmol/L (137-145)
[2022-11-13 16:26] LABS: Glucose,Whole Blood 172 mg/dL (70-110)
[2022-11-13] MEDS: NYSTATIN 100,000 UNIT/GM POWD 15 GM TOPICAL SCH ×2 (16:36→21:26)
--- NOTE | 2022-11-13 16:56 | CA ---
Transthoracic Echo Report Name: Joan Laird Age: 67 Gender: F : 1955 Exam Date: 11/13/2022 16:29 Exam Location: [place] [facility] Ht (in): 62 Wt (lb): 198 Ordering Physician: Radha Marvin Attending/Referring Phys: Information Technology Intern Sara [place] [facility] Procedure CPT: Indications: LVF Cardiac Hx: Technical Quality: Contrast 1: Total Dose (mL): Contrast 2: Total Dose (mL): MEASUREMENTS (Male / Female) Normal Values 2D ECHO LV Diastolic Diameter PLAX 5.3 cm 4.2 - 5.9 / 3.9 - 5.3 cm LV Systolic Diameter PLAX 3.5 cm IVS Diastolic Thickness 1.0 cm 0.6 - 1.0 / 0.6 - 0.9 cm LVPW Diastolic Thickness 1.0 cm 0.6 - 1.0 / 0.6 - 0.9 cm LV Relative Wall Thickness 0.4 LVOT Diameter 2.0 cm Ascending Aorta Diameter 2.9 cm M-MODE Aortic Root Diameter MM 2.4 cm LA Systolic Diameter MM 3.3 cm LA Ao Ratio MM 1.4 AV Cusp Separation MM 1.8 cm DOPPLER AV Peak Velocity 163.1 cm/s AV Peak Gradient 10.6 mmHg AV Mean Velocity 103.4 cm/s AV Mean Gradient 5.0 mmHg AV Velocity Time Integral 33.5 cm LVOT Peak Velocity 84.4 cm/s LVOT Peak Gradient 2.9 mmHg LVOT Velocity Time Integral 19.2 cm LVOT Stroke Volume 60.3 cm??? LVOT Stroke Volume Index 31.7 ml/m??? AV Area Cont Eq vti 1.8 cm??? AV Area Cont Eq pk 1.6 cm??? Mitral E Point Velocity 69.4 cm/s Mitral A Point Velocity 102.8 cm/s Mitral E to A Ratio 0.7 MV Deceleration Time 278.9 ms LV E' Lateral Velocity 5.7 cm/s Mitral E to LV E' Lateral Ratio 12.2 LV E' Septal Velocity 3.8 cm/s Mitral E to LV E' Septal Ratio 18.3 Right Atrial Pressure 8.0 mmHg FINDINGS Left Ventricle Mildly increased septal wall thickness. Mildly increased posterior wall thickness. Left ventricular cavity size at the upper limits of normal. No obvious regional wall motion abnormalities. Left ventricular ejection fraction is estimated at 55-60%. Right Ventricle Severely increased basal right ventricular diameter. Unable to estimate the right ventricular systolic pressure. Right Atrium Normal right atrial size. Left Atrium Mildly increased left atrial area. Mitral Valve Structurally normal mitral valve. Trace mitral regurgitation. Aortic Valve Trileaflet aortic valve. Aortic valve sclerosis. No aortic regurgitation. Tricuspid Valve Structurally normal tricuspid valve. No tricuspid regurgitation. Pulmonic Valve Structurally normal pulmonic valve. Mild pulmonic regurgitation. Pericardium No pericardial effusion. Aorta Normal size aortic root and proximal ascending aorta. CONCLUSIONS Normal LV systolic function dilated right ventricle Previewed by: Dr. Zach Strickland MD (Electronically Signed) Final Date: 13 November 2022 16:55
[2022-11-13 19:57] LABS: Glucose,Whole Blood 144 mg/dL (70-110)
[2022-11-13] MEDS ORDERED: LIDOCAINE 5% PATCH TOPICAL SCH (21:00)
[2022-11-13] MEDS: lisinopriL 10 MG TAB PO SCH (21:36)
[2022-11-13] MEDS: FERROUS SULFATE 325 MG TAB PO SCH (21:37)
[2022-11-13] MEDS: CALCIUM CARBONATE 500 MG CHEWABLE PO PRN (21:37)
[2022-11-14] MEDS: NITROGLYCERIN OINT 1 INCH/GM PACKET TOPICAL SCH ×4 (00:53→17:02)
[2022-11-14] MEDS: LIDOCAINE 5% PATCH TOPICAL SCH (02:08)
[2022-11-14] MEDS: INSULIN ASPART (NovoLOG) 100 UNIT/ML VIAL SQ SCH ×4 (06:19→21:00)
[2022-11-14 06:25] LABS: Glucose,Whole Blood 105 mg/dL (70-110)
[2022-11-14] MEDS: LEVOTHYROXINE 50 MCG TAB PO SCH (06:27)
[2022-11-14 07:48] LABS: African American GFR (CKD) 71 (>60 ml/min/1.73 sqM); Anion Gap 5 mmol/L; Blood Urea Nitrogen 25 mg/dL (7-17); Calcium 10.2 mg/dL (8.4-10.2); Carbon Dioxide 29 mmol/L (22-30); Chloride 104 mmol/L (98-107); Glucose 110 mg/dL (74-99); Non-African American GFR(CKD) 61 (>60 ml/min/1.73 sqM); Potassium 4.5 mmol/L (3.5-5.1); Sodium 138 mmol/L (137-145)
[2022-11-14 07:56] LABS: Chol/HDL Ratio 2.56 Ratio; LDL Cholesterol,Calculated 59.3 mg/dL (0.0-131.0)
[2022-11-14] MEDS: MULTIVITAMINS, THERA 1 EACH TAB PO SCH (09:03)
[2022-11-14] MEDS: ASPIRIN 81 MG PO SCH (09:03)
[2022-11-14] MEDS: CLOPIDOGREL 75 MG TAB PO SCH (09:03)
[2022-11-14] MEDS: FOLIC ACID-VIT B COMPLEX-VIT C 1 CAP PO SCH (09:04)
[2022-11-14] MEDS: carvediloL 3.125 MG TAB PO SCH ×2 (09:04→17:06)
[2022-11-14] MEDS: FAMOTIDINE 20 MG TAB PO SCH (09:04)
[2022-11-14] MEDS: NYSTATIN 100,000 UNIT/GM POWD 15 GM TOPICAL SCH ×2 (09:04→21:17)
[2022-11-14] MEDS: ASCORBIC ACID 500 MG TAB PO SCH ×2 (09:04→21:17)
[2022-11-14] MEDS: buPROPion XL 150 MG TAB.ER.24H PO SCH (09:04)
[2022-11-14] MEDS: CHOLECALCIFEROL 125 MCG (5000 IU) TABLET PO SCH (09:04)
[2022-11-14 11:55] LABS: Glucose,Whole Blood 108 mg/dL (70-110)
--- NOTE | 2022-11-14 13:08 | PN ---
PROGRESS NOTE SUBJECTIVE: A 67-year-old lady, has been admitted to hospital with chest pain and ruled out for myocardial infarction. She is doing well and is free of symptoms. PHYSICAL EXAMINATION: GENERAL: Comfortable at rest. VITAL SIGNS: Stable. NECK: There is no jugular venous distention. CHEST: Reveals good air entry bilaterally. HEART: Reveals first and second heart sounds. No gallop. EXTREMITIES: Do not reveal any edema. Peripheral pulses are felt. ASSESSMENT: Chest pain, rule out ischemia. PLAN: I will schedule her for a dobutamine stress echo tomorrow, and if this is normal, we should be able to discharge her home and she has an appointment to see a neurosurgeon for a second opinion tomorrow; hopefully, she can keep that appointment. [id number] / IJN: [id number] /
[2022-11-14 16:49] LABS: Glucose,Whole Blood 94 mg/dL (70-110)
--- NOTE | 2022-11-14 17:03 | P.PN ---
Subjective Progress Note Date: 11/13/22 67-year-old female, history of coronary artery disease status post stent placement, chest pain/angina, diabetes mellitus, hypertension, mitral valve prolapse, hypothyroidism and fibromyalgia, who presents with a 15 minute episode of chest pain radiated to her jaw. Patient has a past medical history signi ficant for coronary artery disease high blood pressure high cholesterol and a 40 year smoking history which she has quit 2 years ago. Patient also strong family history. Patient denied any shortness of breath sweating or nausea from the chest pain. Patient states it was a heaviness however. Patient denies any leg swelling or calf tenderness. Patient denies any chest pain currently. Patient denies abdominal pain patient denies nausea vomiting diarrhea per patient denies lightheadedness dizziness. Vital completed immediately. Previous of 8.2, hemoglobin of 12.8 and platelet count of 221, sodium 136, potassium 4.1, BUN/creatinine of 20/0.8 and blood glucose of 158, troponin less than 0.012 EKG shows a sinus rhythm at 61 bpm ND interval is on an 80 QRSs 190 QTC is 408 QTC is 410 per patient's EKG shows no ST segment elevation or depression. Objective - Vital Signs Vital signs: Vital Signs Temp 97.8 F 11/13/22 04:00 Pulse 79 11/13/22 08:00 Resp 16 11/13/22 08:00 BP 170/85 11/13/22 08:00 Pulse Ox 97 11/13/22 08:00 FiO2 Intake & Output 11/12/22 11/13/22 11/13/22 18:59 06:59 18:59 Intake Total 110 Balance 110 Weight 89.811 kg Intake: Oral 110 Other: Voiding Method Toilet # Voids 1 - Exam GENERAL: well-developed and well-nourished. Patient is nontoxic and well- hydrated and is in mild distress. Neck is soft and supple. No significant lymphadenopathy is noted. Oropharynx is clear. Moist mucous membranes. Neck has full range of motion without eliciting any pain. The sclera were anicteric and conjunctiva were pink and moist. Extraocular movements were intact and pupils were equal round and reactive to light. Eyelids were unremarkable. Unlabored respirations. Good breath sounds bilaterally. No audible rales rhonchi or wheezing was noted. CARDIOVASCULAR: regular rate and rhythm without any murmurs gallops or rubs. Femoral pulses are equal bilaterally ABDOMEN:Soft and nontender with normal bowel sounds. No palpable organomegaly was noted. There is no palpable pulsatile mass. SKIN: clear with no lesions or rashes and otherwise unremarkable. NEUROLOGIC: alert and oriented x3. Cranial nerves II through XII are grossly intact. Motor and sensory are also intact. Normal speech, volume and content. Symmetrical smile. MUSCULOSKELETAL: Normal extremities with adequate strength and full range of motion. No lower extremity swelling or edema. No calf tenderness. LYMPHATICS: No significant lymphadenopathy is noted PSYCHIATRIC: Normal psychiatric evaluation. - Labs CBC & Chem 7: 11/13/22 12:00 11/14/22 07:10 Labs: Abnormal Lab Results - Last 24 Hours (Table) 11/12/22 11/12/22 Range/Units 11:11 20:18 Sodium 136 L (137-145) mmol/L BUN 20 H (7-17) mg/dL Glucose 158 H (74-99) mg/dL POC Glucose (mg/dL) 136 H (70-110) mg/dL Assessment and Plan Assessment: 1. Chest pain; rule out acute coronary syndrome - Patient does have history of coronary artery disease with cardiac catheterization and status post stent placement - EKG remains unremarkable with no significant ST or T-wave changes - We will monitor EKG and trend troponin - Patient remains on aspirin, Coreg and Plavix and is admitted for further cardiac evaluation - Recommend 2-D echo 2. Hypertension; continue with home dose of Coreg 3.125 mg twice a day, lisinop ril 10 mg by mouth daily at bedtime 3. Hyperlipidemia; levothyroxin 50 MCG daily 4. Diabetes mellitus type 2; currently not on any medications; blood glucose elevated at 157 upon admission; we will monitor Accu-Cheks Before meals and at bedtime with insulin sliding scale 5. Depression; continue with home dose of Wellbutrin DVT prophylaxis; SCDs/subcu heparin CODE STATUS; full code
--- NOTE | 2022-11-14 17:04 | P.PN ---
Subjective Progress Note Date: 11/14/22 67-year-old female, history of coronary artery disease status post stent placement, chest pain/angina, diabetes mellitus, hypertension, mitral valve prolapse, hypothyroidism and fibromyalgia, who presents with a 15 minute episode of chest pain radiated to her jaw. Patient has a past medical history signi ficant for coronary artery disease high blood pressure high cholesterol and a 40 year smoking history which she has quit 2 years ago. Patient also strong family history. Patient denied any shortness of breath sweating or nausea from the chest pain. Patient states it was a heaviness however. Patient denies any leg swelling or calf tenderness. Patient denies any chest pain currently. Patient denies abdominal pain patient denies nausea vomiting diarrhea per patient denies lightheadedness dizziness. Vital completed immediately. Previous of 8.2, hemoglobin of 12.8 and platelet count of 221, sodium 136, potassium 4.1, BUN/creatinine of 20/0.8 and blood glucose of 158, troponin less than 0.012 EKG shows a sinus rhythm at 61 bpm SD interval is on an 80 QRSs 190 QTC is 408 QTC is 410 per patient's EKG shows no ST segment elevation or depression. -- Patient has been ruled out for myocardial infarction; remains symptom-free; vital signs are reviewed and are stable; patient has been evaluated by cardiology and is recommending either scheduled for dobutamine stress echo for tomorrow with plans to discharge patient home if dobutamine stress test is negative Objective - Vital Signs Vital signs: Vital Signs Temp 97.9 F 11/14/22 04:00 Pulse 71 11/14/22 12:00 Resp 16 11/14/22 12:00 BP 172/80 11/14/22 12:00 Pulse Ox 99 11/14/22 12:00 FiO2 Intake & Output 11/13/22 11/14/22 11/14/22 18:59 06:59 18:59 Intake Total 350 10 Balance 350 10 Intake: IV 10 Invasive Line 2 10 Oral 350 Other: Voiding Method Toilet Toilet Toilet # Voids 3 1 - Exam GENERAL: well-developed and well-nourished. Patient is nontoxic and well- hydrated and is in mild distress. Neck is soft and supple. No significant lymphadenopathy is noted. Oropharynx is clear. Moist mucous membranes. Neck has full range of motion without martha citing any pain. The sclera were anicteric and conjunctiva were pink and moist. Extraocular movements were intact and pupils were equal round and reactive to light. Eyelids were unremarkable. Unlabored respirations. Good breath sounds bilaterally. No audible rales rhonchi or wheezing was noted. CARDIOVASCULAR: regular rate and rhythm without any murmurs gallops or rubs. Femoral pulses are equal bilaterally ABDOMEN:Soft and nontender with normal bowel sounds. No palpable organomegaly was noted. There is no palpable pulsatile mass. SKIN: clear with no lesions or rashes and otherwise unremarkable. NEUROLOGIC: alert and oriented x3. Cranial nerves II through XII are grossly intact. Motor and sensory are also intact. Normal speech, volume and content. Symmetrical smile. MUSCULOSKELETAL: Normal extremities with adequate strength and full range of motion. No lower extremity swelling or edema. No calf tenderness. LYMPHATICS: No significant lymphadenopathy is noted PSYCHIATRIC: Normal psychiatric evaluation. - Labs CBC & Chem 7: 11/13/22 12:00 11/14/22 07:10 Labs: Abnormal Lab Results - Last 24 Hours (Table) 11/13/22 11/13/22 11/13/22 Range/Units 09:08 16:25 19:56 BUN (7-17) mg/dL Glucose (74-99) mg/dL POC Glucose (mg/dL) 172 H 144 H (70-110) mg/dL Hemoglobin A1c 6.4 H (<=6.0) % 11/14/22 Range/Units 07:10 BUN 25 H (7-17) mg/dL Glucose 110 H (74-99) mg/dL POC Glucose (mg/dL) (70-110) mg/dL Hemoglobin A1c (<=6.0) % Assessment and Plan Assessment: 1. Chest pain; rule out acute coronary syndrome - Patient does have history of coronary artery disease with cardiac catheterization and status post stent placement - EKG remains unremarkable with no significant ST or T-wave changes - We will monitor EKG and trend troponin - Patient remains on aspirin, Coreg and Plavix and is admitted for further cardiac evaluation - Recommend 2-D echo 2. Hypertension; continue with home dose of Coreg 3.125 mg twice a day, lisinopril 10 mg by mouth daily at bedtime 3. Hyperlipidemia; levothyroxin 50 MCG daily 4. Diabetes mellitus type 2; currently not on any medications; blood glucose elevated at 157 upon admission; we will monitor Accu-Cheks Before meals and at bedtime with insulin sliding scale 5. Depression; continue with home dose of Wellbutrin DVT prophylaxis; SCDs/subcu heparin CODE STATUS; full code
[2022-11-14 20:22] LABS: Glucose,Whole Blood 152 mg/dL (70-110)
[2022-11-14] MEDS ORDERED: CHOLECALCIFEROL 125 MCG (5000 IU) TABLET PO SCH (21:00)
[2022-11-14] MEDS: lisinopriL 10 MG TAB PO SCH (21:17)
[2022-11-14] MEDS: FERROUS SULFATE 325 MG TAB PO SCH (21:17)
[2022-11-14] MEDS: CALCIUM CARBONATE 500 MG CHEWABLE PO PRN (21:17)
[2022-11-14] MEDS: ACETAMINOPHEN TAB 325 MG TAB PO PRN (21:21)
[2022-11-15] MEDS: NITROGLYCERIN OINT 1 INCH/GM PACKET TOPICAL SCH ×2 (00:08→04:20)
[2022-11-15] MEDS: LIDOCAINE 5% PATCH TOPICAL SCH (00:30)
[2022-11-15 06:11] LABS: Glucose,Whole Blood 104 mg/dL (70-110)
[2022-11-15] MEDS: INSULIN ASPART (NovoLOG) 100 UNIT/ML VIAL SQ SCH ×2 (06:11→12:28)
[2022-11-15] MEDS: LEVOTHYROXINE 50 MCG TAB PO SCH (06:16)
[2022-11-15] MEDS ORDERED: DOBUTamine DRIP for NUC MED 500 MG in DEXTROSE/WATER 1 250ML.BAG IV PRN (08:00)
[2022-11-15] MEDS: ASPIRIN 81 MG PO SCH (08:31)
[2022-11-15] MEDS: CLOPIDOGREL 75 MG TAB PO SCH (08:31)
[2022-11-15] MEDS: buPROPion XL 150 MG TAB.ER.24H PO SCH (08:31)
[2022-11-15] MEDS: FOLIC ACID-VIT B COMPLEX-VIT C 1 CAP PO SCH (08:31)
[2022-11-15] MEDS: FAMOTIDINE 20 MG TAB PO SCH (08:31)
[2022-11-15] MEDS: ASCORBIC ACID 500 MG TAB PO SCH (08:31)
[2022-11-15] MEDS: MULTIVITAMINS, THERA 1 EACH TAB PO SCH (08:31)
[2022-11-15] MEDS ORDERED: DOBUTamine DRIP for NUC MED 500 MG/250 ML BAG IV ONE (11:35)
[2022-11-15 12:11] LABS: Glucose,Whole Blood 106 mg/dL (70-110)
--- NOTE | 2022-11-15 12:14 | CA ---
Dobutamine Stress Echocardiogram Report Joan Laird Age: 67 Gender: F : 1955 Exam Date: 11/15/2022 11:18 Exam Location: [facility] Ordering Physician: Zach Strickland MD ([id number]) Referring Physician: Marco A WEAVER Admissions Recruiter: Bette Hair RDCS Technologist: Ht (in): 62 Wt (lb): 198 Procedure CPT: Indication: CP ICD-9 Codes: Rhythm: Patient History: CHEST PAIN, PALPITATIONS, ANGINA, NUMBNESS IN FACE/NECK, HTN, DIABETES, ELEVATED CHOLESTEROL LEVELS, FAMILY HX OF HEART DISEASE, PRIOR SMOKER - QUIT 2.5 YEARS (0.5 PPD X 40 YEARS), PRIOR CARDIAC CATH WITH TWO STENTS Cardiac Medications: Medications in past 24 hours: Contrast: Total Dose (mL): Stress Results Protocol: Dobutamine Peak Dose (???g/kg/min): Duration (min:sec): Atropine:(mg) Target HR: 130 Double Product: [id number] Resting HR: 64 Resting BP: 134 / 79 Peak HR: 143 Peak BP: 179 / 63 Max Predicted HR: 153 93 % Max Predicted HR Stress Summary: BP Response: Reason for Termination: Target HR Cardiac Symptoms: FLUSHED ECG Analysis Resting EKG: Stress EKG: Arrhythmia: Echo Analysis Base Echo Analysis: Low Echo Anaylsis: Peak Echo Analysis: Recovery Echo: MEASUREMENTS (Male/Female) Normal Values CONCLUSIONS Baseline EKG revealed normal sinus rhythm with inferolateral nonspecific [address] abnormality. This is a nonspecific ST abnormality. With the dobutamine administration the heart rate changed from 62-139 bpm and the blood pressure changed from 134/79-179/63. Patient did not have any significant symptoms and rare PVCs were noted EKG changes were nonspecific more prominent ST segment depression was noted but given the resting changes, this is considered is a inconclusive dobutamine stress test by EKG criteria Baseline echo images revealed normal wall motion wall thickening of all segments. With the dobutamine administration as per protocol that was progressive increase in contractility noted and the images suggested excellent augmentation of the front wall motion wall thickening of all segments. There is no evidence of any stress-induced ischemia on this study. Final impression #1 by EKG criteria this is an inconclusive dobutamine stress test because of resting EKG changes with half to [address] depression to begin with #2 normal stress echocardiogram without evidence of ischemia Dr. Tushar Zendejas MD (Electronically Signed) Final Date: 15 November 2022 12:13
[2022-11-15] MEDS: NYSTATIN 100,000 UNIT/GM POWD 15 GM TOPICAL SCH (12:26)
[2022-11-15] MEDS: carvediloL 3.125 MG TAB PO SCH (12:27)
--- NOTE | 2022-11-15 12:38 | P.PN ---
Subjective HISTORY OF PRESENT ILLNESS: This is a 67-year-old female patient of Dr. Sterling with past mental history of coronary artery disease with prior stenting of the LAD in May of this year done at [facility], history of chronic kidney disease, diet-controlled diabetes, hypertension, dyslipidemia. We have been asked to evaluate the patient for chest pain. Patient states that yesterday she developed chest pain and pain in her jaw that was gone by the time EMS arrived. She states she relaxed her self and that's what caused it to go away. She did not take any medications that caused the pain to resolve. She is currently without chest pain. Patient is scheduled for stress test in the office on December 16. EKG sinus rhythm with no acute ST changes. Chest x-ray: No acute process CBC is unremarkable. Troponin negative 3. Sodium 136, potassium 4.1, BUN 20 creatinine 0.84. Blood sugar 158, liver function tests are normal. Magnesium 2.2. Home cardiac medications: Aspirin 81 mg daily, Coreg 3.125 mg twice daily, Plavix 75 mg daily, ferrous sulfate 325 mg daily, levothyroxine 50 g daily, lisinopril 10 mg at bedtime. 11/15/2022 Patient examined this morning at the bedside. Patient denies chest pain or pressure. She denies shortness of breath. Echocardiogram completed revealing ejection fraction 55-60% with trace mitral regurgitation. Dobutamine stress echo negative for ischemia PHYSICAL EXAM: VITAL SIGNS: Reviewed. GENERAL: Well-developed in no acute distress. NECK: Supple. No JVD or thyromegaly LUNGS: Respirations even and unlabored. Lungs essentially clear to auscultation bilaterally. HEART: Regular rate and rhythm. S1 and S2 heard. Systolic murmur noted EXTREMITIES: Normal range of motion. No clubbing or cyanosis. Peripheral pulses intact. No lower extremity edema ASSESSMENT: Chest pain, acute coronary syndrome ruled out History of coronary artery disease with prior stenting of the LAD Hypertension Dyslipidemia History of nonsustained VT Chronic kidney disease stage III Intolerance to multiple statins History of smoking Borderline diabetes PLAN: Continue current cardiac medications Stress test negative for ischemia Patient may be discharged home from a cardiac standpoint We will sign off. Please reconsult if needed. Nurse practitioner note has been reviewed by physician. Signing provider agrees with the documented findings, assessment, and plan of care. Objective - Vital Signs Vital signs: Vital Signs Temp 98.1 F 0807/23 08:30 Pulse 58 L 11/15/22 08:30 Resp 16 11/15/22 08:30 BP 123/77 11/15/22 08:30 Pulse Ox 97 11/15/22 08:30 FiO2 Intake & Output 11/14/22 11/15/22 11/15/22 18:59 06:59 18:59 Intake Total 480 Balance 480 Intake: Oral 480 Other: Voiding Method Toilet Toilet # Voids 2 - Labs CBC & Chem 7: 11/13/22 12:00 11/14/22 07:10 Labs: Abnormal Lab Results - Last 24 Hours (Table) 11/14/22 Range/Units 20:20 POC Glucose (mg/dL) 152 H (70-110) mg/dL
[2022-11-15 12:41] VITALS: BP 153/98; PULSE 84; TEMP 98.2
--- NOTE | 2022-11-16 06:16 | P.DS ---
Providers Date of admission: 11/15/22 08:37 Expected date of discharge: 11/15/22 Attending physician: Jessica Orellana Primary care physician: Liz Marie [facility] Course: Final diagnosis -Chest pain; ruled out acute coronary syndrome, stress test was normal -History of coronary artery disease with cardiac catheterization and status post stent placement -Hypertension -Hyperlipidemia -Diabetes mellitus type 2; currently not on any medications -Depression history -GI prophylaxis -DVT prophylaxis -Full code Discharge disposition Patient is being discharged in a stable condition with guarded prognosis to home. Patient will follow-up with Dr. Marie in the outpatient setting upon discharge. Patient is to continue with the current medications as mentioned below and close outpatient follow-up with cardiology as scheduled. Total time taken is greater than 35 minutes. Hospital course This is a 67-year-old female who was recently admitted with chest pain being closely monitored. Patient had negative troponins were ruled out acute coronary syndrome with cardiology following underwent stress testing which was negative and patient has been cleared by cardiology for outpatient follow-up. Please refer to cardiology no for further HPI. Patient has also been instructed to follow-up with primary care provider this week. Currently no reports of chest pain, shortness of breath, or palpitations. Patient is afebrile. No reports of nausea or vomiting and patient is tolerating diet. Patient will be discharged home today. Guarded prognosis Physical exam: Gen: This is a 67-year-old female who is awake, alert and oriented 3, well- developed, well-nourished, obese HEENT: Head is atraumatic, normocephalic. Pupils equal, round. Sclerae is anicteric. NECK: Supple. No JVD. No lymphadenopathy. No thyromegaly. LUNGS: Clear to auscultation. No wheezes or rhonchi. No intercostal retractions. HEART: S1, S2 are muffled ABDOMEN: Soft. Bowel sounds are present. No masses. No tenderness. EXTREMITIES: No pedal edema. No calf tenderness. NEUROLOGICAL: Patient is awake, alert and oriented x3. Cranial nerves 2 through 12 are grossly intact. Please refer to medication reconciliation sheet for a list of medications. The impression and plan of care has been dictated by Sarah Hollingsworth, Nurse Practitioner as directed. Dr. Esteban MD I have performed a history and examination and MDM of this patient, discussed the same with the dictator, and agree with the dictator's assessment and plan as written ,documented as a scribe. Based on total visit time, I have performed more than 50% of the visit. Patient Condition at Discharge: Stable Plan - Discharge Summary New Discharge Prescriptions: New Nystatin 100,000 Unit/gm Powd [Mycostatin Powder] 1 applic TOPICAL BID 7 Days #1 each Calcium Carbonate [Tums] 500 mg PO QID PRN tab PRN Reason: Heartburn Acetaminophen Tab [Tylenol] 650 mg PO Q6HR PRN tab PRN Reason: Fever And/ Or Pain Continue Ascorbic Acid [Vitamin C] 500 mg PO BID Levothyroxine Sodium [Synthroid] 50 mcg PO DAILY Lidocaine 5% Patch [Lidoderm 5% Patch] 1 patch TOPICAL HS Turmeric Root Extract [Turmeric] 1,500 mg PO HS Vitamin B Complex 1 cap PO DAILY Aspirin EC [Ecotrin Low Dose] 81 mg PO DAILY Ferrous Sulfate [Iron] 325 mg PO HS Cholecalciferol [Vitamin D3 (125 Mcg = 5000 Iu)] 125 mcg PO DAILY lisinopriL [Zestril] 10 mg PO HS buPROPion XL [Wellbutrin XL] 150 mg PO DAILY carvediloL [Coreg] 3.125 mg PO BID Multivitamins, Thera [Multivitamin (formulary)] 1 tab PO DAILY Famotidine [Pepcid] 20 mg PO DAILY Levocetirizine Dihydrochloride [Xyzal] 2.5 mg PO W/SUPPER Clopidogrel [Plavix] 75 mg PO DAILY Discharge Medication List Ascorbic Acid [Vitamin C] 500 mg PO BID 09/05/13 [History] Levothyroxine Sodium [Synthroid] 50 mcg PO DAILY 07/23/18 [History] Lidocaine 5% Patch [Lidoderm 5% Patch] 1 patch TOPICAL HS 05/14/20 [History] Turmeric Root Extract [Turmeric] 1,500 mg PO HS 05/14/20 [History] Vitamin B Complex 1 cap PO DAILY 05/14/20 [History] Aspirin EC [Ecotrin Low Dose] 81 mg PO DAILY 11/12/22 [History] Cholecalciferol [Vitamin D3 (125 Mcg = 5000 Iu)] 125 mcg PO DAILY 11/12/22 [History] Clopidogrel [Plavix] 75 mg PO DAILY 11/12/22 [History] Famotidine [Pepcid] 20 mg PO DAILY 11/12/22 [History] Ferrous Sulfate [Iron] 325 mg PO HS 11/12/22 [History] Levocetirizine Dihydrochloride [Xyzal] 2.5 mg PO W/SUPPER 11/12/22 [History] Multivitamins, Thera [Multivitamin (formulary)] 1 tab PO DAILY 11/12/22 [History] buPROPion XL [Wellbutrin XL] 150 mg PO DAILY 11/12/22 [History] carvediloL [Coreg] 3.125 mg PO BID 11/12/22 [History] lisinopriL [Zestril] 10 mg PO HS 11/12/22 [History] Acetaminophen Tab [Tylenol] 650 mg PO Q6HR PRN tab 11/15/22 [Rx] Calcium Carbonate [Tums] 500 mg PO QID PRN tab 11/15/22 [Rx] Nystatin 100,000 Unit/gm Powd [Mycostatin Powder] 1 applic TOPICAL BID 7 Days #1 each 11/15/22 [Rx] Follow up Appointment(s)/Referral(s): Omer Sterling MD [STAFF PHYSICIAN] - 11/23/22 11:15 am (main office) Liz Marie [Primary Care Provider] - 11/16/22 10:00 am Patient Instructions/Handouts: Chest Pain (DC) Activity/Diet/Wound Care/Special Instructions: Activity Limited until follow-up Follow-up with primary care provider on discharge Follow-up with cardiology outpatient Continue taking medications as prescribed Continue heart healthy diet Discharge Disposition: HOME SELF-CARE
== END 2022-11-15 13:55 | disposition home or self-care (01) | DRG 313 ==
LOC: EC 10:21 → 3SCARD 12:48 → OBSVTOIN 11-15 08:37
PROVIDERS: ADMIT Hospitalist; ATTEND Hospitalist
DX: R07.9 Chest pain, unspecified (principal); E03.9 Hypothyroidism, unspecified; E11.9 Type 2 diabetes mellitus without complications; M79.7 Fibromyalgia; Z79.890 Hormone replacement therapy; E78.00 Pure hypercholesterolemia, unspecified; M81.0 Age-related osteoporosis without current pathological fracture; M19.90 Unspecified osteoarthritis, unspecified site; I12.9 Hypertensive chronic kidney disease with stage 1 through stage 4 chronic kidney disease, or unspecified chronic kidney disease; E11.22 Type 2 diabetes mellitus with diabetic chronic kidney disease; Z95.1 Presence of aortocoronary bypass graft; I25.10 Atherosclerotic heart disease of native coronary artery without angina pectoris; F32.A Depression, unspecified; I34.1 Nonrheumatic mitral (valve) prolapse; R01.1 Cardiac murmur, unspecified; I34.0 Nonrheumatic mitral (valve) insufficiency; Z87.19 Personal history of other diseases of the digestive system; G57.60 Lesion of plantar nerve, unspecified lower limb; K22.70 Barrett's esophagus without dysplasia; N18.30 Chronic kidney disease, stage 3 unspecified; Z87.891 Personal history of nicotine dependence; Z79.02 Long term (current) use of antithrombotics/antiplatelets; Z79.82 Long term (current) use of aspirin; Z79.899 Other long term (current) drug therapy; Z82.49 Family history of ischemic heart disease and other diseases of the circulatory system; Z90.710 Acquired absence of both cervix and uterus; Z95.5 Presence of coronary angioplasty implant and graft; Z88.5 Allergy status to narcotic agent; Z88.6 Allergy status to analgesic agent; Z91.041 Radiographic dye allergy status; Z91.048 Other nonmedicinal substance allergy status; Z91.040 Latex allergy status
CPT/HCPCS: 36415; 71046; 80048; 80053; 80061; 83036; 83735; 84484; 85025; 85610; 85730; 93005; 93306; 93351; 94760

== ENCOUNTER → 2023-01-31 | Outpatient (CLI) | payer MEDICARE, OTHER ==
--- NOTE | 2023-02-01 17:06 | MR ---
EXAMINATION TYPE: MR lumbar spine wo con DATE OF EXAM: 01/31/2023 6:31 PM CLINICAL INDICATION:Female, 67 years old with history of M51.27 OTHER INTERVERTEBRAL DISC DISPLACEMEN T, LUM; Low back pain COMPARISON: 05/07/2022 TECHNIQUE: Multi planar, multi sequence imaging was performed utilizing: T1-weighted, T2-weighted, a nd turbo inversion recovery imaging of the lumbar spine. IV Contrast: (None if empty) FINDINGS: Alignment: The lumbar vertebral bodies have preserved heights with grade 1 anterolisthesis of L4 on L 5. Cord: The conus medullaris and the distal spinal cord appear unremarkable with regards to their signa l intensity and morphology. Bones/Discs: Multilevel disc degeneration changes with osteophyte formation, disc space narrowing, Sc hmorl's nodes, and facet joint arthropathy. Some reactive bony inversion recovery signal at the adjoi blade endplates of L4 and L5 and L5-S1. Multilevel disc desiccation is present. T12-L1: No evidence of significant spinal canal stenosis or neural foraminal stenosis. L1-L2: No evidence of significant spinal canal stenosis or neural foraminal stenosis. L2-L3: Disc bulge and facet joint arthropathy result in mild spinal canal and moderate bilateral neur al foraminal stenosis. L3-L4: Disc bulge and facet joint arthropathy result in mild spinal canal and moderate bilateral neur al foraminal stenosis. L4-L5: Disc uncovering from grade 1 anterolisthesis and facet joint arthropathy with mild spinal ne l stenosis and moderate to severe bilateral neural foraminal stenosis. L5-S1: The disc is rounded posterior morphology without significant spinal canal stenosis. Facet join t arthropathy with moderate bilateral neural foraminal stenosis. No significant spinal canal or neural foraminal stenosis in the remainder of the visualized levels. Other findings: None. IMPRESSION: Overall stable exam from prior on 05/07/2022. 1. No definitive evidence of disc herniation or significant spinal canal stenosis. 2. Moderate disc degeneration with associated osteoarthritic changes as well as grade 1 anterior lis thesis of L4 and L5. No foraminal stenosis worse at L2-L3 to L5-S1.
== END | disposition home or self-care (01) ==
LOC: RADMRIMAIN 17:51
PROVIDERS: ATTEND Neurological Surgery
DX: M51.27 Other intervertebral disc displacement, lumbosacral region (principal); M43.16 Spondylolisthesis, lumbar region; M51.36 Other intervertebral disc degeneration, lumbar region
CPT/HCPCS: 72148

== ENCOUNTER → 2023-04-29 | Outpatient (CLI) | payer MEDICARE, OTHER ==
[2023-04-29 18:28] LABS: HCT 41.1 % (37.2-46.3); HGB 13.4 g/dL (12.0-15.0); MCHC 32.6 g/dL (32.0-37.0); MCV 91.9 FL (80.0-97.0); Mean Platelet Volume 10.1 FL (9.5-12.2); NRBC Per 100 WBC 0 X 10*3/uL (0.00-0.01); Platelet Count 306 X 10*3/uL (140-440); RBC 4.47 X 10*6/uL (4.10-5.20); RDW 12.8 % (11.5-14.5)
[2023-04-29 18:47] LABS: Blood Urea Nitrogen 29.1 mg/dL (9.0-27.0); Carbon Dioxide 26.2 mmol/L (21.6-31.8); Chloride 102 mmol/L (96-109); Potassium 4.1 mmol/L (3.5-5.5); Sodium 141 mmol/L (135-145)
== END | disposition home or self-care (01) ==
LOC: LABWHC1 12:28
PROVIDERS: ATTEND Internal Medicine Cardiovascular Disease
DX: I10 Essential (primary) hypertension (principal); I25.10 Atherosclerotic heart disease of native coronary artery without angina pectoris; E78.5 Hyperlipidemia, unspecified
CPT/HCPCS: 36415; 80051; 82565; 84520; 85027

== ENCOUNTER → 2023-05-04 | Outpatient (CLI) | payer MEDICARE, OTHER ==
[2023-05-04 20:34] LABS: % Iron Saturation 23.54 (12.00-45.00); Iron 93 UG/DL (50-170); Total Iron Binding Capacity 395 UG/DL (228-460)
[2023-05-04 21:23] LABS: Potassium 4.8 mmol/L (3.5-5.5)
== END | disposition home or self-care (01) ==
LOC: LABWHC1 14:09
PROVIDERS: ATTEND Student in an Organized Health Care Education/Training Program
DX: E87.5 Hyperkalemia (principal); R41.3 Other amnesia; Z79.899 Other long term (current) drug therapy
CPT/HCPCS: 36415; 82306; 83540; 83550; 84132; 84443

== ENCOUNTER → 2023-06-23 | Outpatient (CLI) | payer MEDICARE, OTHER ==
[2023-06-23 18:05] LABS: Basophils # (A) 0.07 X 10*3/uL (0.00-0.10); Basophils % (A) 1.2 %; Eosinophils # (A) 0.17 X 10*3/uL (0.04-0.35); Eosinophils % (A) 2.8 %; HCT 37.9 % (37.2-46.3); Lymphocytes # (A) 1.64 X 10*3/uL (0.90-5.00); Lymphocytes % (A) 27.5 %; MCH 30.7 pg (27.0-32.0); MCHC 31.7 g/dL (32.0-37.0); MCV 96.9 FL (80.0-97.0); Mean Platelet Volume 10.9 FL (9.5-12.2); Monocytes # (A) 0.47 X 10*3/uL (0.20-1.00); Monocytes % (A) 7.9 %; NRBC Per 100 WBC 0 X 10*3/uL (0.00-0.01); Neutrophils % (A) 60.3 %; Platelet Count 296 X 10*3/uL (140-440); RBC 3.91 X 10*6/uL (4.10-5.20); RDW 13.6 % (11.5-14.5); WBC 5.97 X 10*3/uL (4.50-10.00)
[2023-06-23 20:00] LABS: Appearance,Urine Clear (Clear); Bilirubin,Urine Negative (Negative); Blood,Urine Negative (Negative); Color,Urine Yellow (Yellow); Ketones,Urine Negative (Negative); Nitrite,Urine Negative (Negative); Specific Gravity,Urine 1.008 (1.001-1.030); Urobilinogen,Urine 0.2 E.U./DL
[2023-06-23 20:47] LABS: Microalbumin Creatinine Ratio <43 mg/g Cr (0-30); Urine Creatinine 28.2 mg/dL (28.0-217.0)
[2023-06-23 21:08] LABS: BUN/Creat Ratio 25.64 Ratio (12.00-20.00); Blood Urea Nitrogen 28.2 mg/dL (9.0-27.0); Carbon Dioxide 27.6 mmol/L (21.6-31.8); Chloride 100 mmol/L (96-109); Glucose 160 mg/dL (70-110); Iron 129 UG/DL (50-170); Magnesium 2.2 mg/dL (1.5-2.4); Phosphorus 3.3 mg/dL (2.4-5.1); Potassium 4.7 mmol/L (3.5-5.5); Sodium 140 mmol/L (135-145); Total Iron Binding Capacity 407 UG/DL (228-460); Uric Acid 6.3 mg/dL (2.9-7.7)
[2023-06-23 21:09] LABS: Albumin 4.4 g/dL (3.8-4.9); Calcium 10.3 mg/dL (8.7-10.3); Ferritin 68.7 ng/mL (10.0-291.0)
== END | disposition home or self-care (01) ==
LOC: LABWHC1 12:44
PROVIDERS: ATTEND Family Medicine
DX: N18.2 Chronic kidney disease, stage 2 (mild) (principal); E61.1 Iron deficiency; R53.83 Other fatigue
CPT/HCPCS: 36415; 80048; 81003; 82040; 82043; 82306; 82570; 82728; 83540; 83550; 83655; 83735; 83970; 84100; 84550; 85025

== ENCOUNTER → 2023-07-27 | Outpatient (CLI) | payer MEDICARE, OTHER ==
[2023-07-27 15:45] LABS: Basophils # (A) 0.05 X 10*3/uL (0.00-0.10); Eosinophils # (A) 0.11 X 10*3/uL (0.04-0.35); Eosinophils % (A) 2.1 %; HCT 40.2 % (37.2-46.3); Lymphocytes # (A) 1.22 X 10*3/uL (0.90-5.00); Lymphocytes % (A) 23.7 %; MCH 30.6 pg (27.0-32.0); MCHC 32.3 g/dL (32.0-37.0); MCV 94.6 FL (80.0-97.0); Mean Platelet Volume 10.7 FL (9.5-12.2); Monocytes # (A) 0.44 X 10*3/uL (0.20-1.00); Monocytes % (A) 8.6 %; NRBC Per 100 WBC 0 X 10*3/uL (0.00-0.01); Neutrophils # (A) 3.31 X 10*3/uL (1.80-7.70); Neutrophils % (A) 64.4 %; Platelet Count 261 X 10*3/uL (140-440); RBC 4.25 X 10*6/uL (4.10-5.20); RDW 13.2 % (11.5-14.5); WBC 5.14 X 10*3/uL (4.50-10.00)
[2023-07-27 16:04] LABS: Blood Urea Nitrogen 24.1 mg/dL (9.0-27.0); Calcium 9.9 mg/dL (8.7-10.3); Carbon Dioxide 25.1 mmol/L (21.6-31.8); Chloride 102 mmol/L (96-109); Glucose 127 mg/dL (70-110); Potassium 4.5 mmol/L (3.5-5.5); Sodium 140 mmol/L (135-145)
== END | disposition home or self-care (01) ==
LOC: LABWHC1 08:14
PROVIDERS: ATTEND Internal Medicine Cardiovascular Disease
DX: I10 Essential (primary) hypertension (principal); I25.10 Atherosclerotic heart disease of native coronary artery without angina pectoris; E78.5 Hyperlipidemia, unspecified
CPT/HCPCS: 36415; 80048; 85025

== ENCOUNTER 2023-10-07 09:33 | Day surgery (SDC) | payer MEDICARE, OTHER ==
[2023-10-05 13:36] VITALS: BMI 44.0
[2023-10-07 10:27] VITALS: TEMP 97.5
[2023-10-07] MEDS: IV FLUID CONTINUATION 1,000 ML IV ONE ×2 (10:37→10:48)
[2023-10-07] MEDS: LACTATED RINGERS 1,000 ML IV SCH (10:38)
[2023-10-07 10:40] LABS: Glucose,Whole Blood 136 mg/dL (70-110)
[2023-10-07] MEDS ORDERED: PROPOFOL 10 MG/ML 20 ML VIAL IV ONE (10:49)
--- NOTE | 2023-10-07 11:02 | P.PCN ---
Date of Procedure: 10/07/23 Procedure(s) Performed: BRIEF HISTORY: Patient is a 87-year-old, pleasant, white female scheduled of endoscopies about evaluation longstanding history of GERD and possible Yarbrough's esophagus.. PROCEDURE PERFORMED: Esophagogastroduodenoscopy with biopsy. PREOPERATIVE DIAGNOSIS: GERD/Yarbrough's. IV sedation per anesthesia. PROCEDURE: After informed consent was obtained, the patient was brought into the endoscopy unit. IV sedation was administered by Anesthesia under continuous monitoring. Initially the Olympus GIF-140 video endoscope was inserted into the mouth. Esophagus intubated without any difficulty. It was gradually advanced into the stomach and duodenum and carefully examined. The bulb and the second part of the duodenum appeared normal. The scope at this time was withdrawn to the stomach, adequately insufflated with air, and upon careful examination, mucosa of the antrum mild gastritis and biopsies were done from this area., body, cardia and the fundus appeared normal. The scope was then withdrawn into the esophagus. Small hiatal hernia noted. The GE junction was located at 36 cm from the incisors. There was a 3 mm island of Yarbrough's appearing mucosa just proximal to the GE junction which was biopsied. The esophagus appeared normal. There were no erosions or ulcerations seen and the patient tolerated the procedure well. IMPRESSION: 1. 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 2. Small hiatal hernia 3. Mild antral gastritis. RECOMMENDATIONS: The findings of this examination were discussed with the patient as well as her family. She was advised to follow-up with the biopsy results. If the biopsy confirms the presence of Yarbrough's esophagus, recommend ed repeat upper endoscopy in 3 years. In the meantime she will continue with Pepcid 40 mg at bedtime and follow antireflux measures..
[2023-10-07 11:34] VITALS: BP 120/73; PULSE 66; RESP 20
== END 2023-10-07 11:48 | disposition home or self-care (01) ==
LOC: ORWHC2ENDO 09:33
PROVIDERS: ATTEND Internal Medicine Gastroenterology
DX: K22.70 Barrett's esophagus without dysplasia (principal); K29.70 Gastritis, unspecified, without bleeding; K21.9 Gastro-esophageal reflux disease without esophagitis; K44.9 Diaphragmatic hernia without obstruction or gangrene; I10 Essential (primary) hypertension; I25.10 Atherosclerotic heart disease of native coronary artery without angina pectoris; Z95.5 Presence of coronary angioplasty implant and graft; I34.1 Nonrheumatic mitral (valve) prolapse; N28.9 Disorder of kidney and ureter, unspecified; E07.9 Disorder of thyroid, unspecified; F32.A Depression, unspecified; Z88.1 Allergy status to other antibiotic agents; Z88.5 Allergy status to narcotic agent; Z88.6 Allergy status to analgesic agent; Z88.8 Allergy status to other drugs, medicaments and biological substances; Z91.041 Radiographic dye allergy status; Z91.040 Latex allergy status; Z91.09 Other allergy status, other than to drugs and biological substances; F17.200 Nicotine dependence, unspecified, uncomplicated; Z79.890 Hormone replacement therapy; Z79.02 Long term (current) use of antithrombotics/antiplatelets; Z79.899 Other long term (current) drug therapy
CPT/HCPCS: 88305; 43239; J2704

== ENCOUNTER → 2023-11-10 | Outpatient (CLI) | payer MEDICARE, OTHER ==
[2023-11-10 13:45] VITALS: BP 139/80; PULSE 75; RESP 16
--- NOTE | 2023-11-10 14:42 | P.PAINPG ---
PQRS Measure Charge Sheet Comment: HISTORY OF PRESENT ILLNESS: A 68 yr old female as a referral from Dr Paige presents today w severe and chronic LBP > 1 yr secondary to DDD, spondylosis and facet arthropathy without myelopathy for evaluation. Pt states she fell very hard getting into the [employer] bus within the last few weeks and has felt a pop in her spine. Pt states pain level is provoked at 10 /10 in intensity, constant, localized in the lumbar spine, predominantly axial, sharp in character w occasional shooting pain towards the L thigh. Pain is provoked by sitting. Pain is alleviated by PT in 2020, chiropractic treatments monthly x years w last visit in Oct 2023 , physician guided home stretches daily since 2022, heat, ice, medications (Tyl), Lidoderm topical, use of a walker for ambulatory assistance, repositioning and rest . Oswestry axial pain score at 27. PMH: OA, CAD, Angina, Diabetes Mellitus, Fibromyalgia, HTN, MVP, CKD II, Hypothyroidism, HH, EBV, Mortens Neuroma, OP, MDD PSH: EGD (2023), Cervical TPIs (2016), Cardiac Catherterization w Stent x2 (2018), , Hysterectomy, Tonsillectomy, Eye Surgery SH: Former tobacco user, Hx of ETOH abuse (sober since 2016), No illicit drug use FH: Fa- CHF All: See list Meds: See list REVIEW OF ORGAN SYSTEMS: CONSTITUTIONAL: No fevers or chills. No recent weight loss. NEUROLOGICAL: + numbness and tingling along the distal extremities. No seizure disorders or headaches. MUSCULOSKELETAL: + pain PSYCHIATRIC: Denies current depression or suicidal thoughts. Physical Examinations : Constitutional : Cooperative , not in acute distress . Neurologic : Cranial nerve II to XII intact. No focal neurological deficits. Psychiatric : alert & oriented x 3. Matching mood & appropriate affect. Judgment & insight intact. Musculoskeletal : Cervical Spine Motor strength in the deltoid and biceps: Normal right side. Normal Left side Motor strength biceps and the wrist extensors: Normal right side . Normal left side Motor strength in the triceps muscle: Normal right side. Normal left side Deep tendon reflexes: Normal at the biceps. Normal at Brachioradialis. Normal at triceps Vertebral body tenderness to deep palpation over Cervical facet loading test: positive bilaterally Spurling test: positive bilaterally Neck distraction test: positive bilaterally Indigo sign: positive bilaterally Lumbar spine Motor strength lower extremities ,thigh and legs 5/5 Right side , 5/5 Left side Deep tendon reflexes : Normal Knee Jerk. Normal Ankle Jerk Vertebral body tenderness over L3, L4 Roldan Test positive Lumbar facet Loading Test: positive Right / positive Left Range of motion of the lumbar spine Flexion 30 degrees, extension 10 degrees Straight Leg Raise test: Left/ Right positive at degrees Sheryl test: positive right / positive left. Severe tenderness over the Sacroiliac joint on the Right / Left sides Gaenslen test: positive bilaterally Seated flexion test: positive bilaterally. Sacral spine : Severe tenderness over the Sacroiliac joint: right side / left side Range of motion: Flexion of the lumbar spine <60 degrees Range of motion: Extension of the lumbar spine <20 degrees Gaenslen's Test positive Sheryl test: positive right side / left side Thigh Thrust Test Sacral Thrust Test Imaging: MRI non contrast lumbar spine from 05/07/22 reviewed Lumbar x ray from 05/03/22 reviewed Assessment/ Plan : Lumbar radiculopathy, R lumbar spondylosis Recommendation of MRI non contrast lumbar spine M54.16. All questions answered. I have spent greater than 30 minutes on patient care today. Dr Hudson was available by phone for the evaluation of this patient. The time was used to review the medical records including relevant urine studies and Prescription history (MAPs), review of the available imaging, evaluation and examination of the patient, coordination of care with the medical staff and if applicable referring physicians, as well as creation of the medical record - Pain Location Bilateral Lower Back Non-Pharmacological Interventions: Chiropractic Treatment, Heat, Ice, Inactivity, Physical Therapy, Position/Reposition, Sitting Pharmacological Interventions: Epidural, PRN Medication, Topical Medication PQRS Narrative: Smoking Status Current every day smoker Hx Alcohol Use (MH) No Home Medications: Ambulatory Orders Ascorbic Acid [Vitamin C] 500 mg PO BID 09/05/13 Levothyroxine Sodium [Synthroid] 50 mcg PO DAILY 07/23/18 Turmeric Root Extract [Turmeric] 1,500 mg PO HS 05/14/20 Vitamin B Complex 1 cap PO DAILY 05/14/20 Cholecalciferol [Vitamin D3 (125 Mcg = 5000 Iu)] 125 mcg PO DAILY 11/12/22 Clopidogrel [Plavix] 75 mg PO DAILY 11/12/22 Famotidine [Pepcid] 40 mg PO HS 11/12/22 Levocetirizine Dihydrochloride [Xyzal] 2.5 mg PO W/SUPPER 11/12/22 Multivitamins, Thera [Multivitamin (formulary)] 1 tab PO DAILY 11/12/22 buPROPion XL [Wellbutrin XL] 150 mg PO DAILY 11/12/22 Acetaminophen Tab [Tylenol] 650 mg PO Q6HR PRN tab 11/15/22 Calcium Carbonate [Tums] 500 mg PO QID PRN tab 11/15/22 Chlorthalidone 50 mg PO DAILY 10/05/23 Losartan Potassium 100 mg PO DAILY 10/05/23 Controlled Substance Measures - Controlled Substance Measures Is patient prescribed a controlled substance at discharge?: No
== END ==
LOC: PNWHC3 13:14
PROVIDERS: ATTEND Specialist
DX: M47.26 Other spondylosis with radiculopathy, lumbar region (principal); F17.200 Nicotine dependence, unspecified, uncomplicated; Z88.5 Allergy status to narcotic agent; Z88.8 Allergy status to other drugs, medicaments and biological substances; Z91.041 Radiographic dye allergy status; Z91.048 Other nonmedicinal substance allergy status; Z88.1 Allergy status to other antibiotic agents; Z91.040 Latex allergy status
CPT/HCPCS: 99211

== ENCOUNTER 2024-04-11 22:50 | Emergency (ER) | payer MEDICARE, OTHER ==
[2024-04-11 23:16] VITALS: TEMP 98.5
[2024-04-11] MEDS: LABETALOL SYRINGE 5 MG/ML (4 ML SYR) IVP STA ×2 (23:19→23:24)
--- NOTE | 2024-04-11 23:35 | ED ---
General Adult HPI - General Chief complaint: Headache Stated complaint: Hypertension Time Seen by Provider: 04/11/24 22:51 Source: EMS Mode of arrival: EMS - History of Present Illness Initial comments: Patient is a 68-year-old female with a past medical history of hypertension, C AD, fibromyalgia presenting today for hypertension and headache. Patient takes losartan 25 mg twice daily. She took her dose this morning, this evening started to have a mild headache on the right side of her head so took her blood pressure. States that it was 200something over 95. She took an additional 25 mg of losartan and went to bed. When she woke up she continued to have a headache so came to the ER. Patient states she took 1000 milligrams of Tylenol just prior to coming in and states her headache is already improving. Additionally she had mild right jaw pain with the onset of a headache that has since resolved. Endorses chronic neck and right shoulder pain that she has been dealing with for a few months but nothing new today. She denies any chest pain or shortness of breath, lower extremity swelling or abdominal pain, nausea, vomiting, diaphoresis. States that over the last year she has been having intermittent blurry vision however has improved with corrective lenses, no changes in vision today. No new numbness weakness or slurred speech. - Related Data Home Medications Medication Instructions Recorded Confirmed Ascorbic Acid [Vitamin C] 500 mg PO BID 09/05/13 10/05/23 Levothyroxine Sodium [Synthroid] 50 mcg PO DAILY 07/23/18 10/05/23 Turmeric Root Extract [Turmeric] 1,500 mg PO HS 05/14/20 10/05/23 Vitamin B Complex 1 cap PO DAILY 05/14/20 10/05/23 Cholecalciferol [Vitamin D3 (125 125 mcg PO DAILY 11/12/22 10/05/23 Mcg = 5000 Iu)] Clopidogrel [Plavix] 75 mg PO DAILY 11/12/22 10/05/23 Famotidine [Pepcid] 40 mg PO HS 11/12/22 10/05/23 Levocetirizine Dihydrochloride 2.5 mg PO W/SUPPER 11/12/22 10/05/23 [Xyzal] Multivitamins, Thera [Multivitamin 1 tab PO DAILY 11/12/22 10/05/23 (formulary)] buPROPion XL [Wellbutrin XL] 150 mg PO DAILY 11/12/22 10/05/23 Chlorthalidone 50 mg PO DAILY 10/05/23 10/05/23 Losartan Potassium 100 mg PO DAILY 10/05/23 10/05/23 Previous Rx's Medication Instructions Recorded Acetaminophen Tab [Tylenol] 650 mg PO Q6HR PRN tab 11/15/22 Calcium Carbonate [Tums] 500 mg PO QID PRN tab 11/15/22 Allergies Allergy/AdvReac Type Severity Reaction Status Date / Time codeine Allergy Severe Nausea & Verified 11/10/23 13:39 Vomiting cortisone Allergy Severe Swelling Verified 11/10/23 13:39 dexamethasone Allergy Severe Swelling Verified 11/10/23 13:39 Iodinated Contrast Media Allergy Severe Rash/Hives Verified 11/10/23 13:39 [Iodinated Contrast Media - Oral and] naproxen [From Naprosyn] Allergy Severe Anaphylaxis Verified 11/10/23 13:39 adhesive Allergy Intermediate Itching Verified 11/10/23 13:39 bacitracin Allergy Intermediate Swelling Verified 11/10/23 13:39 [From Neosporin ([id number])] latex Allergy Unknown Itching Verified 11/10/23 13:39 neomycin Allergy Unknown Verified 11/10/23 13:39 [From Neosporin ([id number])] polymyxin B Allergy Unknown Verified 11/10/23 13:39 [From Neosporin ([id number])] prednisone Allergy Unknown Verified 11/10/23 13:39 amitriptyline HCl AdvReac Intermediate Unknown Verified 11/10/23 13:39 [From Elavil] Review of Systems ROS Statement: Those systems with pertinent positive or pertinent negative responses have been documented in the HPI. ROS Other: All systems not noted in ROS Statement are negative. Past Medical History Past Medical History: Coronary Artery Disease (CAD), Chest Pain / Angina, Diabetes Mellitus, Fibromyalgia, Hypertension, Mitral Valve Prolapse (MVP), Osteoarthritis (OA), Renal Disease, Thyroid Disorder Additional Past Medical History / Comment(s): hiatal hernia, barretts esophagus, mauricio barre. MORTENS NEUROMA. degenerative disc disease, osteoperosis. two heart stents. renal, stage 2 History of Any Multi-Drug Resistant Organisms: None Reported Past Surgical History: Section, Heart Catheterization With Stent, Hysterectomy, Tonsillectomy Additional Past Surgical History / Comment(s): lap eye surg Past Anesthesia/Blood Transfusion Reactions: No Reported Reaction Date of Last Stent Placement:: 07/26/18 Past Psychological History: Depression Smoking Status: Former smoker - Past Family History Father Family Medical History: Congestive Heart Failure (CHF) General Exam - General Exam Comments Initial Comments: PE: CONSTITUTIONAL: No apparent distress, well appearing SKIN: Warm, dry, no jaundice, hives or petechiae EYES: Pupils are equally round, extraocular movements intact without nystagmus, clear conjunctiva, non-icteric sclera, no papilledema, no retinal hemorrhages, sharp optic disc margins HENT: Normocephalic, atraumatic, moist mucus membranes, oropharynx clear without exudates NECK: , Full range of motion, normal appearance PULMONARY: Clear to auscultation without wheezes, rhonchi, or rales, normal excursion, no accessory muscle use and no stridor CARDIOVASCULAR: Regular rate, rhythm, normal S1 and S2. No appreciated murmurs, rubs or gallops. Strong radial pulses with intact distal perfusion. No lower extremity edema GASTROINTESTINAL: Soft, active bowel sounds throughout, non-tender, non- distended, no palpable masses, no rebound or guarding. No hepatosplenomegaly GENITOURINARY: MUSCULOSKELETAL: Extremities have no gross deformity, no edema, redness, or swelling. No calf swelling NEUROLOGIC:_a/o x 3, GCS 15, normal mentation and speech. Moves all extremities x 4 without motor or sensory deficit, cranial nerves: II (visual luong without defects), III, IV and (extraocular movements are intact, pupils are equal with normal reaction to light), V (intact facial sensation and jaw opening), VII (no facial droop), IX and X (normal palate movement, midline uvula, normal voice), XI (symmetrical shoulder shrug and lateral head rotation against resistance), XII (midline tongue protrusion). Motor strength is 5/5 in all extremities. No abnormal movements. Normal muscle tone. Sensation to light touch is intact bilaterally. No cerebellar signs ([id number], [id number]-fh-[id number], are normal) PSYCHIATRIC:_normal mood and affect, thought process is clear and linear Course Vital Signs 04/11/24 04/12/24 04/12/24 22:51 00:01 00:22 Temperature 98.5 F Pulse Rate 78 70 69 Respiratory 18 18 17 Rate Blood Pressure 206/105 200/102 192/82 O2 Sat by Pulse 99 100 96 Oximetry 04/12/24 04/12/24 04/12/24 00:58 01:01 01:34 Temperature Pulse Rate 66 64 68 Respiratory 16 14 15 Rate Blood Pressure 192/87 183/81 169/86 O2 Sat by Pulse 97 97 97 Oximetry 04/12/24 04/12/24 04/12/24 02:33 03:30 05:11 Temperature Pulse Rate 60 64 61 Respiratory 12 13 16 Rate Blood Pressure 145/59 152/77 149/64 O2 Sat by Pulse 95 98 97 Oximetry EKG Findings - EKG Comments: EKG Findings:: Sinus rhythm, rate 78 bpm AL interval 148 ms QRS duration 109 ms QT/QTc 377/4 to 10 ms, left axis deviation, no ST elevations or depressionsCompared to EKG performed on 06/03/2023, left axis deviation is new from prior though this may be due to lead placement, otherwise no significant change from prior Medical Decision Making - Medical Decision Making Was pt. sent in by a medical professional or institution (, PA, SUCTION PLATE CARRIER CLEANER, urgent care, hospital, or half-way...) When possible be specific @ -No Did you speak to anyone other than the patient for history (EMS, parent, family, police, friend...)? What history was obtained from this source @Obtained history from EMS, on their assessment patient was blood pressure was 187 systolic Did you review nursing and triage notes (agree or disagree)? Why? @ -I reviewed and agree with nursing and triage notes Were old charts reviewed (outside hosp., previous admission, EMS record, old EKG , old radiological studies, urgent care reports/EKG's, half-way records)? Report findings Medical records reviewed, reviewed patient's extensive allergy list, no history of allergic reaction to labetalol Differential Diagnosis (chest pain, altered mental status, abdominal pain women, abdominal pain men, vaginal bleeding, weakness, fever, dyspnea, syncope, headache, dizziness, GI bleed, back pain, seizure, CVA, palpatations, mental health, musculoskeletal)? @Differential diagnose jacqueline broad over top considerations include tension headache, migraine, cluster FRAZIER, hypertensive emergency, hypertensive urgency, ths is not an all inclusive list. Additonally, considered intracerebral, however this is not the worst headache of patient's life, it was not sudden onset in nature, she has no focal neurological deficits therefore at this time I do not feel CT imaging of the head is necessary EKG interpreted by me (3pts min.). @ -As above X-rays interpreted by me (1pt min.). @ -None done CT interpreted by me (1pt min.). @ -None done U/S interpreted by me (1pt. min.). @ -None done What testing was considered but not performed or refused? (CT, X-rays, U/S, labs)? Why? Ordered chest x-ray however patient refused stating she has had multiple chest x-rays recently, discussed with pt reason for XR is to assess for cardiomegaly, pulm. edema etc, however she politely declined What meds were considered but not given or refused? Why? Considered muscle relaxant as patient complains of chronic neck pain however pt is also very concerned about trialing new medications due to hx multiple dain rgies so we will forgo additonal unnecessary medications at this time Did you discuss the management of the patient with other professionals (professionals i.e. , PA, SU[employer]ER CLEANER, lab, RT, psych nurse, protective services social worker, packerhead machine operator, teacher, chief information officer, supportive employment case manager)? Give summary @ -No Was smoking cessation discussed for >3mins.? @ -No Was critical care preformed (if so, how long)? @ -No Were there social determinants of health that impacted care today? How? (Homelessness, low income, unemployed, alcoholism, drug addiction, transportation, low edu. Level, literacy, decrease access to med. care, intermediate, r ehab)? @ -No Was there de-escalation of care discussed even if they declined (Discuss DNR or withdrawal of care, Hospice)? @ -No What co-morbidities impacted this encounter? (DM, HTN, Smoking, COPD, CAD, Cancer, CVA, ARF, Chemo, Hep., AIDS, mental health diagnosis, sleep apnea, morbid obesity)? Hypertension, fibromyalgia, CAD Was patient admitted / discharged? Hospital course, mention meds given and route, prescriptions, significant lab abnormalities, going to OR and other pertinent info. @ Discharged- patient is a 68-year-old female history of CAD, hypertension, fibromyalgia presenting to the ER for hypertension and headache. On my assessment patient well-appearing in no acute distress, no focal neurologic deficits, no other symptoms consistent with endorgan damage. Systolic blood pre ssure on arrival 205, discussed with patient plan for IV labetalol. She endorsed concern due to multiple allergies to other medications. I called pharmacy to ask a patient is received in the past and they do not find a record of patient receiving this before so we will start with a small 10 mg dose of labetalol and go from there. Ordered basic labs and chest x-ray to assess for signs of endorgan damage. Pt agreeable with POC. Patient received 10 mg labetalol. States that she felt like her throat was drying up. Her posterior oropharynx shows no edema or swelling, no wheezing on exam. Patient very anxious. Provided with benadryl. Will forego additional labetolol due to patient's concern for allergic reaction though patients signs and symptoms are not consistent with an allergic reaction to labetalol. Patient says she is very anxious and achy all over as well from her rheumatoid arthritis, I discussed with her that due to her concerns for allergic reaction to medications she has not had in the past so will avoid unfamiliar medications. Pt provided xanax and oral coreg as she has tolerated these in the past Additionally, pt refused CXR. I discussed with her that this would be used to assess for cardiac enlargement, pulm edema, etc. Pt contiunued to refuse CXR. Labs and imaging reviewed. Grossly within normal limits. Abnormal values not concerning for acute pathology related to presenting complaint. On reassessment patient's blood pressure 145 systolic. She is sleeping comfortably. I discussed with her reassuring workup thus far, pending repeat troponin, anticipated discharge if troponin remains non-elevated. I discussed with her increasing her losartan dose to 50 mg nightly. She states that she does not like doing this because "it makes her feel dumb". I suggested restarting her Coreg however she states she does not like the side effects from this either. Ultimately I recommended she increase her losartan dose and follow-up with her primary care provider regarding today's visit. Repeat troponin <0.012. In my medical judgment there is currently no evidence of an immediate life- threatening or surgical condition. Discharge is therefore indicated at this time. Patient discharged in good condition. Undiagnosed new problem with uncertain prognosis? @ -No Drug Therapy requiring intensive monitoring for toxicity (Heparin, Nitro, Insulin, Cardizem)? @ -No Were any procedures done? @ -No Diagnosis/symptom? @Headache, hypertension Acute, or Chronic, or Acute on Chronic? Acute Uncomplicated (without systemic symptoms) or Complicated (systemic symptoms)? Uncomplicated uncomplicated Side effects of treatment? @ -No Exacerbation, Progression, or Severe Exacerbation? @ -No Poses a threat to life or bodily function? How? (Chest pain, USA, GA, pneumonia, PE, COPD, DKA, ARF, appy, cholecystitis, CVA, Diverticulitis, Homicidal, Suicidal, threat to staff... and all critical care pts) @ -No - Lab Data Result diagrams: 04/11/24 23:22 04/11/24 23:22 Lab Results 04/11/24 04/11/24 04/11/24 Range/Units 23:22 23:22 23:22 WBC 7.0 (3.8-10.6) k/uL RBC 4.33 (3.80-5.40) m/uL Hgb 13.1 (11.4-16.0) gm/dL Hct 38.7 (34.0-46.0) % MCV 89.5 (80.0-100.0) fL MCH 30.2 (25.0-35.0) pg MCHC 33.8 (31.0-37.0) g/dL RDW 14.6 (11.5-15.5) % Plt Count 274 (150-450) k/uL MPV 7.9 Neutrophils % 58 % Lymphocytes % 28 % Monocytes % 8 % Eosinophils % 3 % Basophils % 1 % Neutrophils # 4.1 (1.3-7.7) k/uL Lymphocytes # 2.0 (1.0-4.8) k/uL Monocytes # 0.5 (0-1.0) k/uL Eosinophils # 0.2 (0-0.7) k/uL Basophils # 0.1 (0-0.2) k/uL PT 11.1 (10.0-12.5) sec INR 1.0 (<1.2) APTT 25.0 (22.0-30.0) sec Sodium 136 L (137-145) mmol/L Potassium 4.7 (3.5-5.1) mmol/L Chloride 102 (98-107) mmol/L Carbon Dioxide 26 (22-30) mmol/L Anion Gap 8 mmol/L BUN 28 H (7-17) mg/dL Creatinine 0.85 (0.52-1.04) mg/dL Est GFR (CKD-EPI)AfAm 82 (>60 ml/min/1.73 sqM) Est GFR (CKD-EPI)NonAf 71 (>60 ml/min/1.73 sqM) Glucose 112 H (74-99) mg/dL Calcium 10.6 H (8.4-10.2) mg/dL Magnesium 2.1 (1.6-2.3) mg/dL Total Bilirubin 0.6 (0.2-1.3) mg/dL AST 35 (14-36) U/L ALT 18 (4-34) U/L Alkaline Phosphatase 123 (38-126) U/L Troponin I (0.000-0.034) ng/mL NT-Pro-B Natriuret Pep 398 pg/mL Total Protein 7.1 (6.3-8.2) g/dL Albumin 4.5 (3.5-5.0) g/dL TSH 2.360 (0.465-4.680) mIU/L Urine Color Urine Appearance (Clear) Urine pH (5.0-8.0) Ur Specific Fate (1.001-1.035) Urine Protein (Negative) Urine Glucose (UA) (Negative) Urine Ketones (Negative) Urine Blood (Negative) Urine Nitrite (Negative) Urine Bilirubin (Negative) Urine Urobilinogen (<2.0) mg/dL Ur Leukocyte Esterase (Negative) 04/11/24 04/11/24 04/12/24 Range/Units 23:22 23:33 03:10 WBC (3.8-10.6) k/uL RBC (3.80-5.40) m/uL Hgb (11.4-16.0) gm/dL Hct (34.0-46.0) % MCV (80.0-100.0) fL MCH (25.0-35.0) pg MCHC (31.0-37.0) g/dL RDW (11.5-15.5) % Plt Count (150-450) k/uL MPV Neutrophils % % Lymphocytes % % Monocytes % % Eosinophils % % Basophils % % Neutrophils # (1.3-7.7) k/uL Lymphocytes # (1.0-4.8) k/uL Monocytes # (0-1.0) k/uL Eosinophils # (0-0.7) k/uL Basophils # (0-0.2) k/uL PT (10.0-12.5) sec INR (<1.2) APTT (22.0-30.0) sec Sodium (137-145) mmol/L Potassium (3.5-5.1) mmol/L Chloride (98-107) mmol/L Carbon Dioxide (22-30) mmol/L Anion Gap mmol/L BUN (7-17) mg/dL Creatinine (0.52-1.04) mg/dL Est GFR (CKD-EPI)AfAm (>60 ml/min/1.73 sqM) Est GFR (CKD-EPI)NonAf (>60 ml/min/1.73 sqM) Glucose (74-99) mg/dL Calcium (8.4-10.2) mg/dL Magnesium (1.6-2.3) mg/dL Total Bilirubin (0.2-1.3) mg/dL AST (14-36) U/L ALT (4-34) U/L Alkaline Phosphatase (38-126) U/L Troponin I <0.012 <0.012 (0.000-0.034) ng/mL NT-Pro-B Natriuret Pep pg/mL Total Protein (6.3-8.2) g/dL Albumin (3.5-5.0) g/dL TSH (0.465-4.680) mIU/L Urine Color Colorless Urine Appearance Clear (Clear) Urine pH 6.0 (5.0-8.0) Ur Specific Fate 1.008 (1.001-1.035) Urine Protein Negative (Negative) Urine Glucose (UA) Negative (Negative) Urine Ketones Negative (Negative) Urine Blood Negative (Negative) Urine Nitrite Negative (Negative) Urine Bilirubin Negative (Negative) Urine Urobilinogen <2.0 (<2.0) mg/dL Ur Leukocyte Esterase Negative (Negative) Disposition Clinical Impression: Headache, Hypertension Disposition: HOME SELF-CARE Condition: Stable Instructions (If sedation given, give patient instructions): Hypertension (ED) Additional Instructions: Every disease is a spectrum and a small chance still exists that a serious condition could develop, for this reason, please monitor yourself closely for new, changing or worsening symptoms, severe headache or headache worsen you have ever had before, changes in vision, new numbness or weakness, chest pain or difficulty in breathing, swelling in your legs, abdominal pain, fever, inability to tolerate/keep down fluids or your medications, inability to follow up with outpatient providers as instructed and should you experience these symptoms or should you have any further concerns for your wellbeing please return to the ED or call 911 immediately. PLEASE call your primary care physician as soon as possible to arrange / discuss plan for followup appointment. Appointment in the next 1-3 days is strongly encouraged if possible. PLEASE let us know here before you leave if there is anything further we can do to be of any assistance. Take care and feel Better! Is patient prescribed a controlled substance at d/c from ED?: No Referrals: Anne Marie Webb MD [Primary Care Provider] - 1-2 days
[2024-04-11 23:39] LABS: Basophils # (A) 0.1 k/uL (0-0.2); Basophils % (A) 1 %; Eosinophils # (A) 0.2 k/uL (0-0.7); Eosinophils % (A) 3 %; HCT 38.7 % (34.0-46.0); HGB 13.1 gm/dL (11.4-16.0); Lymphocytes % (A) 28 %; MCH 30.2 pg (25.0-35.0); MCHC 33.8 g/dL (31.0-37.0); MCV 89.5 fL (80.0-100.0); Mean Platelet Volume 7.9; Monocytes # (A) 0.5 k/uL (0-1.0); Monocytes % (A) 8 %; Neutrophils # (A) 4.1 k/uL (1.3-7.7); Neutrophils % (A) 58 %; Platelet Count 274 k/uL (150-450); RBC 4.33 m/uL (3.80-5.40); RDW 14.6 % (11.5-15.5)
[2024-04-11 23:44] LABS: Appearance,Urine Clear (Clear); Bilirubin,Urine Negative (Negative); Blood,Urine Negative (Negative); Color,Urine Colorless; Glucose,Urine (UA) Negative (Negative); Ketones,Urine Negative (Negative); Leukocyte Esterase,Urine Negative (Negative); Nitrite,Urine Negative (Negative); Protein,Urine Negative (Negative); Specific Gravity,Urine 1.008 (1.001-1.035); Urobilinogen,Urine <2.0 mg/dL (<2.0)
[2024-04-11 23:50] LABS: Prothrombin Time 11.1 sec (10.0-12.5)
[2024-04-11] MEDS: diphenhydrAMINE 50 MG/ML 1 ML VIAL IVP STA (23:55)
[2024-04-11] MEDS: LIDOCAINE 4% PATCH TOPICAL ONE (23:56)
[2024-04-12 00:09] LABS: ALT 18 U/L (4-34); African American GFR (CKD) 82 (>60 ml/min/1.73 sqM); Anion Gap 8 mmol/L; Blood Urea Nitrogen 28 mg/dL (7-17); Calcium 10.6 mg/dL (8.4-10.2); Carbon Dioxide 26 mmol/L (22-30); Chloride 102 mmol/L (98-107); Glucose 112 mg/dL (74-99); Non-African American GFR(CKD) 71 (>60 ml/min/1.73 sqM); Sodium 136 mmol/L (137-145); Total Bilirubin 0.6 mg/dL (0.2-1.3)
[2024-04-12 00:18] LABS: NT-Pro-B-Type Natriuretic Pept 398 pg/mL
[2024-04-12] MEDS: carvediloL 3.125 MG TAB PO STA (00:20)
[2024-04-12] MEDS: ALPRAZolam 0.5 MG TAB PO STA (00:20)
[2024-04-12 00:37] LABS: AST 35 U/L (14-36); Albumin 4.5 g/dL (3.5-5.0); Magnesium 2.1 mg/dL (1.6-2.3); Potassium 4.7 mmol/L (3.5-5.1); Total Protein 7.1 g/dL (6.3-8.2)
[2024-04-12 00:38] LABS: Alkaline Phosphatase 123 U/L (38-126)
[2024-04-12 05:20] VITALS: BP 149/64; PULSE 61; RESP 16
== END 2024-04-12 05:20 | disposition home or self-care (01) ==
LOC: EC 22:50
DX: M79.7 Fibromyalgia (principal); I11.9 Hypertensive heart disease without heart failure; I25.10 Atherosclerotic heart disease of native coronary artery without angina pectoris; Z87.891 Personal history of nicotine dependence; Z88.5 Allergy status to narcotic agent; Z91.040 Latex allergy status; Z91.041 Radiographic dye allergy status; Z88.8 Allergy status to other drugs, medicaments and biological substances; Z88.1 Allergy status to other antibiotic agents; Z88.6 Allergy status to analgesic agent; Z91.048 Other nonmedicinal substance allergy status
CPT/HCPCS: 96374 ×2; 96375 ×2; 99284 ×2; 36415 ×2; 93005; 83880; 80053; 84443; 83735; 84484 ×2; 85025; 85610; 85730; 81003; J1200; J1920

== ENCOUNTER → 2024-04-23 | Outpatient (CLI) | payer MEDICARE, OTHER ==
--- NOTE | 2024-04-23 13:17 | MR ---
EXAMINATION TYPE: MR cervical spine wo con DATE OF EXAM: 04/23/2024 12:25 PM COMPARISON: MRI 03/19/2015. CLINICAL INDICATION: Female, 68 years old with history of M47.12 R29.2; PHH, Neck pain, stiffness, BU E radic, headaches. TECHNIQUE: Multi planar, multi sequence imaging was performed utilizing: T1-weighted, T2-weighted, an d turbo inversion recovery imaging of the cervical spine. IV Contrast: mL (None, if empty) FINDINGS: Alignment: The cervical vertebral bodies have preserved heights. Alignment is within normal limits gi cyndi patient positioning. Bones: Scattered Modic endplate changes with osteophytes and disc space narrowing. Multilevel degener ative disc disease is noted and most pronounced at the C5-C7 vertebral levels. Cord: The spinal cord is unremarkable with regards to their signal intensity and morphology. Discs: Intervertebral disc signal is maintained. C2-C3: A disc osteophyte complex is present which minimally narrows the ventral subarachnoid space. No neural foraminal stenosis. C3-C4: A disc osteophyte complex is present with mild spinal canal stenosis. Bilateral facet and unc overtebral joint arthropathy are present with mild bilateral neural foraminal stenosis. C4-C5: No significant disc pathology. The spinal canal is patent. Bilateral facet and uncovertebral joint arthropathy are present with mild right neural foraminal stenosis. The left neural foramen is p atent. C5-C6: A eccentric right disc osteophyte complex is present with mild spinal canal stenosis. No neur al foraminal stenosis. C6-C7: No significant disc pathology. The spinal canal is patent. No neural foraminal stenosis. C7-T1: No significant disc pathology. The spinal canal is patent. No neural foraminal stenosis. Other: None. IMPRESSION: 1. No evidence for disc herniation or significant spinal canal stenosis. 2. Moderate disc degeneration with associated osteoarthritic changes most pronounced in the lower cer vical spine C4-C5 and C6 [facility], , 04/23/2024 1:15 PM
== END | disposition home or self-care (01) ==
LOC: RADMRIMAIN 11:08
PROVIDERS: ATTEND Specialist
DX: M50.022 Cervical disc disorder at C5-C6 level with myelopathy (principal); M47.12 Other spondylosis with myelopathy, cervical region; R29.2 Abnormal reflex
CPT/HCPCS: 72141

== ENCOUNTER 2024-06-22 12:52 | Day surgery (SDC) | payer MEDICARE, OTHER ==
[2024-06-08 15:26] VITALS: BMI 39.6
[2024-06-22 13:21] VITALS: RESP 16; TEMP 97.6
[2024-06-22 13:39] LABS: Glucose,Whole Blood 178 mg/dL (70-110)
[2024-06-22] MEDS ORDERED: TRIAMCINOLONE ACETONIDE 40 MG/ML 1 ML VIAL ONE (14:40)
--- NOTE | 2024-06-22 14:52 | P.PCN ---
Description of Procedure: PREOPERATIVE DIAGNOSIS: 1- Lumbar Degenerative Disc Diseases 2-Lumbar spondylosis with Facet arthropathy without myelopathy. 3-lumbar spinal stenosis POSTOPERATIVE DIAGNOSIS: 1-lumbar degenerative disc disease. 2-lumbar spondylosis with facet arthropathy without myelopathy. 3-lumbar spinal stenosis. PROCEDURE Injection of radio contrast material into L3-4 interspace, interpretation of epidurogram, injection of steroid at L3-4 epidural space under fluoroscopic guidance. ANESTHESIA: Lidocaine 1% subcutaneously. In OR continuous pulse ox, EKG, blood pressure and verbal communication was maintained with the patient. EBL: Minimal PROCEDURE INDICATION: Before the procedure were discussed with the patient detailed procedure, alternatives, complications including infection, bleeding, nerve damage, paralysis all of which could be permanent. Patient understands and all questions were answered. Patient is allergic to IV contrast and Decadron and some other steroid. In the past Kenalog was used without any problem. That is why I am using Kenalog today and no IV contrast in the epidural space. PROCEDURE DESCRIPTION : After getting consent, patient in OR in prone position. Back was prepped with chlorhexidine and draped in sterile fashion. After injecting 10 mL of 1% lidocaine subcutaneously, a 20-gauge Tuohy needle was introduced at L3-4 interspace with loss of resistance technique using a syringe filled with air. Negative CSF, negative blood, negative paresthesia. Needle position was confirmed with AP and lateral view of the fluoroscope. No contrast was used as patient is allergic. After repeat negative aspiration 6 mL solution was injected intermittently which consists of 5 mL of preservative-free normal saline mixed with 1 mL of 40 mg of Kenalog.. Needle was withdrawn intact. Skin was cleansed and Band-Aids was applied. DISPOSITION / PLANS: The patient tolerated the procedure well. No complication. The patient was placed in a supine position and transferred to the recovery area in a stable condition for observation. There was no evidence of lower extremity motor or sensory deficit after the procedure. Patient was discharged from the recovery room after meeting discharge criteria. Home discharge instructions were given to the patient by the staff. The patient was reexamined prior to discharge. The patient will schedule a follow up in the clinic in 2-4 weeks.
[2024-06-22 15:01] VITALS: PULSE 71
--- NOTE | 2024-06-22 15:11 | FL ---
EXAMINATION TYPE: FL guided pain mgmt statistic DATE OF EXAM: 06/22/2024 3:02 PM COMPARISON: Pre Operative Images if available both CT/MRI or plain film CLINICAL INDICATION: Female, 68 years old with history of LESI BACK PAIN; TECHNIQUE: FL guided pain mgmt statistic, multiple fluoroscopic images provided for procedure. DAP: 0.41987 mGym2 Gycm2 uGym2 cGycm2 or equivalent. FINDINGS: Fluoroscopic images during injection for pain management demonstrate multilevel degeneration changes throughout the spine. No evidence for fracture. No acute process identified. IMPRESSION: 1. No evidence for intraoperative complication. 2. Please see the operative/procedural note for further details. [facility], , 06/22/2024 3:09 PM
[2024-06-22 15:12] VITALS: BP 149/84
== END 2024-06-22 15:27 | disposition home or self-care (01) ==
LOC: ORPAIN 12:52
PROVIDERS: ATTEND Anesthesiology
DX: M48.061 Spinal stenosis, lumbar region without neurogenic claudication (principal); M47.816 Spondylosis without myelopathy or radiculopathy, lumbar region; M51.369 Other intervertebral disc degeneration, lumbar region without mention of lumbar back pain or lower extremity pain
CPT/HCPCS: 62323; J3301

== ENCOUNTER → 2024-07-09 | Outpatient (CLI) | payer MEDICARE, OTHER ==
[2024-07-09 14:50] LABS: HCT 39.2 % (37.2-46.3); HGB 12.7 g/dL (12.0-15.0); MCH 30.8 pg (27.0-32.0); MCHC 32.4 g/dL (32.0-37.0); MCV 95.1 FL (80.0-97.0); NRBC Per 100 WBC 0 X 10*3/uL (0.00-0.01); Platelet Count 293 X 10*3/uL (140-440); RBC 4.12 X 10*6/uL (4.10-5.20); RDW 13.8 % (11.5-14.5); WBC 7.37 X 10*3/uL (4.50-10.00)
[2024-07-09 14:51] LABS: Basophils # (A) 0.06 X 10*3/uL (0.00-0.10); Basophils % (A) 0.8 %; Eosinophils # (A) 0.16 X 10*3/uL (0.04-0.35); Eosinophils % (A) 2.2 %; Lymphocytes # (A) 1.71 X 10*3/uL (0.90-5.00); Lymphocytes % (A) 23.2 %; Monocytes # (A) 0.78 X 10*3/uL (0.20-1.00); Monocytes % (A) 10.6 %; Neutrophils # (A) 4.65 X 10*3/uL (1.80-7.70); Neutrophils % (A) 63.1 %
[2024-07-09 15:32] LABS: ALT 32 U/L (8-44); AST 28 U/L (13-35); Albumin 4.2 g/dL (3.8-4.9); Albumin/Globulin Ratio 1.75 Ratio (1.60-3.17); Alkaline Phosphatase 120 U/L (41-126); BUN/Creat Ratio 19.46 Ratio (12.00-20.00); Blood Urea Nitrogen 25.3 mg/dL (9.0-27.0); Calcium 10.1 mg/dL (8.7-10.3); Carbon Dioxide 30.2 mmol/L (21.6-31.8); Chloride 99 mmol/L (96-109); Chol/HDL Ratio 3.11 Ratio; Globulin 2.4 g/dL (1.6-3.3); Glucose 101 mg/dL (70-110); Iron 95 UG/DL (50-170); LDL Cholesterol,Calculated 101.4 mg/dL (0.0-131.0); Magnesium 2.2 mg/dL (1.5-2.4); Potassium 5.2 mmol/L (3.5-5.5); Sodium 139 mmol/L (135-145); T4, Free (Free Thyroxine) 1.29 ng/dL (0.80-1.80); Total Bilirubin 0.4 mg/dL (0.3-1.2); Total Protein 6.6 g/dL (6.2-8.2)
== END | disposition home or self-care (01) ==
LOC: LABWHC1 10:28
PROVIDERS: ATTEND Student in an Organized Health Care Education/Training Program
DX: I12.9 Hypertensive chronic kidney disease with stage 1 through stage 4 chronic kidney disease, or unspecified chronic kidney disease (principal); E11.22 Type 2 diabetes mellitus with diabetic chronic kidney disease; E03.9 Hypothyroidism, unspecified; E55.9 Vitamin D deficiency, unspecified; N18.2 Chronic kidney disease, stage 2 (mild); D50.8 Other iron deficiency anemias; F41.9 Anxiety disorder, unspecified
CPT/HCPCS: 36415; 80053; 80061; 82306; 82607; 82728; 82746; 83036; 83540; 83735; 84439; 84443; 85025

== ENCOUNTER → 2024-07-18 | Outpatient (CLI) | payer MEDICARE, OTHER ==
[2024-07-18 11:09] VITALS: BP 130/86; PULSE 79; RESP 16; TEMP 95.8
--- NOTE | 2024-07-18 15:08 | P.PAINPG ---
PQRS Measure Charge Sheet Comment: HISTORY OF PRESENT ILLNESS: A 68 yr old female highlypresents today w severe and chronic LBP > 1 yr secondary to radiculopathy, spondylosis and facet arthropathy without myelopathy for evaluation s/p MARLEN L3-L4 #1. Pt states she experienced 50-60 % pain relief x 3 wks s/p procedure. Pt states pain level is provoked at 5-6 /10 in intensity, constant, localized in the cervicothoracic-lumbar spine, predominantly axial, achy in character without shooting pain Pain is provoked by over activity. Pain is alleviated by PT in 2020, chiropractic treatments monthly restarted since Dec 2023 which she is currently in, physician guided home stretches daily since 2022, heat, ice, medications, topical, use of a walker for ambulatory assistance, repositioning and rest . Interventional procedures include MARLEN L3-L4 x1 Medications include Tyl, Lidoderm, Hx of ETOH abuse (sober since 2016) REVIEW OF ORGAN SYSTEMS: CONSTITUTIONAL: No fevers or chills. No recent weight loss. NEUROLOGICAL: + numbness and tingling along the distal extremities. No seizure disorders or headaches. MUSCULOSKELETAL: + pain PSYCHIATRIC: Denies current depression or suicidal thoughts. Physical Examinations : Constitutional : Cooperative , not in acute distress . Neurologic : Cranial nerve II to XII intact. No focal neurological deficits. Psychiatric : alert & oriented x 3. Matching mood & appropriate affect. Judgment & insight intact. Musculoskeletal : Cervical Spine Motor strength in the deltoid and biceps: Normal right side. Normal Left side Motor strength biceps and the wrist extensors: Normal right side . Normal left side Motor strength in the triceps muscle: Normal right side. Normal left side Deep tendon reflexes: Normal at the biceps. Normal at Brachioradialis. Normal at triceps Vertebral body tenderness to deep palpation over Taut bands w twitch response over C6-S1 BL Cervical facet loading test: positive bilaterally Spurling test: positive bilaterally Neck distraction test: positive bilaterally Indigo sign: positive bilaterally Lumbar spine Motor strength lower extremities ,thigh and legs 5/5 Right side , 5/5 Left side Deep tendon reflexes : Normal Knee Jerk. Normal Ankle Jerk Vertebral body tenderness over L3 Roldan Test positive BL L3-L4 Lumbar facet Loading Test: positive Right / positive Left Range of motion of the lumbar spine Flexion 30 degrees, extension 10 degrees Straight Leg Raise test: Left/ Right positive at degrees Sheryl test: positive right / positive left. Severe tenderness over the Sacroiliac joint on the Right / Left sides Gaenslen test: positive bilaterally Seated flexion test: positive bilaterally. Sacral spine : Severe tenderness over the Sacroiliac joint: right side / left side Range of motion: Flexion of the lumbar spine <60 degrees Range of motion: Extension of the lumbar spine <20 degrees Gaenslen's Test positive Sheryl test: positive right side / left side Thigh Thrust Test Sacral Thrust Test Imaging: MRI non contrast lumbar spine from 02/20/24 reviewed Lumbar x ray from 05/03/22 reviewed Assessment/ Plan : L3-L5 spondylolisthesis, L4-L5 severe spinal stenosis, R lumbar spondylosis Recommendation of BL TPIs C6-S1 #1. Risks, benefits of procedure discussed and patient verbalized understanding. All questions answered. I have spent greater than 30 minutes on patient care today. Dr Hudson was available by phone for the evaluation of this patient. The time was used to review the medical records including relevant urine studies and Prescription history (MAPs), review of the available imaging, evaluation and examination of the patient, coordination of care with the medical staff and if applicable referring physicians, as well as creation of the medical record - Pain Location Lower Back Pharmacological Interventions: Epidural PQRS Narrative: Smoking Status Current every day smoker Hx Alcohol Use (MH) No Home Medications: Ambulatory Orders Levothyroxine Sodium [Synthroid] 50 mcg PO DAILY 07/23/18 Vitamin B Complex 1 cap PO DAILY 05/14/20 Cholecalciferol [Vitamin D3 (125 Mcg = 5000 Iu)] 125 mcg PO DAILY 11/12/22 Famotidine [Pepcid] 40 mg PO HS 11/12/22 Levocetirizine Dihydrochloride [Xyzal] 2.5 mg PO W/SUPPER 11/12/22 Multivitamins, Thera [Multivitamin (formulary)] 1 tab PO DAILY 11/12/22 buPROPion XL [Wellbutrin XL] 150 mg PO DAILY 11/12/22 Aspirin 81 mg PO DAILY 06/08/24 Ferrous Sulfate [Feosol] 325 mg PO DAILY 06/08/24 Magnesium 400 mg PO HS 06/08/24 Sennosides/Docusate Sodium [Senna Plus 8.6-50 mg Tablet] 1 each PO BID 06/08/24 Spironolactone 12.5 mg PO DAILY 06/08/24 amLODIPine [Norvasc] 5 mg PO DAILY 06/08/24 carvediloL [Coreg] 3.125 mg PO BID 06/08/24 hydrALAZINE HCL 10 mg PO TID 06/08/24 hydroCHLOROthiazide [Hydrodiuril] 12.5 mg PO DAILY 06/08/24 Controlled Substance Measures - Controlled Substance Measures Is patient prescribed a controlled substance at discharge?: No
== END ==
LOC: PNWHC3 10:27
PROVIDERS: ATTEND Specialist
DX: M47.816 Spondylosis without myelopathy or radiculopathy, lumbar region (principal); M43.17 Spondylolisthesis, lumbosacral region; M43.16 Spondylolisthesis, lumbar region; M48.061 Spinal stenosis, lumbar region without neurogenic claudication; F17.200 Nicotine dependence, unspecified, uncomplicated; Z88.0 Allergy status to penicillin; Z88.2 Allergy status to sulfonamides; Z88.1 Allergy status to other antibiotic agents; Z88.5 Allergy status to narcotic agent; Z88.6 Allergy status to analgesic agent; Z88.8 Allergy status to other drugs, medicaments and biological substances; Z91.040 Latex allergy status; Z91.048 Other nonmedicinal substance allergy status
CPT/HCPCS: 99211

== ENCOUNTER 2024-08-03 09:02 | Day surgery (SDC) | payer MEDICARE, OTHER ==
[2024-08-02 08:39] VITALS: BMI 40.4
[2024-08-03 09:57] VITALS: TEMP 98
[2024-08-03 10:06] LABS: Glucose,Whole Blood 162 mg/dL (70-110)
[2024-08-03] MEDS ORDERED: TRIAMCINOLONE ACETONIDE 40 MG/ML 1 ML VIAL ONE (10:50)
[2024-08-03] MEDS ORDERED: ROPIVACAINE 5MG/ML 20ML VIAL ONE (10:50)
--- NOTE | 2024-08-03 11:10 | P.PCN ---
Description of Procedure: Preprocedure diagnosis. Myofascial pain. Myofascial trigger point. Postprocedure diagnosis. As above. Procedure done. Myofascial trigger point injection with local anesthetics and steroid at 8 points. Anesthesia. Local anesthetic infiltration. In the OR continuous pulse ox, EKG, blood pressure, and verbal communication was maintained with the patient. Blood loss. None. Indication. Discussed with the patient procedure, alternatives and possible complications which may include infection, bleeding, nerve damage, aggravation of pain. Patient understands and all questions were answered. Procedure note. After getting consent patient in the procedure area. Most tender points were identified and marked. A 25-gauge needle attached to syringe was introduced at the trigger points and after negative aspiration 4 mL solution are injected at each trigger point. I injected 4 trigger points in bilateral cervical and thoracic paraspinal muscles, 2 trigger points in bilateral rhomboid and 2 trigger points in bilateral trapezius muscle medial to the inner border of scapula. Total 8 trigger points injected using 32 mL solution which consists of 30 mL of 0.5 ropivacaine mixed with 60 mg of Kenalog. Did not inject into lumbar trigger points today as the volume of local anesthetic could be unsafe area. She will be scheduled for lumbar trigger point injection in a separate date later on. Disposition. Patient tolerated the procedure well. No complication. Discharged home in stable condition.
[2024-08-03] MEDS: IV FLUID CONTINUATION 1,000 ML IV ONE (11:13)
[2024-08-03 11:15] VITALS: RESP 16
[2024-08-03 11:26] VITALS: BP 141/83; PULSE 73
== END 2024-08-03 11:32 | disposition home or self-care (01) ==
LOC: ORPAIN 09:02
PROVIDERS: ATTEND Pain Medicine Interventional Pain Medicine
DX: M79.18 Myalgia, other site (principal); E11.9 Type 2 diabetes mellitus without complications; Z88.0 Allergy status to penicillin; Z88.1 Allergy status to other antibiotic agents; Z88.5 Allergy status to narcotic agent; Z88.6 Allergy status to analgesic agent; Z88.8 Allergy status to other drugs, medicaments and biological substances; Z79.82 Long term (current) use of aspirin
CPT/HCPCS: 20553; J3301; J2795

== ENCOUNTER → 2024-09-26 | Outpatient (CLI) | payer MEDICARE, OTHER ==
[2024-09-26 18:28] LABS: BUN/Creat Ratio 23.33 Ratio (12.00-20.00); Carbon Dioxide 27.9 mmol/L (21.6-31.8); Chloride 97 mmol/L (96-109); Glucose 160 mg/dL (70-110); Potassium 4.8 mmol/L (3.5-5.5); Sodium 136 mmol/L (135-145)
== END | disposition home or self-care (01) ==
LOC: LABWHC1 11:15
PROVIDERS: ATTEND Student in an Organized Health Care Education/Training Program
DX: N18.31 Chronic kidney disease, stage 3a (principal)
CPT/HCPCS: 36415; 80048